=== PATIENT | female | born 1980 | race Caucasian/White ===

== ENCOUNTER 2017-08-23 09:53 | Emergency (ER) | payer OTHER, SELFPAY ==
[2017-08-23 09:54] VITALS: BP 130/56; PULSE 107; RESP 17; TEMP 36.3; O2SAT 96; BMI 38.0
--- NOTE | 2017-08-23 10:08 | ED.VISSUMM ---
- ER Visit Summary Date of Service: 08/23/17 Chief Complaint: Abdominal pain, nausea, vomiting, diarrhea History of Present Illness: The patient is a 36 F who states she started feeling ill at work around 2 AM this morning. She went home at 5 with body aches, nausea, vomiting, and diarrhea. She has not noted a fever. Physical Examination: Vital signs are significant only for heart rate 107, otherwise unremarkable. Patient's lying in bed no acute distress. Head neck examination is unremarkable. Heart is mildly tachycardic and regular. Lung sounds are clear. Abdomen is soft with mild lower abdominal tenderness palpation. There is no guarding or rebound. Hypoactive bowel sounds are noted. Test Results: CBC was normal white count with a mild left shift. Chemistry studies are unremarkable. Urinalysis shows 150 ketones. No sign of infection. test is negative. Emergency Department Course and Treatment: Patient was given IV fluids, morphine, and Zofran. She is tolerating ice chips at this time. She was given another dose of Toradol for mild recurrent pain. This time patient be given prescriptions for Zofran and Bentyl at home. She is to return for worsening symptoms or if she spikes a fever. Treatment Plan: [] Disposition: Discharge Impression: Viral gastroenteritis This note was generated with [employer] dictation software. It may contain incorrect words, spelling, and punctuation that were not noted in review of the chart prior to signing ED Disposition - Plan for ED Patient: Chief Complaint: Abd Pain Referrals: Care Physician,No Primary [Primary Care Provider] -
[2017-08-23 10:38] LABS: Absolute Lymphocyte Count 0.29 X10^3/ul (0.83-4.51); Basophil# 0.01 X10^3/uL; Basophil% 0.1 % (0-1); Differential Indicated SCAN CRITERIA MET; Eosinophil# 0.02 X10^3/uL; Eosinophils% 0.2 % (0-5); Hematocrit 37.9 % (37-47); Hemoglobin 13.2 g/dl (12.0-15.0); Lymphocyte # 0.29 X10^3/ul (4.0); Lymphocyte % 2.7 % (19-41); Mean Corp Hgb Conc 34.8 g/gl (32-36); Mean Corpuscular Hgb 31.8 pg (27.0-32.0); Mean Corpuscular Volume 91.3 fL (81-99); Mean Platelet Vol. 9.5 fl (6.2-12.0); Monocyte# 0.23 X10^3/uL; Monocyte% 2.2 % (0-10); Neutrophil # 9.98 X10^3/uL (2.7-7.7); Neutrophil % 94.6 % (47-70); POSITIVE COUNT NO; POSITIVE DIFFERENTIAL YES; POSITIVE MORPHOLOGY NO; Platelet Count 286 K/mm3 (150-450); RBC Distribution Width CV 12.5 % (11.6-14.6); RBC Distribution Width SD 41.6 fl (35.1-43.9); Red Blood Count 4.15 M/mm3 (4.2-5.4); White Blood Count 10.6 K/mm3 (4.4-11.0)
[2017-08-23 10:59] LABS: Anion Gap 10 (5-15); BUN 19 mg/dL (7-18); BUN/Creat Ratio 24.8 RATIO (10-20); Calcium,Total 8.8 mg/dL (8.5-10.1); Chloride 105 mmol/L (98-107); Creatinine, Serum 0.77 mg/dL (0.55-1.02); EST Glomerular Filtration Rate 91 mL/min (>60); Est Glom Filt Rate - Afr Amer 110 mL/min (>60); Estimated Creatinine Clearance 95.46 ml/min; Glucose 122 mg/dL (74-106); Sodium Level 138 mmol/L (136-145)
[2017-08-23 11:02] LABS: Pregnancy, Serum, hCG Quali. NEGATIVE Negative (0-9 Nonpreg)
[2017-08-23] MEDS: 0.9% Normal Saline 1,000 ML 1000 ML IV (11:16)
[2017-08-23] MEDS: Ondansetron 4 MG/2 ML Vial IV (11:17)
[2017-08-23 11:23] LABS: Mucous, Urine 0 SEEN /hpf (<or=2+); White Blood Cells 0 SEEN /hpf (0-5)
[2017-08-23 11:27] LABS: Color, Urine Yellow (Yellow); Glucose, Dipstick Normal (Normal); Leukocyte Esterase-Dipstick 25 /ul (Negative); Nitrite-Dipstick Negative (Negative); Occult Blood-Urine 150 /ul (Negative); Protein-Dipstick Negative (Negative); Specific Gravity, Urine 1.015 (1.002-1.030); Urine Bilirubin Dipstick Negative (Negative); Urine Clarity Clear (Clear); Urine Urobilinogen Normal (Normal)
[2017-08-23 11:29] LABS: Ketone-Dipstick 150 mg/dl (Negative)
[2017-08-23 11:35] LABS: Bacteria RARE /hpf (None Seen); Red Blood Cells-Urine 0-5 SEEN /hpf (0-5); Squamous Epithelial Cells - UA 5-10 SEEN /hpf (5-10)
[2017-08-23 12:01] VITALS: BP 122/64; PULSE 93; RESP 16; O2SAT 99
[2017-08-23] MEDS: Ketorolac 30 MG/ML Syringe IV (12:19)
[2017-08-23] MEDS: 0.9% Normal Saline 1,000 ML 150 ML IV (12:19)
--- NOTE | 2017-08-23 12:40 | ED.DEP ---
ED Disposition - Plan for ED Patient: Disposition: Home or Assisted Living Chief Complaint: Abd Pain Instructions: ED Gastroenteritis Viral Prescriptions: Ondansetron [Zofran Odt] 4 mg PO Q8H PRN PRN #10 tablet PRN Reason: Nausea Dicyclomine HCl [Bentyl] 20 mg PO TIDAC #20 capsule Referrals: Rosalina Billingsley MD [COURTESY STAFF PHYSICIAN] - As Needed
== END 2017-08-23 13:19 | disposition home or self-care (01) ==
PROVIDERS: Emergency Provider Emergency Medicine
DX: A08.4 Viral intestinal infection, unspecified (principal); K21.9 Gastro-esophageal reflux disease without esophagitis
CPT/HCPCS: 80048; 81001; 84703; 85025; 96361; 96374; 96375; 99283; J7030; J2405

== ENCOUNTER → 2018-10-24 13:13 | Outpatient (CLI) | payer OTHER, SELFPAY ==
[2018-10-23 13:33] VITALS: BMI 38.0
--- NOTE | 2018-10-24 13:15 | RAD_ITS ---
STUDY: X-RAY - LUMBAR SPINE REASON FOR EXAM: Female, 37 years old. Back pain TECHNIQUE: 3 view(s) of the lumbar spine were obtained. COMPARISON: None FINDINGS: There is no evidence of fracture or dislocation in the lumbar spine. The vertebral body heights are well-maintained. There are moderate degenerative changes at L5/S1 with disc space narrowing. RAD/Lumbar Spine 2 or 3 Views IMPRESSION: No fracture or dislocation in the lumbar spine. Moderate degenerative changes at L5/S1. Electronically Signed: Aston Wills, at 16:46 EDT Tel , Service support ,
== END ==
PROVIDERS: Family Provider Family Medicine; PCP Family Medicine; Referring Provider Family Medicine; Visit Provider Family Medicine
DX: R20.0 Anesthesia of skin (principal)
CPT/HCPCS: 72100

== ENCOUNTER → 2018-11-05 13:06 | Outpatient (CLI) | payer OTHER, SELFPAY ==
[2018-10-23 13:33] VITALS: BMI 38.0
--- NOTE | 2018-11-05 13:07 | US_ITS ---
STUDY: ULTRASOUND OF THE FEMALE PELVIS - COMPLETE REASON FOR EXAM: Female, 37 years old. Pain in the pelvis. TECHNIQUE: Transabdominal and transvaginal. (Transvaginal imaging, if present, was performed for enhanced visualization of uterus and endometrium, and posterior adnexal structures). COMPARISON: None. FINDINGS: Uterus retroverted 7.8 x 5.8 x 5.2 cm, fibroid measuring 21 mm, otherwise normal myometrial echotexture. Endometrium 11 mm, normal echotexture. Minimal left adnexal free fluid. No cul-de-sac or adnexal free fluid. Normal cervix. Right ovary 32 x 20 x 18 mm, normal echotexture and vascularity, 15 mm complex cyst likely representing a hemorrhagic cyst. No right adnexal mass or suspicious cyst. Left ovary 47 x 32 x 26 mm, normal echotexture and vascularity 30 x 27 x 19 mm simple cyst, thin-walled, centrally anechoic. Adjacent fluid suggesting cyst rupture. US/Pelvic (Non ) IMPRESSION: 1. 15 mm complex cystlike focus within the right ovary, probably a hemorrhagic cyst. 2. Simple cyst of the left ovary measuring 30 mm with fluid in the adjacent left adnexa suggesting cyst rupture. 3. 21 mm left left posterior uterine body fibroid. Electronically Signed: Gregg Kay MD at 15:42 EDT Tel , Service support ,
--- NOTE | 2018-11-05 13:28 | US_ITS ---
STUDY: ULTRASOUND OF THE FEMALE PELVIS - COMPLETE REASON FOR EXAM: Female, 37 years old. Pain in the pelvis. TECHNIQUE: Transabdominal and transvaginal. (Transvaginal imaging, if present, was performed for enhanced visualization of uterus and endometrium, and posterior adnexal structures). COMPARISON: None. FINDINGS: Uterus retroverted 7.8 x 5.8 x 5.2 cm, fibroid measuring 21 mm, otherwise normal myometrial echotexture. Endometrium 11 mm, normal echotexture. Minimal left adnexal free fluid. No cul-de-sac or adnexal free fluid. Normal cervix. Right ovary 32 x 20 x 18 mm, normal echotexture and vascularity, 15 mm complex cyst likely representing a hemorrhagic cyst. No right adnexal mass or suspicious cyst. Left ovary 47 x 32 x 26 mm, normal echotexture and vascularity 30 x 27 x 19 mm simple cyst, thin-walled, centrally anechoic. Adjacent fluid suggesting cyst rupture. US/Transvaginal Non- IMPRESSION: 1. 15 mm complex cystlike focus within the right ovary, probably a hemorrhagic cyst. 2. Simple cyst of the left ovary measuring 30 mm with fluid in the adjacent left adnexa suggesting cyst rupture. 3. 21 mm left left posterior uterine body fibroid. Electronically Signed: Gregg Kay MD at 15:42 EDT Tel , Service support ,
== END ==
LOC: OPUS 13:07
PROVIDERS: Family Provider Family Medicine; PCP Family Medicine; Referring Provider Family Medicine; Visit Provider Family Medicine
DX: R10.2 Pelvic and perineal pain (principal)
CPT/HCPCS: 76830; 76856; 93976

== ENCOUNTER → 2019-08-28 | Outpatient (CLI) | payer OTHER, SELFPAY ==
[2019-08-28 13:06] VITALS: BMI 38.0
[2019-09-02 13:44] LABS: HPV APTIMA, High Risk Negative (Negative)
== END | disposition home or self-care (01) ==
LOC: LABSPEC 17:15
PROVIDERS: PCP Family Medicine; Referring Provider Nurse Practitioner Women's Health; Visit Provider Nurse Practitioner Women's Health
DX: Z12.4 Encounter for screening for malignant neoplasm of cervix (principal)
CPT/HCPCS: 87624; 88175; G0145

== ENCOUNTER → 2020-10-14 14:56 | Outpatient (CLI) | payer OTHER, SELFPAY ==
[2020-10-13 15:58] VITALS: BMI 32.3
[2020-10-14 16:46] LABS: Absolute Lymphocyte Count 2.24 X10^3/uL (0.83-4.51); Absolute Neutrophil Count 4.1 X10^3/uL (2.0-7.7); Basophil# 0.03 X10^3/uL; Basophil% 0.4 % (0-1); Eosinophil# 0.03 X10^3/uL; Eosinophils% 0.4 % (0-5); Hematocrit 34.7 % (37-47); Hemoglobin 11.5 g/dL (12.0-15.0); Lymphocyte # 2.24 X10^3/ul (0.83-4.51); Lymphocyte % 33.1 % (19-41); Mean Corp Hgb Conc 33.1 g/dL (32-36); Mean Corpuscular Volume 96.7 fL (81-99); Mean Platelet Vol. 10.1 fl (6.2-12.0); Monocyte# 0.36 X10^3/uL; Monocyte% 5.3 % (0-10); NRBC Flagged by Analyzer 0 % (0-5); Neutrophil % 60.7 % (47-70); Platelet Count 329 K/mm3 (150-450); RBC Distribution Width SD 42.2 fl (35.1-43.9); Red Blood Count 3.59 M/mm3 (4.2-5.4); White Blood Count 6.8 K/mm3 (4.4-11.0)
[2020-10-14 17:00] LABS: Vitamin D,25 Hydroxy 35.7 ng/mL
== END ==
PROVIDERS: PCP Family Medicine; Referring Provider Family Medicine; Visit Provider Family Medicine
DX: R79.89 Other specified abnormal findings of blood chemistry (principal); R53.83 Other fatigue
CPT/HCPCS: 36415; 82306; 85025

== ENCOUNTER 2021-09-13 15:17 | Outpatient (CLI) | payer BC, SELFPAY ==
--- NOTE | 2021-09-13 15:21 | US_ITS ---
STUDY: SUPERFICIAL ULTRASOUND OF THE LEFT MID BACK OF 1540 HOURS ON 09/13/2021 REASON FOR EXAM: 40-year-old female with a suspected lipoma on the back. TECHNIQUE: A superficial ultrasound was performed with real-time and static arango-scale imaging. COMPARISON: None. FINDINGS: There is a 3.8 cm x 2.2 cm x 0.8 cm slightly hyperechoic lesion just below the skin of the left mid back. Past history of characterization compatible with subcutaneous fat. It most likely represents a lipoma. There is no ultrasound evidence of valvular cystic or solid mass lesions in the mid left back region. US/Other Unlisted US Procedure IMPRESSION: 1. Probable 3.8 cm x 2.2 cm x 0.8 cm lipoma in the left mid back region. 2. No demonstration of other cystic or solid mass lesions in the left mid back region. Electronically Signed: Maury Armstrong MD at 18:28 EDT ,
== END 2021-09-13 23:59 | disposition home or self-care (01) ==
LOC: US 15:20
PROVIDERS: PCP Family Medicine; Referring Provider Family Medicine; Visit Provider Family Medicine
DX: D17.1 Benign lipomatous neoplasm of skin and subcutaneous tissue of trunk (principal)
CPT/HCPCS: 76999

== ENCOUNTER 2021-11-05 17:14 | Emergency (ER) | payer BC, SELFPAY ==
[2021-11-05 17:15] VITALS: BP 137/72; PULSE 76; RESP 16; TEMP 37.1; O2SAT 99; BMI 35.5
--- NOTE | 2021-11-05 19:35 | EDS_ITS ---
HPI History of Present Illness Chief Complaint: GI Bleed Informant: patient Onset/Context/Timing Onset: Weeks Context: Gradual Onset Timing: Waxes and wanes Current Severity: Moderate Maximum Severity: Moderate Narrative Narrative: Patient present secondary to GI bleed. She has had bright red blood in the stool intermittently for the last month. She is also occasionally noted dark black stools. She states her abdomen feels crampy and bloated. Today she went to the bathroom and just passed straight red blood with no stool. She called her PCPs office to make an appointment she was told to come to the emergency room. Denies prior work-up for symptoms. She has never had a colonoscopy. She does report a history of colon cancer in the family but denies history of ulcerative colitis, IBS, Crohn's disease. [facility] Medical History (Updated 11/05/21 @ 21:[address] Jana Garrison MD) Frequent headaches GERD (gastroesophageal reflux disease) Seasonal allergies Vitamin deficiency Home Medications ibuprofen 200 mg capsule 200 mg PO Q6H PRN 08/28/19 [History Last Taken Unknown] iron 18 mg tablet 18 mg PO DAILY 02/09/21 [History Last Taken Unknown] multivitamin 1 tab PO DAILY 02/09/21 [History Last Taken Unknown] norgestimate 0.25 mg-ethinyl estradiol 35 mcg tablet 1 tab PO DAILY #84 tab 02/09/21 [Rx Last Taken Unknown] Allergy/AdvReac Type Severity Reaction Status Date / Time No Known Allergies Allergy Verified 11/05/21 17:15 Family History Father Alcoholism Anxiety Depression Hypertension Brother Alcoholism Depression Mother Asthma Anxiety Depression Cancer lung Grandfather Diabetes Alcoholism Cancer kidney Hypertension Grandmother Cancer Aunt Thyroid disorder Cancer Grandfather Colon cancer Surgical History History of neck surgery Social History Smoking Status: Former smoker alcohol intake: current alcohol intake frequency: holidays/special occasions only details: social substance use type: does not use caffeine: Yes what type of physical activity do you participate in: none and walking seatbelt use: always do you feel safe at home: Yes additional social history: Steven Nieto Patient works at [employer] ROS ED Constitutional Constitutional ED: Denies chills or fever(s) Eyes Eyes: Denies change in vision ENT ENT ED: Denies sore throat Cardiovascular Cardiovascular: Denies chest pain Respiratory/Chest Respiratory/Chest: Denies cough or dyspnea Gastrointestinal Gastrointestinal: Reports abdominal pain and melena; Denies diarrhea, nausea or vomiting Genitourinary Genitourinary ED: Denies dysuria Musculoskeletal Musculoskeletal: Denies back pain Integumentary Denies rash Neurologic Neurologic: Denies headache(s) or weakness Allergic/Immunologic Allergic/Immunologic ED: Denies urticaria EXAM Physical Exam Const Vital Signs: 11/05/21 17:15 Temperature 98.8 F Temperature Source Temporal Pulse Rate 76 Respiratory Rate 16 Blood Pressure 137/72 H Blood Pressure Mean 93 Pulse Ox 99 Oxygen Delivery Method Room Air Positive well nourished and well developed General Appearance ED: well developed HEENT Reports moist mucous membranes Eyes PERRL and EOMs intact bilaterally Neck supple Chest Wall inspection of chest normal and palpation of chest normal Resp normal respiratory effort and clear to auscultation bilaterally Cardio regular rate and regular rhythm GI normal to inspection, nondistended, normoactive bowel sounds and non-tender Palpation: soft Back/Spine no CVA tenderness Extremity normal to inspection Neuro oriented x3 Sensorium / Orientation: alert Psych mental status grossly normal Skin no rashes or lesions noted MDM MDM MDM Narrative Medical decision making narrative: Lab work obtained. Lab Data Attestation: I reviewed the patient's lab results. Labs: Laboratory Results - last 24 hr 11/05/21 11/05/21 11/05/21 19:46 19:46 19:46 WBC 6.1 RBC 3.64 L Hgb 11.7 L Hct 34.7 L MCV 95.3 MCH 32.1 H MCHC 33.7 RDW Std Deviation 41.7 RDW Coeff of [place] 11.9 Plt Count 304 MPV 9.3 Immature Gran % (Auto) 0.200 Neut % (Auto) 60.6 Lymph % (Auto) 31.8 [place] % (Auto) 6.4 Eos % (Auto) 0.7 Baso % (Auto) 0.3 Absolute Neuts (auto) 3.7 Absolute Lymphs (auto) 1.94 Nucleated RBC % 0 PT 13.7 INR 1.1 APTT 27.1 Sodium 140 Potassium 3.7 Chloride 106 Carbon Dioxide 28.0 Anion Gap 6 BUN 12 Creatinine 0.73 Estim Creat Clear Calc 96.86 Est GFR (MDRD) Af Amer 114 Est GFR (MDRD) Non-Af 94 BUN/Creatinine Ratio 16.4 Glucose 99 Calcium 9.0 Serum , Qual 11/05/21 19:46 WBC RBC Hgb Hct MCV MCH MCHC RDW Std Deviation RDW Coeff of [place] Plt Count MPV Immature Gran % (Auto) Neut % (Auto) Lymph % (Auto) [place] % (Auto) Eos % (Auto) Baso % (Auto) Absolute Neuts (auto) Absolute Lymphs (auto) Nucleated RBC % PT INR APTT Sodium Potassium Chloride Carbon Dioxide Anion Gap BUN Creatinine Estim Creat Clear Calc Est GFR (MDRD) Af Amer Est GFR (MDRD) Non-Af BUN/Creatinine Ratio Glucose Calcium Serum , Qual NEGATIVE Treatment and Re-Evaluation Narrative: Hemoglobin stable 11.7 from 1 year ago. Coags unremarkable. Chemistry studies normal. On repeat evaluation patient stable. Rectal examination performed. There is a small hemorrhoid that is noninflamed with no blood. Patient is had intermittent bleeding for a month with stable vital signs and labs. I do feel she can follow-up as an outpatient. She will be referred to Dr. Alvarez. I did advise her that if there is a delay in getting into see him she should follow-up with her primary care physician for referral to surgery to see if she can be scoped that way. She voices understanding and agreement. Return instructions provided. Discharge Plan Triage Chief Complaint: GI Bleed ED Provider: Jana Garrison Dx/Rx/DC Orders Clinical Impression: GI bleed Instructions: ED Lower GI Bleeding (Stable) Prescriptions: No Action ibuprofen 200 mg capsule 200 mg PO Q6H PRNRF: 0 multivitamin Tablet 1 tab PO DAILY RF: 0 iron 18 mg tablet 18 mg PO DAILY RF: 0 norgestimate-ethinyl estradiol [[place]] 0.25-35 mg-mcg tablet 1 tab PO DAILY Qty: 84 RF: 4 Primary Care Provider: Ben Loza Referrals: Ben Loza DO [Primary Care Provider] - Rao Alvarez DO [STAFF PHYSICIAN] - As soon as possible Disposition Disposition: Home, Self Care
[2021-11-05] MEDS: 0.9% Normal Saline 1,000 ML 150 ML IV (19:45)
[2021-11-05 19:57] LABS: Absolute Lymphocyte Count 1.94 X10^3/uL (0.83-4.51); Absolute Neutrophil Count 3.7 X10^3/uL (2.0-7.7); Basophil# 0.02 X10^3/uL; Basophil% 0.3 % (0-1); Eosinophil# 0.04 X10^3/uL; Eosinophils% 0.7 % (0-5); Hematocrit 34.7 % (37-47); Hemoglobin 11.7 g/dL (12.0-15.0); Lymphocyte # 1.94 X10^3/ul (0.83-4.51); Lymphocyte % 31.8 % (19-41); Mean Corp Hgb Conc 33.7 g/dL (32-36); Mean Corpuscular Hgb 32.1 pg (27.0-32.0); Mean Corpuscular Volume 95.3 fL (81-99); Mean Platelet Vol. 9.3 fl (6.2-12.0); Monocyte# 0.39 X10^3/uL; Monocyte% 6.4 % (0-10); NRBC Flagged by Analyzer 0 % (0-5); Neutrophil # 3.71 X10^3/uL (2.7-7.7); Neutrophil % 60.6 % (47-70); Platelet Count 304 K/mm3 (150-450); RBC Distribution Width CV 11.9 % (11.6-14.6); RBC Distribution Width SD 41.7 fl (35.1-43.9); Red Blood Count 3.64 M/mm3 (4.2-5.4); White Blood Count 6.1 K/mm3 (4.4-11.0)
[2021-11-05 20:11] LABS: Internal QC Validated? YES +Cl - CLEAR BKGD; Pregnancy, Serum, hCG Quali. NEGATIVE Negative
[2021-11-05 20:12] LABS: Anion Gap 6 (5-15); BUN 12 mg/dL (7-18); BUN/Creat Ratio 16.4 RATIO (10-20); Chloride 106 mmol/L (98-107); Creatinine, Serum 0.73 mg/dL (0.55-1.02); EST Glomerular Filtration Rate 94 mL/min (>60); Est Glom Filt Rate - Afr Amer 114 mL/min (>60); Estimated Creatinine Clearance 96.86 ml/min; Glucose 99 mg/dL (74-106); Potassium 3.7 mmol/L (3.5-5.1); Sodium Level 140 mmol/L (136-145)
[2021-11-05 20:43] LABS: International Normalized Ratio 1.1; Prothrombin Time (Protime)PT. 13.7 SECONDS (11.7-14.9)
[2021-11-05 20:44] LABS: Partial Thromboplast Time 27.1 Seconds (24.1-36.2)
== END 2021-11-05 21:44 | disposition home or self-care (01) ==
PROVIDERS: Emergency Provider Emergency Medicine; PCP Family Medicine; Visit Provider Emergency Medicine
DX: K92.2 Gastrointestinal hemorrhage, unspecified (principal); Z80.0 Family history of malignant neoplasm of digestive organs; Z87.891 Personal history of nicotine dependence
CPT/HCPCS: 80048; 84703; 85025; 85610; 85730; 96360; 96361; 99283; J7030; A4216

== ENCOUNTER → 2021-12-21 | Outpatient (CLI) | payer BC, SELFPAY ==
[2021-12-21 15:47] LABS: Absolute Lymphocyte Count 1.56 X10^3/uL (0.83-4.51); Basophil# 0.02 X10^3/uL; Basophil% 0.3 % (0-1); Eosinophil# 0.04 X10^3/uL; Eosinophils% 0.5 % (0-5); Hemoglobin 12.3 g/dL (12.0-15.0); Lymphocyte # 1.56 X10^3/ul (0.83-4.51); Lymphocyte % 19.6 % (19-41); Mean Corp Hgb Conc 34.2 g/dL (32-36); Mean Corpuscular Hgb 32.2 pg (27.0-32.0); Mean Corpuscular Volume 94.2 fL (81-99); Mean Platelet Vol. 9.5 fl (6.2-12.0); Monocyte# 0.31 X10^3/uL; Monocyte% 3.9 % (0-10); NRBC Flagged by Analyzer 0 % (0-5); Neutrophil # 5.98 X10^3/uL (2.7-7.7); Neutrophil % 75.3 % (47-70); Platelet Count 338 K/mm3 (150-450); RBC Distribution Width CV 12.2 % (11.6-14.6); RBC Distribution Width SD 42.4 fl (35.1-43.9); Red Blood Count 3.82 M/mm3 (4.2-5.4); White Blood Count 7.9 K/mm3 (4.4-11.0)
[2021-12-21 15:59] LABS: Erythrocyte Sedimentation Rate 4 mm/hr (0-30)
[2021-12-21 16:16] LABS: ALB/GLOB Ratio 1.1 RATIO (0.9-2.4); AST(SGOT) 18 U/L (15-37); Alanine Aminotransfer ALT/SGPT 21 U/L (13-56); Albumin, Serum 3.9 g/dL (3.2-5.0); Alkaline Phosphatase 40 U/L (45-117); Anion Gap 7 (5-15); BUN 15 mg/dL (7-18); BUN/Creat Ratio 20.5 RATIO (10-20); CRP < 2.90 mg/L (0.0-3.0); Calcium,Total 9.1 mg/dL (8.5-10.1); Chloride 104 mmol/L (98-107); Creatinine, Serum 0.73 mg/dL (0.55-1.02); EST Glomerular Filtration Rate 94 mL/min (>60); Est Glom Filt Rate - Afr Amer 113 mL/min (>60); Ferritin 59 ng/mL (8-252); Globulin 3.5 g/dL (2.2-4.2); Glucose 84 mg/dL (74-106); Iron 119 ug/dL (50-170); Iron Binding Capacity,Total 435 ug/dL (250-450); Potassium 3.5 mmol/L (3.5-5.1); Protein, Total 7.4 g/dL (6.4-8.2); Sodium Level 138 mmol/L (136-145)
[2021-12-23 14:09] LABS: Anti-Centromere B Ab <0.2 AI (0.0-0.9); Anti-Chromatin <0.2 AI (0.0-0.9); Anti-Jo <0.2 AI (0.0-0.9); Anti-Scleroderma-70 AB <0.2 AI (0.0-0.9); RNP Ab <0.2 AI (0.0-0.9); SJOGREN'S Anti-SS-A test < 0.2 AI (0.0-0.9); SJOGREN'S Anti-SS-B test < 0.2 AI (0.0-0.9); Smith Ab <0.2 AI (0.0-0.9)
[2021-12-23 16:00] LABS: Anti-dsDNA Ab <1 IU/mL (0-9)
[2021-12-23 18:08] LABS: Endomysial Antibody IgA Negative (Negative)
[2021-12-24 10:03] LABS: Immunoglobulin A 167 mg/dL (87-352); t-Transglutaminase IgA <2 U/mL (0-3)
== END | disposition home or self-care (01) ==
LOC: LAB 14:07
PROVIDERS: PCP Family Medicine; Referring Provider Nurse Practitioner Adult Health; Visit Provider Nurse Practitioner Adult Health
DX: K92.1 Melena (principal); K21.9 Gastro-esophageal reflux disease without esophagitis; R10.9 Unspecified abdominal pain
CPT/HCPCS: 36415; 80053; 82728; 82784; 83516; 83540; 83550; 85025; 85652; 86140; 86225; 86235; 86255

== ENCOUNTER → 2021-12-22 | Outpatient (CLI) | payer BC, SELFPAY ==
[2021-12-29 09:34] LABS: Calprotectin, Stool 61 ug/g (0-120)
== END | disposition home or self-care (01) ==
LOC: LABSPEC 16:14
PROVIDERS: PCP Family Medicine; Visit Provider Nurse Practitioner Adult Health
DX: K58.9 Irritable bowel syndrome, unspecified (principal); K92.1 Melena; K21.9 Gastro-esophageal reflux disease without esophagitis; R10.9 Unspecified abdominal pain
CPT/HCPCS: 83630; 83993

== ENCOUNTER → 2022-01-12 | Outpatient (CLI) | payer OTHER, SELFPAY ==
--- NOTE | 2022-01-12 15:58 | CT_ITS ---
EXAM: CT ABDOMEN AND PELVIS WITH INTRAVENOUS CONTRAST CLINICAL INDICATION: blood in stool, abd pain, RLQ tender on exam -- oral and iv. BLOATING AND CRAMPING X 2 MONTHS TECHNIQUE: Helically acquired images were obtained of the abdomen and pelvis with intravenous contrast. DLP: 1119.30 mGy-cm and CTDI: 15.[address] exam was performed using one or more of the following dose reduction techniques: automated exposure control, adjustment of the mA and/or kV according to patient size, and/or use of iterative reconstruction technique. This report was created using NaviExpert report SCHEDit technology. CONTRAST: Oral and amp; IV Readi-CAT and amp; 100mL Isovue-300 COMPARISON: None. FINDINGS: LOWER THORAX: Unremarkable. Lung bases are clear. No cardiomegaly. No significant pericardial effusion. ABDOMEN: LIVER: Small incidental simple cyst within the central liver. GALLBLADDER AND BILE DUCTS: Unremarkable. No calcified gallstones. No gallbladder distention or wall edema. No intra- or extrahepatic biliary ductal dilation. PANCREAS: Unremarkable. No focal cystic or solid mass. SPLEEN: Unremarkable. Normal size without focal cystic or solid mass. ADRENALS: Unremarkable. No nodules. KIDNEYS AND URETERS: Unremarkable. Normal renal size and position. No hydronephrosis. STOMACH AND BOWEL: The stomach is decompressed. No periduodenal inflammatory changes or distended small bowel loops. Oral contrast passes through the small bowel into the colon, without evidence for small bowel obstruction. No small bowel mural thickening is seen. The cecum, ascending colon and transverse colon containing oral contrast, gas and a moderate amount of stool. Multiple diverticula project from the descending and sigmoid colon, without evidence for acute diverticulitis. No findings of small bowel obstruction or colitis. PELVIS: APPENDIX: Normal appendix. No findings of acute appendicitis. BLADDER: Unremarkable. REPRODUCTIVE: Normal size uterus which tilts to the left. No adnexal mass. ABDOMEN and PELVIS: INTRAPERITONEAL SPACE: Unremarkable. No ascites or other fluid collection. No free air. BONES/JOINTS: Severe degenerative disc space narrowing at L5/S1 with endplate sclerosis, marginal osteophytes and vacuum disc phenomenon. Narrowing of the inferior neural foramina at this level by posterolateral osteophytes. No suspicious lytic or blastic abnormality. SOFT TISSUES: Unremarkable. No discrete abdominal or pelvic wall hernia. VASCULATURE: Unremarkable. Abdominal aorta is non-dilated. LYMPH NODES: Unremarkable. No enlarged lymph nodes. CT/Abdomen/Pelvis WITH Contrast IMPRESSION: Normal appendix. No findings of inflammatory bowel disease. Colonic diverticulosis without evidence for acute diverticulitis. No acute intra-abdominal abnormality. Electronically Signed: Rayray Spaulding MD at 6:39 EDT ,
== END | disposition home or self-care (01) ==
LOC: CT 15:48
PROVIDERS: PCP Family Medicine; Visit Provider Nurse Practitioner Adult Health
DX: R10.813 Right lower quadrant abdominal tenderness (principal); K92.1 Melena
CPT/HCPCS: 74177; Q9967

== ENCOUNTER 2022-03-02 07:50 | Day surgery (SDC) | payer OTHER, SELFPAY ==
--- NOTE | 2022-03-02 | GASB_PTH ---
PATIENT: MONA UPTON LOC: EN U#:[id number] AGE/SX: 41/F ROOM: RE03/02/[address]: Dr. Rao Alvarez DO : 1980 BED: DIS: 03/02/2022 SPEC #: [id number] RECD: 03/02/22 12:49 STATUS: SHERRELL REMagdy #: [id number] DARRELL: 03/02/22 00:[address]: Rao Alvarez DEPT: SURGICAL PATHOLOGY RECD BY: Jai Awad ENTERED: 03/02/22 12:50 SP TYPE: Gastric Bx OTHR DR: Dr. Ben Loza, DO Tissues: A - Duodenum, NOS B - Gastric mucous membrane C - Esophageal mucous membrane D - Rectum, NOS Procedures: Special Stain Group II Surgery Specimen Level IV Alcian Blue/PAS (control) HEADER OPERATION: Colonoscopy, EGD ([facility]) with biopsies PRE-OP DIAGNOSIS: Hematochezia, GERD, abdominal pain, IBS TISSUE SUBMITTED: A ? Duodenum biopsy, B ? Gastric body biopsy, C ? Distal esophagus biopsy, D ? Biopsy of mass in rectum MICROSCOPIC DIAGNOSIS A. 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 B. Gastric body, biopsy: Minimal gastritis. See microscopic description and comment. C. Distal esophagus, biopsy: Fragments of gastric mucosa with chronic inflammation. Intestinal metaplasia (goblet cell metaplasia) not identified. See comment. D. Rectal mass, biopsy: Well-differentiated invasive adenocarcinoma. See comment. SJ:sherice 03/03/2022 COMMENT B. The results of immunohistochemistry for Helicobacter pylori will be reported separately ([id number]). C. Alcian blue/PAS stain with matched control is used in the evaluation of the specimen. D. Immunohistochemistry ([id number]) for microsatellite instability (mismatch repair of protein) will be performed and the results will be reported separately. Case has been reviewed in consultation with Dr. Vasquez who concurs with the above diagnosis. IDC:AM MICROSCOPIC DESCRIPTION Slides are reviewed. B. The specimen shows fragments of gastric mucosa with chronic inflammatory cell infiltrates in the lamina propria consisting of lymphocytes and plasma cells, consistent with minimal chronic gastritis. GROSS DESCRIPTION A - Received in fixative is one container labeled with the patient's name and designated duodenum biopsy. The specimen consists of one irregular fragment of light avalos soft tissue that measures 0.4 x 0.4 x 0.1 cm. The specimen is totally submitted in one cassette. B - Received in fixative is one container labeled with the patient's name and designated gastric body biopsy. The specimen consists of one irregular fragment of light avalos soft tissue that measures 0.8 x 0.3 x 0.1 cm. The specimen is totally submitted in one cassette. C - Received in fixative is one container labeled with the patient's name and designated distal esophagus biopsy. The specimen consists of two irregular fragments of light avalos soft tissue that in aggregate measure 0.8 x 0.3 x 0.1 cm. The specimen is totally submitted in one cassette. D - Received in fixative is one container labeled with the patient's name and designated biopsy of mass in rectum. The specimen consists of multiple irregular fragments of light avalos soft tissue that in aggregate measure 1.5 x 0.8 x 0.1 cm. The specimen is totally submitted in one cassette. / SJ:rg 03/02/2022 TC:0 [facility]: [id number] x4, [id number]
[2022-03-02 08:14] VITALS: BP 123/75; PULSE 85; RESP 14; TEMP 36; O2SAT 99; BMI 33.4
--- NOTE | 2022-03-02 08:15 | PCM.HP.BLA ---
History and Physical Date of Admission: 03/02/22 MONA UPTON, is a 41 F who presents to the office today for f/u ED visit for blood in stool She has been taking and iron supplement daily for about a year.? She has not been taking Pepto-Bismol.? Starting in early September 2021 she has had intermittent bright red blood per rectum with bowel movements as well as periodic black stools.? On one occasion she passed red blood per rectum without having a bowel movement.? She called her primary care office and was directed to go to the emergency room.? Therefore she went to the ED on 11/05/2021.? Hemoglobin was 11.7.? Rectal exam was performed, there was a small hemorrhoid with no blood.? She also passed some bright red blood per rectum without having a bowel movement. She stopped ibuprofen then.? She was seen in primary care on 11/12/2021; she was started on dicyclomine 20 mg twice daily for abdominal discomfort, as well as pantoprazole 40 mg daily for GERD.? She was given low FODMAP diet information and has found that helpful. She reports a lifelong history of GI issues, since her parents had the same issues she just thought this was normal.? She has always had heartburn.? Previously she always had burning in her esophagus, however lately she experienced more of a burning in her stomach.? Now that she is taking pantoprazole she is no longer waking up at night with reflux.? Also she no longer has the burning in her stomach.? She previously took [id number] famotidine as needed with partial relief of symptoms.? The dicyclomine is very helpful for bloating and cramping abdominal pain.? She reports the bloating and cramping has also been a lifelong issue. ? Some nausea, not often, no pattern. No vomiting. No difficulty swallowing. Briefly lost appetite for a week, thinks that may have been when she started pantoprazole and dicyclomine, that resolved spontaneously. No weight change.? Her normal bowel pattern was to alternate between diarrhea and constipation, now improved, having BM which is normal every day once a day, but may have some urgency. No hx EGD or colonoscopy. FH colon cancer maternal grandfather, maternal uncle. Mother had RA, colon polyps, from lung cancer. Father has RA. She was taking ibuprofen for aching in her legs, neck and back, as well as headaches. Comorbidities include headaches, seasonal allergies, vitamin D deficiency, PMS, dysmenorrhea, depression ROS Const Constitutional: Positive for fatigue and headache(s) ENT ENT: Positive for headache(s); No difficulty swallowing Gastro GI: Positive for abdominal pain, bloating, heartburn, excessive flatus and nausea/dyspepsia; No belching, change in bowel habits, change in stool character, coffee ground emesis, constipation, cramping, diarrhea, difficulty swallowing, feeling full early, incontinent of stools, Vomiting blood/hematemesis, Blood in stool, loose stools, Black,tarry stools, pain with swallowing, vomiting or other Musc Musculoskeletal: Positive for muscle cramps, muscle weakness, stiffness and leg pain at night; No joint pain Skin Skin: No yellowing of the eye or itchy eyes Neuro Neurology: Positive for headache(s) Psych Psychiatric: No anxiety and No depression Endo Endocrine: Positive for fatigue Aller/Imm Allergy/Immunologic: No itchy eyes Jean Claude/Lymp Hematologic/Lymphatic: No easy bleeding or easy bruising Exam Const General: cooperative, comfortable, well developed and well groomed Nutritional Appearance: obese Eyes General: appearance normal, both eyes and all related structures Resp Effort & Inspection: normal respiratory effort GI Inspection: normal to inspection Palpation: soft, no hepatosplenomegaly, no masses and tender in the RLQ and periumbilically Skin General: no jaundice Neuro Speech: speech normal Gait: normal gait Quality Reporting Tobacco Screening ([facility] 138) Smoking Status: Former smoker Assessment and Plan Assessment and Plan (1) Hematochezia: ?Status:?Acute ?Plan: 41-year-old female with hematochezia and melena, anemia, GERD, possible IBS with alternating diarrhea and constipation.? Differential diagnosis includes esophagitis, gastritis, peptic ulcer disease, IBD.? Biochemical work-up will be initiated today to include evaluation for IBD, autoimmune, celiac, iron studies.? Stool tests for inflammation.? Insurance changing end of this week so patient requests we hold off on ordering CT until later.? CT recommended considering GI bleed, abdominal pain, abdominal tenderness on exam.? She will be scheduled for EGD and colonoscopy; need to evaluate for Jessica's considering long history of heartburn; need to evaluate lower GI tract considering melena and hematochezia.? Follow-up appointments will be scheduled. (2) GERD (gastroesophageal reflux disease): ?Status:?Acute ?Plan: Continue pantoprazole (3) Abdominal pain: ?Status:?Acute ?Plan: As above (4) IBS (irritable bowel syndrome): ?Status:?Acute ?Plan: Continue dicyclomine I have re-examined the patient. There are no clinical changes since date of exam.
[2022-03-02] MEDS: Lactated Ringers 1,000 ML 15 ML IV (08:18)
[2022-03-02 08:44] LABS: Internal QC Validated? YES +Cl - CLEAR BKGD; Pregnancy, Serum, hCG Quali. NEGATIVE Negative
--- NOTE | 2022-03-02 09:00 | IMM_PTH ---
PATIENT: MONA UPTON LOC: EN U#:[id number] AGE/SX: 41/F ROOM: RE03/02/[address]: Dr. Rao Alvarez DO : 1980 BED: DIS: 03/02/2022 SPEC #: [id number] RECD: 03/02/22 13:26 STATUS: SHERRELL REQ #: [id number] DARRELL: 03/02/22 09:[address]: Rao Alvarez DEPT: IMMUNOHISTOCHEMISTRY RECD BY: Ysabel Abel ENTERED: 03/02/22 13:26 SP TYPE: IMMUNO OTHR DR: Dr. Ben Loza, DO Tissues: B - Stomach, NOS D - Rectum, NOS Procedures: H Pylori (initial) MSH2 (add) MLH-1 (add) MSH6 (add) Anti-PMS2 (add) STEELE-2 (add) KI-67 (add) P53 (add) HER-2-JERONIMO (initial) PHYSICIAN & INSTITUTION [address] [address] SPECIMEN INFORMATION: Tissue Source: B ? Gastric body, D ? Rectum mass biopsy Clinical Info: Hematochezia, GERD, abdominal pain, IBS Specimen Number: [id number] B & D CPT code: 27118 x2, 36817 x7 METHODOLOGY: Deparaffinized sections of prefer/formalin-fixed tissue or PAP/DQ stained slides are incubated with monoclonal/polyclonal antibodies/oligonucleotide probes. Localization is made via biotin free immunoperoxidase method. Appropriate controls are performed and reacted as expected. Results on target cell population are indicated in the following table: RESULTS: ANTIBODY / CLONE RESULT Block B H Pylori (polyclonal) negative Block D Her-2neu (CB11) negative (0) STEELE-2 (SP21) positive MLH-1 (M1) positive MSH2 (25D12) positive MSH6 (44) positive PMS2 (YTH4126) positive Ki-67 (30-9) positive, high P53 (DO-7) positive These tests were developed and their performance characteristics determined by [facility]. They may not have been cleared or approved by the U.S. Food and Drug Administration. The FDA has determined that such clearance or approval is not necessary. The above immunohistochemical/dualISH markers are ordered and reviewed by the Pathologist. INTERPRETATION: B. Gastric body, biopsy: Negative for Helicobacter pylori organisms. D. Rectum mass, biopsy Invasive adenocarcinoma. Result of Microsatellite Instability Study: Negative (no loss of mismatch protein; no microsatellite instability detected). SJ:sherice 03/04/2022
[2022-03-02] MEDS: 0.9% Normal Saline (Pres. free 10 ML Vial (09:46)
[2022-03-02] MEDS: Epinephrine (1 mg/ml) 1 MG/ML VIAL (09:46)
[2022-03-02 09:55] VITALS: BP 123/75; BP 92/67; PULSE 87; RESP 18; TEMP 36.3; O2SAT 100
--- NOTE | 2022-03-02 09:56 | OP.EGD_ITS ---
Patient Name: Li Singh Procedure Date: 03/02/2022 8:58 AM Date of : 1980 Age: 41 Procedure: Upper GI endoscopy Indications: Hematochezia Providers: Rao Alvarez DO Medicines: Monitored Anesthesia Care Patient Profile: This is a 41 year old female. Refer to note in patient chart for documentation of history and physical. Patient has symptoms of chronic abdominal cramping and acute right upper quadrant abdominal pain. Complications: No immediate complications. Procedure: Pre-Anesthesia Assessment: - Prior to the procedure, a History and Physical was performed, and patient medications and allergies were reviewed. The risks and benefits of the procedure and the sedation options and risks were discussed with the patient. All questions were answered and informed consent was obtained. Patient identification and proposed procedure were verified by the physician in the pre-procedure area. Mental Status Examination: alert and oriented. Airway Examination: normal oropharyngeal airway and neck mobility. Respiratory Examination: clear to auscultation. CV Examination: normal. Prophylactic Antibiotics: The patient does not require prophylactic antibiotics. Prior Anticoagulants: The patient has taken no previous anticoagulant or antiplatelet agents. After reviewing the risks and benefits, the patient was deemed in satisfactory condition to undergo the procedure. The anesthesia plan was to use monitored anesthesia care (MAC). Immediately prior to administration of medications, the patient was re-assessed for adequacy to receive sedatives. The heart rate, respiratory rate, oxygen saturations, blood pressure, adequacy of pulmonary ventilation, and response to care were monitored throughout the procedure. The physical status of the patient was re-assessed after the procedure. After obtaining informed consent, the endoscope was passed under direct vision. Throughout the procedure, the patient's blood pressure, pulse, and oxygen saturations were monitored continuously. The pediatric colonoscope was introduced through the mouth, and advanced to the second part of duodenum. The upper GI endoscopy was accomplished without difficulty. The patient tolerated the procedure well. Scope In: 9:12:01 AM Scope Out: 9:15:49 AM Total Procedure Duration Time 0 hours 3 minutes 48 seconds Findings: The Z-line was irregular and was found 40 cm from the incisors. Biopsies were taken with a cold forceps for histology. Verification of patient identification for the specimen was done. Estimated blood loss was minimal. A medium-sized hiatal hernia was present. Patchy mildly erythematous mucosa without bleeding was found in the gastric body. Biopsies were taken with a cold forceps for histology. Verification of patient identification for the specimen was done. Estimated blood loss was minimal. The second portion of the duodenum was normal. Biopsies were taken with a cold forceps for histology. Verification of patient identification for the specimen was done. Estimated blood loss was minimal. Impression: - Z-line irregular, 40 cm from the incisors. Biopsied. - Medium-sized hiatal hernia. - Erythematous mucosa in the gastric body. Biopsied. - Normal second portion of the duodenum. Biopsied. Recommendation: - Discharge patient to home. - Resume previous diet. - Continue present medications. - Await pathology results. Procedure Code(s): --- Professional --- 26331, Esophagogastroduodenoscopy, flexible, transoral; with biopsy, single or multiple CPT copyright 2017 [employer]. All rights reserved. The codes documented in this report are preliminary and upon rug measurer review may be revised to meet current compliance requirements. Rao Alvarez DO 03/02/2022 9:55:47 AM This report has been signed electronically. Number of Addenda: 0 Note Initiated On: 03/02/2022 8:58 AM
--- NOTE | 2022-03-02 09:56 | OP.CCLET_ITS ---
03/02/2022 Ben Loza Re : Upper GI endoscopy procedure for Li Singh Dear Dr. Loza This procedure was performed on Wednesday, March 02, 2022. My impressions and recommendations are as follows: Impressions : - Z-line irregular, 40 cm from the incisors. Biopsied. - Medium-sized hiatal hernia. - Erythematous mucosa in the gastric body. Biopsied. - Normal second portion of the duodenum. Biopsied. Recommendations : - Discharge patient to home. - Resume previous diet. - Continue present medications. - Await pathology results. My findings are described in the full procedure note, which is enclosed. If I can be of further assistance, please feel free to contact me at . Sincerely, Rao Friend, 03/02/2022 9:55:47 AM This report has been signed electronically.
[2022-03-02 10:00] VITALS: BP 123/75; BP 98/57; PULSE 85; RESP 18; O2SAT 100
--- NOTE | 2022-03-02 10:03 | OP.COLON_ITS ---
Patient Name: Li Singh Procedure Date: 03/02/2022 9:16 AM Date of : 1980 Age: 41 Procedure: Colonoscopy Indications: Hematochezia Providers: Rao Alvarez DO Medicines: Monitored Anesthesia Care Patient Profile: This is a 41 year old female. Refer to note in patient chart for documentation of history and physical. Patient has symptoms of chronic abdominal cramping and acute right upper quadrant abdominal pain. Last Colonoscopy: none. The patient's first colonoscopy is today. Complications: No immediate complications. Procedure: Pre-Anesthesia Assessment: - Prior to the procedure, a History and Physical was performed, and patient medications and allergies were reviewed. The risks and benefits of the procedure and the sedation options and risks were discussed with the patient. All questions were answered and informed consent was obtained. Patient identification and proposed procedure were verified by the physician in the pre-procedure area. Mental Status Examination: alert and oriented. Airway Examination: normal oropharyngeal airway and neck mobility. Respiratory Examination: clear to auscultation. CV Examination: normal. Prophylactic Antibiotics: The patient does not require prophylactic antibiotics. Prior Anticoagulants: The patient has taken no previous anticoagulant or antiplatelet agents. After reviewing the risks and benefits, the patient was deemed in satisfactory condition to undergo the procedure. The anesthesia plan was to use monitored anesthesia care (MAC). Immediately prior to administration of medications, the patient was re-assessed for adequacy to receive sedatives. The heart rate, respiratory rate, oxygen saturations, blood pressure, adequacy of pulmonary ventilation, and response to care were monitored throughout the procedure. The physical status of the patient was re-assessed after the procedure. After I obtained informed consent, the scope was passed under direct vision. Throughout the procedure, the patient's blood pressure, pulse, and oxygen saturations were monitored continuously. The Colonoscope was introduced through the anus and advanced to the terminal ileum. The colonoscopy was performed without difficulty. The patient tolerated the procedure well. The quality of the bowel preparation was good. Scope In: 9:17:37 AM Scope Withdrawal Time 0 hours 25 minutes 15 seconds Scope Out: 9:49:02 AM Total Procedure Duration Time 0 hours 31 minutes 25 seconds Findings: The perianal and digital rectal examinations were normal. An ulcerated non-obstructing large mass was found in the rectum. The mass was non-circumferential. The mass measured three cm in length. In addition, its diameter measured five mm. Oozing was present. This was biopsied with a cold forceps for histology. Verification of patient identification for the specimen was done. Estimated blood loss was minimal. Area was successfully injected with 5 mL of a 1:10,000 solution of epinephrine for hemostasis. Coagulation for hemostasis using heater probe was successful. Estimated blood loss was minimal. Multiple small and large-mouthed diverticula were found in the sigmoid colon, descending colon and splenic flexure. Impression: - Rule out malignancy, tumor in the rectum. Biopsied. Injected. Treated with a heater probe. - Diverticulosis in the sigmoid colon, in the descending colon and at the splenic flexure. Recommendation: - Discharge patient to home. - Await pathology results. - Repeat colonoscopy for surveillance based on pathology results. - Refer to an oncologist in 1 day. - Continue present medications. Procedure Code(s): --- Professional --- 28940, Colonoscopy, flexible; with control of bleeding, any method CPT copyright 2017 [employer]. All rights reserved. The codes documented in this report are preliminary and upon mail sorting supervisor review may be revised to meet current compliance requirements. Rao Alvarez DO 03/02/2022 10:02:42 AM This report has been signed electronically. Number of Addenda: 0 Note Initiated On: 03/02/2022 9:16 AM
--- NOTE | 2022-03-02 10:04 | OP.CCLET_ITS ---
03/02/2022 Ben Loza Re : Colonoscopy procedure for Li Singh Dear Dr. Loza This procedure was performed on Wednesday, March 02, 2022. My impressions and recommendations are as follows: Impressions : - Rule out malignancy, tumor in the rectum. Biopsied. Injected. Treated with a heater probe. - Diverticulosis in the sigmoid colon, in the descending colon and at the splenic flexure. Recommendations : - Discharge patient to home. - Await pathology results. - Repeat colonoscopy for surveillance based on pathology results. - Refer to an oncologist in 1 day. - Continue present medications. My findings are described in the full procedure note, which is enclosed. If I can be of further assistance, please feel free to contact me at . Sincerely, Rao Friend, 03/02/2022 10:02:42 AM This report has been signed electronically.
[2022-03-02 10:05] VITALS: BP 123/75; BP 98/52; PULSE 74; RESP 18; O2SAT 100
[2022-03-02 10:10] VITALS: BP 123/75; BP 90/71; PULSE 82; RESP 18; TEMP 36.4; O2SAT 100
[2022-03-02 10:30] VITALS: BP 123/75
== END 2022-03-02 11:04 | disposition home or self-care (01) ==
LOC: EN 07:59 → AC 07:59
PROVIDERS: Anesthesiology; PCP Family Medicine; Referring Provider Family Medicine; Visit Provider Internal Medicine Gastroenterology
PROC: 0DJD8ZZ Inspection of Lower Intestinal Tract, Via Natural or Artificial Opening Endoscopic (ICD-10-PCS; CPT 45378; principal; 2022-03-02 08:55)
DX: K92.1 Melena (principal); Z87.891 Personal history of nicotine dependence; K57.30 Diverticulosis of large intestine without perforation or abscess without bleeding; D64.9 Anemia, unspecified; K44.9 Diaphragmatic hernia without obstruction or gangrene; K58.9 Irritable bowel syndrome, unspecified; K21.9 Gastro-esophageal reflux disease without esophagitis
CPT/HCPCS: 45382; 43239; 84703; 88305; 88313; 88341; 88342; J7120; J2405; J3490

== ENCOUNTER → 2022-03-16 | Outpatient (CLI) | payer OTHER, SELFPAY | END | disposition home or self-care (01) | LOC: LABSPEC 15:49 | PROVIDERS: PCP Family Medicine; Referring Provider Family Medicine; Visit Provider Family Medicine | DX: L08.9 Local infection of the skin and subcutaneous tissue, unspecified (principal) | CPT/HCPCS: 87070; 87077; 87186; 87205 ==

== ENCOUNTER 2022-03-17 16:54 | Outpatient (CLI) | payer OTHER, SELFPAY ==
--- NOTE | 2022-03-17 16:54 | MRI_ITS ---
STUDY: MR PELVIS WITH T WITHOUT CONTRAST REASON FOR EXAM: Female, 41 years old. STAGING RECTAL CA TECHNIQUE: Standardized fat and water weighted pulse sequences were obtained in all 3 orthogonal planes, pre-and post contrast administration. IV 19CC Dotarem was administered for the contrast portion of the examination. COMPARISON: January 20, 2022 CT. FINDINGS: Asymmetric irregular solid-appearing predominantly semicircular rectal wall thickening, sparing the right 9:00 position inferiorly with possible circumferential component at the superior margin, greatest in thickness at the left 3:00 position, compatible with carcinoma. The masslike wall thickening begins at the anorectal angle and extends 5.5 cm cephalad, approximately to the level of the posterior vaginal fornix, likely just above the peritoneal reflection. Anal evaluation is limited by confluence of soft tissues without definitive involvement of internal sphincter, intersphincteric space, or external sphincter. Muscularis propria appears intact along the length of the rectal mass without evidence of extension into the mesorectal fat. No evidence of extramural vascular invasion. Scattered distal colonic diverticulosis without evidence of diverticulitis in the study field of view. Unremarkable bladder. Lobulated fibroid uterus with hypoenhancing posterior fundal exophytic 1.5 cm subserosal fibroid and mildly enhancing anterior body 2.3 cm fibroid. Ovaries are symmetric and normal in size with small follicles up to 6 mm on the left. No significant pelvic free fluid. Oval 9 x 13 mm and 6 x 7 mm oval circumscribed right obturator lymph nodes are noted. The larger lymph node is slightly heterogeneous with indistinct margins on axial imaging. The smaller lymph node is circumscribed and homogeneous. No acute osseous finding. MRI/Pelvis W/WO Contrast IMPRESSION: Findings concerning for low rectal carcinoma in the appropriate setting as described above with intact muscularis propria compatible with T1 or T2 lesion. No visualized anal sphincter involvement. Right obturator lymph nodes 9 and 6 mm in short axis as described above, with 9 mm lymph node being suspicious by size criteria. Sigmoid diverticulosis without evidence of diverticulitis. Fibroid uterus. Unremarkable symmetric ovaries with small follicles. Electronically Signed: Butch Joaquin MD at 5:06 EDT ,
== END 2022-03-17 23:59 | disposition home or self-care (01) ==
PROVIDERS: PCP Family Medicine; Visit Provider Internal Medicine Medical Oncology
DX: C20 Malignant neoplasm of rectum (principal)
CPT/HCPCS: 72197; A9575

== ENCOUNTER → 2022-03-21 | Outpatient (CLI) | payer OTHER, SELFPAY ==
--- NOTE | 2022-03-21 16:48 | CT_ITS ---
EXAM: CT CHEST AND ABDOMEN WITH INTRAVENOUS CONTRAST CLINICAL INDICATION: STAGING RECTAL CANCER TECHNIQUE: Helically acquired images were obtained of the chest and abdomen with intravenous contrast. This CT exam was performed using one or more of the following dose reduction techniques: automated exposure control, adjustment of the mA and/or kV according to patient size, and/or use of iterative reconstruction technique. This report was created using clickTRUE report generation technology. CONTRAST: 100 cc of Isovue-370 IV. Oral contrast. RADIATION DOSE: CTDIvol = 17.17 mGy, DLP = 1077.97 mGy-cm. COMPARISON: None. FINDINGS: CHEST: LUNGS AND PLEURAL SPACES: Unremarkable. No mass. No consolidation or edema. No pleural effusion or thickening. No pneumothorax. HEART: Unremarkable. Heart size is normal. No pericardial effusion. No significant coronary artery calcifications. MEDIASTINUM: Unremarkable. No mediastinal or hilar adenopathy. Esophagus is unremarkable. No hiatal hernia. THYROID: Unremarkable. No thyroid lesions. ABDOMEN: LIVER: Small cyst measuring 1 cm left lobe of the liver. GALLBLADDER AND BILE DUCTS: Unremarkable. No calcified gallstones. No gallbladder distention or wall edema. No intra- or extrahepatic biliary ductal dilation. PANCREAS: Unremarkable. No focal cystic or solid mass. SPLEEN: Small splenule anterior to the spleen. ADRENALS: Unremarkable. No nodules. KIDNEYS AND URETERS: Unremarkable. Normal renal size and position. No hydronephrosis. STOMACH AND BOWEL: Unremarkable. No stomach or bowel distention. No focal inflammatory change. INTRAPERITONEAL SPACE: Unremarkable. No ascites or other fluid collection. No free air. CHEST and ABDOMEN: BONES/JOINTS: Unremarkable. No suspicious lytic or blastic abnormality. SOFT TISSUES: Unremarkable. No discrete abdominal wall hernia. VASCULATURE: Unremarkable. Aorta is non-dilated. No aortic dissection. No obvious central pulmonary embolism although this study was not performed with the pulmonary embolism protocol. LYMPH NODES: Unremarkable. No enlarged lymph nodes. CT/CT Chest AND Abd W/ Contrast IMPRESSION: No signs of metastatic disease. Electronically Signed: Akbar Grover MD at 7:02 EDT ,
== END | disposition home or self-care (01) ==
LOC: CT 16:45
PROVIDERS: PCP Family Medicine; Referring Provider Internal Medicine Medical Oncology; Visit Provider Internal Medicine Medical Oncology
DX: C20 Malignant neoplasm of rectum (principal)
CPT/HCPCS: 71260; 74160; Q9967

== ENCOUNTER → 2022-03-24 | Outpatient (CLI) | payer OTHER, SELFPAY ==
[2022-03-24 13:58] LABS: NATERA MAILED SPECIMEN
== END | disposition home or self-care (01) ==
LOC: LAB 12:54
PROVIDERS: PCP Family Medicine; Visit Provider Internal Medicine Medical Oncology
DX: Z14.8 Genetic carrier of other disease (principal); Z80.1 Family history of malignant neoplasm of trachea, bronchus and lung
CPT/HCPCS: 36415

== ENCOUNTER → 2022-06-21 | Outpatient (CLI) | payer OTHER, SELFPAY | END | disposition home or self-care (01) | LOC: LABSPEC 16:24 | PROVIDERS: PCP Family Medicine; Visit Provider Nurse Practitioner Women's Health | DX: N89.8 Other specified noninflammatory disorders of vagina (principal) | CPT/HCPCS: 87070; 87205 ==

== ENCOUNTER 2022-06-30 16:55 | Outpatient (RCR) | payer OTHER, SELFPAY ==
--- NOTE | 2022-06-30 18:45 | HP.PTEVAL ---
Patient's Visit Information MONA UPTON is a 41 year old F referred to Physical Therapy by LARISSA Shi with a diagnosis of CERVICALAGIA ,MUSCLE CRAMPS. Date of Evaluation: 06/30/22 Physical Therapist: Molina Phan, PT, Cert MDT, [facility] - Visit Plan Frequency: 2x /Week Duration: 4 Weeks Plan: NO MODALITIES ACTIVE CANCER ON CHEMO. PT INTERVETIONS FOCUS ON MANUAL THERAPY (STM) ,FLEXABLITY AND POSTURAL EX'S - Subjective This 41 y/o female presents to physical therapy with cervicalgia and muscle cramps. Patient has recently diagnosed with rectal CA sine FEB ,initially did radiation then started chemo IV and chemo pills at [facility]. Plans to have surgery when chemo is finished. Patient has had cervical pain and CANCHOLA many years but since being on chemo treatments symptoms with CANCHOLA worsening. Patient develops CANCHOLA occiput region and temporal. Cervical pain cervical and UT which changes location. Aggravating chemo ,stress ,decrease activity . Alleviating factors rest. Denies dizziness ,IV treatments nausea . Denies tinnitus. Denies paresthesia/tingling. Difficulty falling asleep. . Patient condition affects QOL and ADLS's. VOCATION: [employer] unable to work. SOCIAL: single. - Pain Bilateral Neck Pain Intensity (Out of 10): 4 Pain Intensity Range: 10 - Objective POSTURE: mild forward posture. NUERO: denies paresthesia/tingling ,reflexes C5-6-7 2/3. PALPATION : tender UT/levator/OA. CERVICAL ROM: flexion WFL ,extension min loss ,lateral flexion min loss,rotation min loss. BUE AROM: WFL. MMT: grossly 4/5. UPPER CERVICAL SPINE: upper cervical spine mod tight - Special Tests C/S Radiculapathy - Left Upper limb tension test: Negative C/S Radiculapathy - Right Upper limb tension test: Negative C/S Radiculapathy - Left Spurlings: Negative C/S Radiculapathy - Right Spurlings: Negative C/S Radiculapathy - Left Cervical distraction: Negative C/S Radiculapathy - Right Cervical distraction: Negative C/S Radiculapathy - Left Relief test: Negative Sharp Rcik: Negative Vertebral Artery Test: Negative Alar Ligament Test: Negative - Balance/Special Test Scores Oswestry Neck Score: 18 - Goals Goal 1:: Patient to be I with HEP Goal Time Frame: 4-6 Weeks Goal 2:: Patient to demonstrate 50% improvement with increase function and less CANCHOLA/cervical pain. Goal Time Frame: 4-6 Weeks Goal 3:: Patient improve cervical ROM for function of recovery to improve function Goal Time Frame: 4-6 Weeks Goal 4:: Patient to improve neck oswetry score by 5 points to improve QOL and function Goal Time Frame: 4-6 Weeks - Rehabilitation Potential Physical Therapy Diagnosis: This patient has cervical pain and CANCHOLA also has current has rectal cancer which patient on chemo therapy which is a contributing factors thus benefit from skilled PT Rehabilitation Potential: Good - Anticipated Interventions Patient/Client Instruction: Educate patient on: Condition, Plan of Care For the Purpose of:: To decrease pain, To increase ROM, To improve muscle performance and motor function, To improve ability to perform ADL's, To increase tolerance to activity/condition/position, To improve performance and independence with ADL's, To improve ability of physical actions for home/community/work/leisure, To improve health of tissue, To decrease soft tissue restriction, To increase flexibility/ROM Therapeutic Exercise to Include: Strength training, Postural training, Flexibilty training, Active ROM For the Purpose of:: To decrease pain, To increase ROM, To improve nutrient delivery to tissue, To increase oxygenation perfusion, To improve health of tissue, To decrease soft tissue restriction, To increase flexibility/ROM, To improve ability to perform tasks related to life management, Other Other: DECREASE CANCHOLA Thank you for the opportunity to evaluate your patient. For Medicare and Medicare HMO plans, please review the plan of care and approve it. It will need to be FAXED BACK to us at [phone] for Medicare purposes. For Medicare only, by signing this I certify the plan of care. Please let me know if there are questions or concerns regarding this plan of care. Physician Signature: Date:
--- NOTE | 2022-11-03 10:49 | HP.PT.NRP ---
MONA UPTON was seen in my office for initial evaluation on 06/30/22. The following Plan of Care was established for this patient: Initial Frequency: 2x /Week Initial Duration: 4 Weeks Patient/Client Instruction: Educate patient on: Condition, Plan of Care For the Purpose of:: To decrease pain, To increase ROM, To improve muscle performance and motor function, To improve ability to perform ADL's, To increase tolerance to activity/condition/position, To improve performance and independence with ADL's, To improve ability of physical actions for home/community/work/leisure, To improve health of tissue, To decrease soft tissue restriction, To increase flexibility/ROM Therapeutic Exercise to Include: Strength training, Postural training, Flexibilty training, Active ROM For the Purpose of:: To decrease pain, To increase ROM, To improve nutrient delivery to tissue, To increase oxygenation perfusion, To improve health of tissue, To decrease soft tissue restriction, To increase flexibility/ROM, To improve ability to perform tasks related to life management, Other Other: DECREASE CANCHOLA This patient was last seen in our office . Pertinent comments regarding their Physical therapy will appear below: Patient seen for PT evaluation only thus d/c At this point I will be discontinuing this patient from physical therapy. I would be happy to see this patient again in the future if found appropriate by the physician. Thank you! Molina Phan, PT, Cert MDT, OCS Balance/Gait/Functional tests - Balance/Special Test Scores Oswestry Neck Score: 18
== END 2022-06-30 19:00 | disposition home or self-care (01) ==
LOC: PT 16:55
PROVIDERS: PCP Family Medicine; Referring Provider Nurse Practitioner Family; Visit Provider Nurse Practitioner Family
DX: R25.2 Cramp and spasm (principal); M54.2 Cervicalgia
CPT/HCPCS: 97140; 97162

== ENCOUNTER → 2022-06-30 | Outpatient (CLI) | payer OTHER, SELFPAY ==
--- NOTE | 2022-06-30 12:26 | BI_ITS ---
MAMMOGRAPHY - BILATERAL SCREENING REASON FOR EXAM: Female, 41 years old. Routine annual screening examination. PERTINENT HISTORY: Non-contributory. TECHNIQUE: Digital bilateral breast josiah (3D mammographic acquisition) in the CC and MLO projections. 2-D mediolateral oblique (MLO) and craniocaudad (CC) views of both breasts were obtained. CAD: Full Field Digital Mammography with Computer Added Detection was performed. COMPARISON: None. Baseline examination. FINDINGS: Breast Composition: The breasts are heterogeneously dense, which may obscure small masses. There are no dominant masses or suspicious calcifications. No other significant abnormalities are identified. BI/SCRN MAMM (CAD)W/JOSIAH BILAT IMPRESSION: Negative screening mammogram. Yearly followup mammogram recommended. (A) ASSESSMENT CATEGORY: BIRADS Category 1: Negative. A letter regarding these results will be sent to the patient by the facility within 30 days. Approximately 10% of breast cancers are not detected by mammography. A normal mammogram should not delay biopsy of a clinically suspicious abnormality. [id number] Electronically Signed: Malcolm Sargent MD at 13:39 EST ,
== END | disposition home or self-care (01) ==
LOC: OPBI 12:24
PROVIDERS: PCP Family Medicine; Visit Provider Nurse Practitioner Women's Health
DX: Z12.31 Encounter for screening mammogram for malignant neoplasm of breast (principal)
CPT/HCPCS: 77063; 77067

== ENCOUNTER → 2022-10-26 | Outpatient (CLI) | payer OTHER, SELFPAY ==
--- NOTE | 2022-10-26 11:19 | WOUNDNOTE ---
stoma photo: right lower abdomen
--- NOTE | 2022-10-26 11:20 | WOUNDNOTE ---
Pt was referred to this nurse for ostomy evaluation by stoma nurses at [facility] and Luz Cosme NP. Pt had a low anterior resection with a diverting loop ileostomy on 10/07/22 at [facility]. Surgery performed by Faisal Cooper, colorectal surgeon. the stomal marlin was removed last week at the ostomy clinic at [facility]. patient has been having issues with leakage. states she has needed to change the bag nearly every day since being home. sometimes multiple times a day. patient is currently using a deep convex Jamel appliance #[id number]. states she had been using a belt, but it kept rolling up. removed the appliance. the stool was starting to leak out the medial and lateral sides of the appliance. patient states that this is typically where the leaks occur. stoma measures approx 1 and sits just at skin level. stoma is slightly retracted when sitting up. stoma is in a skin fold as well. there is an area of red, denuded skin to the peristomal area that measures approx 3cm x 8cm. would agree with a deep convex appliance since stoma is just at skin level. cleansed skin with warm water. gently pat dry. applied stoma powder followed by skin prep. did two layers of this as a crusting method to assist in protecting the skin. placed a small wedge of a barrier ring in the medial and lateral edges of the stoma along the skin crease. placed the deep convex Jamel appliance. had patient place hand over appliance to assist in sealing the barrier. plan to monitor skin. will have [place] samples sent to patient as well. could possibly try a 1 piece flat appliance. patient may need the flexibility of a flat appliance to seal closer to the skin and stoma. patient tolerated well. all questions answered. patient aware to call if more assistance is needed. pt states her is off on Mondays so may try to schedule next visit on a Monday so he can be present. pt very appreciative of care. denies further needs at this time.
== END | disposition home or self-care (01) ==
LOC: ET 10:29
PROVIDERS: PCP Family Medicine; Referring Provider Nurse Practitioner Family; Visit Provider Nurse Practitioner Family
DX: Z71.89 Other specified counseling (principal)
CPT/HCPCS: 99211; G0463

== ENCOUNTER → 2022-12-30 | Outpatient (CLI) | payer OTHER, SELFPAY ==
--- NOTE | 2022-12-30 10:00 | RAD_ITS ---
STUDY: BARIUM ENEMA. REASON FOR EXAM: Female, 42 years old. Malignant neoplasm of rectum FLUOROSCOPY TIME (if supplied): ( 35 seconds ) minutes/seconds. 30.64 mGy. 8 images were obtained. TECHNIQUE: A scout sniper image was obtained. The gas pattern is unremarkable. Following this, contrast was inserted through the rectum. The entire colon was opacified. COMPARISON: None. FINDINGS: Scattered sigmoid diverticula. No evidence of antegrade or retrograde obstruction to the flow of contrast. The terminal ileum is unremarkable. RAD/Barium Enema No Air Cont IMPRESSION: Scattered sigmoid diverticula. Electronically Signed: Malcolm Sargent MD at 12:21 EDT ,
== END | disposition home or self-care (01) ==
PROVIDERS: PCP Family Medicine
DX: C20 Malignant neoplasm of rectum (principal)
CPT/HCPCS: 74270

== ENCOUNTER → 2023-04-11 | Outpatient (CLI) | payer OTHER, SELFPAY ==
--- NOTE | 2023-04-11 12:54 | CT_ITS ---
STUDY: CT ABDOMEN AND PELVIS WITH CONTRAST REASON FOR EXAM: Female, 42 years old. Known rectal carcinoma RADIATION DOSAGE (If Supplied By Facility): CTDIvol = ( 15.06 ) mGy, DLP = ( 887.22 ) mGycm TECHNIQUE: Transaxial images were obtained from the dome of the diaphragm to the symphysis pubis with oral contrast. Oral and amp; IV Readi-CAT and amp; 100mL Isovue-370 was administered. Sagittal and coronal images were reconstructed. Individualized dose optimization techniques were used for this CT. COMPARISON: 01/12/2022 FINDINGS: The visualized lung bases are unremarkable. The visualized portions of the heart are within normal limits. There is unremarkable aside from a 2 cm cyst in the right hepatic lobe. Normal gallbladder and extrahepatic biliary system. Normal spleen. There is a 1 cm accessory spleen. Normal pancreas. Normal bilateral adrenal glands. Normal right kidney. Normal left kidney. Normal visualized stomach. Normal small intestine. Normal colon. There is non-visualization of the appendix. Normal abdominal aorta. Normal inferior vena cava. Normal retroperitoneum. Normal urinary bladder. Normal-appearing uterus. No suspicious cystic mass There is induration of the perirectal and lower pelvic fat with associated fluid. This was not seen on a previous CT. I am unsure if this is acute and possibly related to recurrence or may be post therapeutic, specifically if the patient has been treated with radiation. No suspicious pelvic or inguinal lymph nodes are noted. Normal abdominal wall. No suspicious lytic or blastic bony lesion. Degenerative changes noted at L5/S1. CT/Abdomen/Pelvis WITH Contrast IMPRESSION: There is free fluid in the dependent pelvis along with induration of the lower pelvic fat and perirectal fat. I''m unsure if this represents an acute inflammatory process, or local recurrence or this is related to therapy, specifically due to radiation. Please correlate with clinical findings. There is no suspicious enhancing lesion or adenopathy. No suspicious solid organ abnormality, simple hepatic cyst, no specific follow-up needed. No free intraperitoneal fluid, air, or suspicious adenopathy Degenerative bony changes at L5/S1 without suspicious erosive or sclerotic lesion Electronically Signed: Easton Lan MD at 17:18 EDT ,
== END | disposition home or self-care (01) ==
LOC: CT 12:53
PROVIDERS: PCP Family Medicine; Referring Provider Internal Medicine Medical Oncology; Visit Provider Internal Medicine Medical Oncology
DX: C20 Malignant neoplasm of rectum (principal)
CPT/HCPCS: 74177; Q9967; A4216

== ENCOUNTER 2023-05-23 13:07 | Day surgery (SDC) | payer OTHER, SELFPAY ==
--- NOTE | 2023-05-23 | COLBX_PTH ---
PATIENT: MONA UPTON LOC: EN U#:[id number] AGE/SX: 42/F ROOM: RE05/23/[address]: Dr. Rao Alvarez DO : 1980 BED: DIS: 05/23/2023 SPEC #: [id number] RECD: 05/23/23 16:24 STATUS: SHERRELL SULLIVAN #: [id number] DARRELL: 05/23/23 00:[address]: Rao Alvarez DEPT: SURGICAL PATHOLOGY RECD BY: Alphonse Mahan ENTERED: 05/24/23 07:40 SP TYPE: COLON BX TRINH DR: Dr. Ben Loza DO Tissues: A - Ileum, NOS B - Anus, NOS Procedures: Surgery Specimen Level IV HEADER OPERATION: Colonoscopy with biopsies PRE-OP DIAGNOSIS: Rectal adenocarcinoma, anemia, positive occult blood stool test TISSUE SUBMITTED: A - Terminal ileum biopsy, B - Anal biopsy MICROSCOPIC DIAGNOSIS A. Terminal ileum, biopsy: No pathologic change. B. Anus, biopsy: Focal hyperplastic change. AM:sherice 05/25/2023 MICROSCOPIC DESCRIPTION Slides are reviewed. GROSS DESCRIPTION A - Received in fixative is one container labeled with the patient's name and designated terminal ileum. The specimen consists of two irregular fragments of light avalos soft tissue that in aggregate measure 0.6 x 0.5 x 0.1 cm. The specimen is totally submitted in one cassette. B - Received in fixative is one container labeled with the patient's name and designated anal biopsy. The specimen consists of two irregular fragments of light avalos soft tissue that in aggregate measure 0.6 x 0.3 x 0.1 cm. The specimen is totally submitted in one cassette. / AM:sherice 05/24/2023 TC:5 [facility]: [id number] x2
[2023-05-23] MEDS: Lactated Ringers 1,000 ML 15 ML IV (13:36)
[2023-05-23 13:38] VITALS: BP 120/70; PULSE 84; RESP 18; TEMP 36.7; O2SAT 100
[2023-05-23 13:38] LABS: Internal QC Validated? YES +Cl - CLEAR BKGD; Pregnancy, Urine Negative Negative; Record Kit Lot#,Urine Preg 667200
--- NOTE | 2023-05-23 14:18 | PCM.HP.BLA ---
History and Physical Date of Admission: 05/23/23 42 y.o.woman presented with rectal bleed, had Colonoscopy on 03/02/2022, found to have a Rectal mass 8cm from anal verge. Biopsy showed well differentiated adenocarcinoma. She was referred for further management. CEA was 1 on 03/10/2022. CT c/a on 03/21/2022 showed no evidence of metastatic disease. MRI pelvis on 03/17/2022 showed T1-2 low lying rectal lesion, N1. She was seen by Surgery at [facility] and Radiation Oncology. Total Rylan-adjuvant chemotherapy and Radiation therapy was suggested. Completed Xeloda with Radiation on 04/11/2022- 05/18/2022. Began XELOX on 06/14/22. Cycle 2 due to be given on 07/05/2022 held d/t grade 2 neutropenia, administered on 07/12/22. Completed cycle 4 on 08/30/22. Had Laparoscopic LAR with Loop Ileostomy on 10/07/2022 at [facility]. Pathology ypT0 N0. She is on observation. CT a/p on 04/11/2023 reviewed, with surgical changes in pelvis, no enhancing lesion. She had stool for occult blood done. Comes for follow up, feels well. PFSH Medical History Anemia Asthma Back pain Cancer Diarrhea due to drug Encounter for education Encounter for ostomy care education Former smoker Frequent headaches Gastric reflux GERD (gastroesophageal reflux disease) Headache Hemorrhoid History of edema History of GI bleed History of pain when walking Hypokalemia Ingrown right big toenail Low back pain Muscle cramping Ostomy nurse consultation Paronychia of great toe, right Ringworm RUQ pain Seasonal allergies Severe headache Staph infection Syncope Vitamin deficiency Wears contact lenses Wears glasses Surgical History History of neck surgery Family History Father Alcoholism Anxiety Depression HypertensionBrother Alcoholism DepressionMother Asthma Anxiety Depression Cancer lungGrandfather Diabetes Alcoholism Cancer kidney HypertensionGrandmother CancerAunt Thyroid disorder Cancer ovarian Grandfather Colon cancer Social History Smoking Status: Former smoker alcohol intake: current alcohol intake frequency: holidays/special occasions only details: social substance use type: does not use caffeine: Yes what type of physical activity do you participate in: none and walking seatbelt use: always do you feel safe at home: Yes additional social history: Steven Nieto Patient works at [employer] Intake Vital Signs 04/18/2314:35 05/02/2313:24 Height 5 ft 6 in 5 ft 6 in Weight: 86.636 kg BMI 30.8 BP 108/67 Blood Pressure Location Lt brachial Position Sitting Respiration 18 Pulse 68 Pulse Source Monitor Temp 98.6 F Temperature Source Temporal Artery Pulse Oximetry (%) 99 Oxygen Delivery Method room air Intake Is patient in pain?: No Allergies No Known Allergies Allergy (Verified 05/02/23 13:26) Medications acetaminophen 325 mg tablet (Tylenol) 325 mg PO ONCE PRN 06/16/22 [History Confirmed 05/02/23] ibuprofen 200 mg tablet 200 mg PO Q6H PRN 11/09/22 [History Confirmed 05/02/23] docusate sodium 100 mg capsule (Stool Softener) 100 mg PO BID PRN 03/07/23 [History Confirmed 05/02/23] loperamide 2 mg capsule (Imodium A-D) 2 mg PO Q6H PRN 04/18/23 [History Confirmed 05/02/23] Microbiology 04/19/23 05:30 Stool Stool Occult Blood (JULIETA) - Final Occult Blood Positive Laboratory Tests 08/02/22 08/23/22 03/07/23 08:05 08:05 14:00 WBC 2.4 L 2.2 L 3.5 L Hgb 11.4 L 11.4 L 10.9 L Hct 32.3 L 31.8 L 32.6 L Plt Count 217 202 216 Absolute Neuts (auto) 1.5 L 1.2 L 1.9 L Sodium 141 Potassium 3.7 Chloride 108 H Carbon Dioxide 25.0 BUN 16 Creatinine 0.73 Glucose 109 H Calcium 9.3 Phosphorus 4.1 Magnesium 1.9 Total Bilirubin 0.60 AST 40 H ALT 55 Alkaline Phosphatase 49 Total Protein 6.5 Albumin 3.6 Globulin 2.9 05/02/23 12:51 WBC 4.9 Hgb 11.4 L Hct 34.6 L Plt Count 274 Absolute Neuts (auto) Sodium Potassium Chloride Carbon Dioxide BUN Creatinine Glucose Calcium Phosphorus Magnesium Total Bilirubin AST ALT Alkaline Phosphatase Total Protein Albumin Globulin Exam Physical Exam Const alert, oriented x3 and no apparent distress Coding Level of Care Code Off vis,est,level 4 Exam Problem Focused Diagnoses Rectal adenocarcinoma C20 Anemia, unspecified type D64.9 Anemia type: unspecified type Positive occult stool blood test R19.5 Assessment and Plan Assessment and Plan (1) Rectal adenocarcinoma: Status: Chronic Comment: Rectal cancer, T1/2 with obturator node nodes enlarged-locally advanced. CEA 1 on 03/10/2022. Clinically stage IIIA(cT2 cN1 M0) CT c/a on 03/21/2022 show no evidence of metastatic disease. Started neoadjuvant Radiation and Xeloda on 04/11/2022. Finished Radiation and Xeloda on 05/18/2022. Began XELOX on 06/14/22. Cycle 4 delayed by one week d/t neutropenia, given on 08/30/22. Had Laparoscopic LAR with diverting Ileostomy on 10/07/2022. Pathology ypT0 N0. On observation. CT a/p on 04/11/2023 reviewed, with inflammatory changes in pelvis, no enhancing lesion. Discussed observation again. Has blood in the stool. Plan: To continue observation Obtain CT a/p and CEA in 6 months. F/u with GI for Colonoscopy. (2) Anemia: Status: Acute Qualifiers: Anemia type: unspecified type Qualified Code(s): D64.9 - Anemia, unspecified Comment: Stool for occult was positive on 03/08/2023. Hgb is trending upwards. Plan: To continue Oral Iron pills. (3) Positive occult stool blood test: Status: Acute Plan: To proceed with GI follow up for colonoscopy. I have examined the patient and the H&P has been reviewed. There are no clinical changes since date of exam.
[2023-05-23 14:45] VITALS: BP 120/70; BP 94/56; PULSE 66; RESP 16; TEMP 36.3; O2SAT 99
--- NOTE | 2023-05-23 14:48 | OP.COLON_ITS ---
Patient Name: Li Singh Procedure Date: 05/23/2023 2:09 PM Date of : 1980 Age: 42 Procedure: Colonoscopy Indications: Follow-up of rectal cancer Providers: Rao Alvarez DO Medicines: Monitored Anesthesia Care Patient Profile: This is a 42 year old female. Refer to note in patient chart for documentation of history and physical. Last Colonoscopy: within the past 3 years. Complications: No immediate complications. Procedure: Pre-Anesthesia Assessment: - Prior to the procedure, a History and Physical was performed, and patient medications and allergies were reviewed. The patient is competent. The risks and benefits of the procedure and the sedation options and risks were discussed with the patient. All questions were answered and informed consent was obtained. Patient identification and proposed procedure were verified by the physician in the pre-procedure area. Mental Status Examination: alert and oriented. Airway Examination: normal oropharyngeal airway and neck mobility. Respiratory Examination: clear to auscultation. CV Examination: normal. Prophylactic Antibiotics: The patient does not require prophylactic antibiotics. Prior Anticoagulants: The patient has taken no anticoagulant or antiplatelet agents. ASA Grade Assessment: II - A patient with mild systemic disease. After reviewing the risks and benefits, the patient was deemed in satisfactory condition to undergo the procedure. The anesthesia plan was to use monitored anesthesia care (MAC). Immediately prior to administration of medications, the patient was re-assessed for adequacy to receive sedatives. The heart rate, respiratory rate, oxygen saturations, blood pressure, adequacy of pulmonary ventilation, and response to care were monitored throughout the procedure. The physical status of the patient was re-assessed after the procedure. After I obtained informed consent, the scope was passed under direct vision. Throughout the procedure, the patient's blood pressure, pulse, and oxygen saturations were monitored continuously. The Colonoscope was introduced through the anus and advanced to the cecum, identified by appendiceal orifice and ileocecal valve. The colonoscopy was performed without difficulty. The patient tolerated the procedure well. The quality of the bowel preparation was good. The terminal ileum, ileocecal valve, appendiceal orifice, and rectum were photographed. Scope In: 2:23:32 PM Scope Withdrawal Time 0 hours 10 minutes 52 seconds Scope Out: 2:36:27 PM Total Procedure Duration Time 0 hours 12 minutes 55 seconds Findings: The perianal and digital rectal examinations were normal. There was evidence of a prior surgical anastomosis at the anus and in the rectum. This was patent and was characterized by congestion, edema, erosion and erythema. Biopsies were taken with a cold forceps for histology. Verification of patient identification for the specimen was done. Estimated blood loss was minimal. Coagulation for tissue destruction using argon plasma at 0.3 liters/minute and 20 obando was successful. Estimated blood loss was minimal. The exam was otherwise without abnormality on direct and retroflexion views. Localized mild inflammation was found in the terminal ileum. Biopsies were taken with a cold forceps for histology. Verification of patient identification for the specimen was done. Estimated blood loss was minimal. Impression: - Patent surgical anastomosis, characterized by congestion, edema, erosion and erythema. Biopsied. Treated with argon plasma coagulation (APC). - The examination was otherwise normal on direct and retroflexion views. - Mild inflammation was found in the ileum secondary to ileitis. Biopsied. Recommendation: - Discharge patient to home. - Resume previous diet. - Continue present medications. - Await pathology results. - Repeat colonoscopy in 1 year for surveillance. Procedure Code(s): --- Professional --- 19368, Colonoscopy, flexible; with ablation of tumor(s), polyp(s), or other lesion(s) (includes pre- and post-dilation and guide wire passage, when performed) 51643, 59, Colonoscopy, flexible; with biopsy, single or multiple CPT copyright 2021 [employer]. All rights reserved. The codes documented in this report are preliminary and upon linotype machinist review may be revised to meet current compliance requirements. Rao Alvarez DO 05/23/2023 2:48:27 PM This report has been signed electronically. Number of Addenda: 0 Note Initiated On: 05/23/2023 2:09 PM
--- NOTE | 2023-05-23 14:49 | OP.CCLET_ITS ---
05/23/2023 Ben Loza Re : Colonoscopy procedure for Li Singh Dear Dr. Loza This procedure was performed on Tuesday, May 23, 2023. My impressions and recommendations are as follows: Impressions : - Patent surgical anastomosis, characterized by congestion, edema, erosion and erythema. Biopsied. Treated with argon plasma coagulation (APC). - The examination was otherwise normal on direct and retroflexion views. - Mild inflammation was found in the ileum secondary to ileitis. Biopsied. Recommendations : - Discharge patient to home. - Resume previous diet. - Continue present medications. - Await pathology results. - Repeat colonoscopy in 1 year for surveillance. My findings are described in the full procedure note, which is enclosed. If I can be of further assistance, please feel free to contact me at . Sincerely, Rao Alvarez, 05/23/2023 2:48:27 PM This report has been signed electronically.
[2023-05-23 14:50] VITALS: BP 120/70; BP 96/57; PULSE 66; RESP 16; O2SAT 99
[2023-05-23 14:55] VITALS: BP 120/70; BP 97/54; PULSE 63; RESP 16; O2SAT 99
[2023-05-23 15:00] VITALS: BP 120/70; BP 96/59; PULSE 85; RESP 16; TEMP 36.3; O2SAT 100
[2023-05-23 15:15] VITALS: BP 120/70
== END 2023-05-23 15:21 | disposition home or self-care (01) ==
LOC: EN 13:08 → AC 13:09
PROVIDERS: Anesthesiology; PCP Family Medicine; Referring Provider Family Medicine; Visit Provider Internal Medicine Gastroenterology
PROC: 0DJD8ZZ Inspection of Lower Intestinal Tract, Via Natural or Artificial Opening Endoscopic (ICD-10-PCS; CPT 45378; principal; 2023-05-23 14:10)
DX: C20 Malignant neoplasm of rectum (principal); Z87.891 Personal history of nicotine dependence; Z80.0 Family history of malignant neoplasm of digestive organs; D64.9 Anemia, unspecified; R19.5 Other fecal abnormalities
CPT/HCPCS: 45380; 45388; 81025; 88305; J7120; J2405

== ENCOUNTER 2023-07-10 08:01 | Emergency (ER) | payer OTHER, SELFPAY ==
[2023-07-10 08:02] VITALS: BP 136/89; PULSE 116; RESP 20; TEMP 37.7; O2SAT 99; BMI 30.4
--- NOTE | 2023-07-10 08:29 | EX.ED.DYSGE1 ---
HPI History of Present Illness Chief Complaint: General Illness Detail of Chief Complaint: Not feeling well Informant: patient Narrative Narrative: Patient presents to the emergency department complaint not feeling well. She started with cold symptoms 4 days ago. She and her both tested positive for COVID-19 3 days ago. Patient continues to complain of bodyaches and generalized weakness as well as a sore throat. Cough mostly nonproductive. She denies any significant shortness of breath. Patient with history of rectal cancer currently in remission. [facility] Medical History Anemia Asthma Back pain Cancer Diarrhea due to drug Encounter for education Encounter for ostomy care education Former smoker Frequent headaches Gastric reflux GERD (gastroesophageal reflux disease) Headache Hemorrhoid History of edema History of GI bleed History of pain when walking History of rectal cancer History of steroid therapy Hypokalemia Ingrown right big toenail Low back pain Muscle cramping Ostomy nurse consultation Paronychia of great toe, right Ringworm RUQ pain Seasonal allergies Severe headache Staph infection Syncope Vitamin deficiency Wears contact lenses Wears glasses Home Medications acetaminophen 325 mg tablet (Tylenol) 325 mg PO ONCE PRN pain 06/16/22 [History Last Taken Unknown] ibuprofen 200 mg tablet 200 mg PO Q6H PRN pain 11/09/22 [History Last Taken Unknown] docusate sodium 100 mg capsule (Stool Softener) 100 mg PO BID PRN STOOL SOFTENER 03/07/23 [History Last Taken Unknown] loperamide 2 mg capsule (Imodium A-D) 2 mg PO Q6H PRN loose stool 04/18/23 [History Last Taken Unknown] cholecalciferol (vitamin D3) 25 mcg (1,000 unit) capsule (Vitamin D3) 25 mcg PO DAILY 05/16/23 [History Last Taken Unknown] ferrous sulfate 325 mg (65 mg iron) tablet,delayed release 325 mg PO DAILY 05/16/23 [History Last Taken 05/10/23] naproxen 500 mg tablet 500 mg PO BID #14 tabs 07/10/23 [Rx Last Taken Unknown] nirmatrelvir 300 mg (150 mg x2)-ritonavir 100 mg tablet,dose pack (Paxlovid) See Rx Instructions PO .COMPLEX #30 tabs 07/10/23 [Rx Last Taken Unknown] ondansetron 4 mg disintegrating tablet 4 mg PO Q8H PRN PRN Nausea #10 tabs 07/10/23 [Rx Last Taken Unknown] Allergy/AdvReac Type Severity Reaction Status Date / Time No Known Allergies Allergy Verified 06/16/23 13:01 Family History Father Alcoholism Anxiety Depression Hypertension Brother Alcoholism Depression Mother Asthma Anxiety Depression Cancer lung Grandfather Diabetes Alcoholism Cancer kidney Hypertension Grandmother Cancer Aunt Thyroid disorder Cancer ovarian Grandfather Colon cancer Surgical History History of esophagogastroduodenoscopy (EGD) History of ileostomy History of neck surgery History of reversal of ileostomy Hx of surgical procedure Social History Smoking Status: Former smoker alcohol intake: current alcohol intake frequency: holidays/special occasions only details: social substance use type: does not use caffeine: Yes what type of physical activity do you participate in: none and walking seatbelt use: always do you feel safe at home: Yes additional social history: Steven Nieto Patient works at [employer] ROS ED Review of Systems ROS Unobtainable: other Constitutional Constitutional ED: Reports chills, fever(s), lethargy and subjective; Denies sweats or weight loss Eyes Eyes: Denies blurry vision, change in vision or diplopia ENT ENT ED: Denies rhinorrhea or sore throat Cardiovascular Cardiovascular: Denies chest pain, orthopnea or racing heartbeat Respiratory/Chest Respiratory/Chest: Reports cough; Denies dyspnea, dyspnea on exertion, orthopnea or sputum Gastrointestinal Gastrointestinal: Denies abdominal pain, diarrhea, nausea or vomiting Genitourinary Genitourinary ED: Denies dysuria, hematuria or urinary frequency Musculoskeletal Musculoskeletal: Denies arthralgias, back pain, myalgias or neck pain Integumentary Denies abscess, Abrasions or rash Neurologic Neurologic: Denies headache(s) or weakness Psychiatric Psychiatric: Denies anxiety, depression or suicidal thoughts Endocrine Endocrinology: Denies polydipsia, polyphagia or polyuria Hematologic/Lymphatic Hematologic/Lymphatic: Denies easy bleeding, easy bruising or lymphadenopathy Allergic/Immunologic Allergic/Immunologic ED: Denies mouth swelling, tongue swelling or urticaria EXAM Physical Exam Const Vital Signs: 07/10/23 08:02 07/10/23 08:38 Temperature 99.8 F H Temperature Source Temporal Pulse Rate 116 H Respiratory Rate 20 H Respiratory Effort Normal Non-Labored Respiratory Pattern Normal Blood Pressure 136/89 H Blood Pressure Mean 104 Pulse Ox 99 Oxygen Delivery Method Room Air Positive well nourished and well developed General Appearance ED: well developed and NAD HEENT Reports TM's clear and moist mucous membranes normocephalic and atraumatic; Negative for trauma or tenderness Tympanic Membrane ED: Yes TM's clear Eyes PERRL and EOMs intact bilaterally General Eye ED: Negative for pale conjunctiva or scleral icterus Neck no lymphadenopathy, supple and no JVD General: Negative for tenderness Chest Wall inspection of chest normal and palpation of chest normal Chest: Negative for tenderness Resp normal respiratory effort and clear to auscultation bilaterally Effort and Inspection: Negative for respiratory distress or pain with movement Auscultation: Negative for rhonchi, wheezes or diminished lung sounds Cardio regular rate, regular rhythm, S1 normal heart sound, S2 normal heart sound and no murmurs Rate: tachycardic Peripheral Pulses: pulses 2+ throughout GI normal to inspection, nondistended, normoactive bowel sounds, soft to palpation, non-tender, non-distended and no masses Back/Spine no CVA tenderness and no thoracic nor lumbar tenderness Extremity normal to inspection General Extremety ED: Negative for edema General Extremity: Negative for edema Neuro oriented x3, CN's II-XII intact bilaterally, no sensory deficits noted and gait normal Sensorium / Orientation: awake, alert, oriented to person, oriented to place and oriented to time Motor Exam: strength 5/5 throughout and strength abnormal Psych mental status grossly normal Skin no rashes or lesions noted and no wounds MDM MDM MDM Narrative Medical decision making narrative: Patient presents with URI symptoms and tested positive for COVID-19. Clinically she looks well. She has a mild tachycardia with low-grade temperature. Oxygen levels normal. No respiratory difficulty. She will be treated with Toradol. We had discussion about oral treatment with Paxlovid and she is within the 5-day window for starting therapy. She would like to go forward with the Paxlovid. Patient advised to push fluids. I will write her prescription for Zofran as well as naproxen and Paxlovid. She is advised to follow-up with her primary care physician within next 5 to 7 days. She is to return if increasing shortness of breath or condition should worsen anyway. Discharge Plan Triage Chief Complaint: General Illness ED Provider: Sultana Singh Dx/Rx/DC Orders Clinical Impression: COVID-19 Instructions: Caring for Someone Who Has COVID-19 Prescriptions: New ondansetron [ondansetron] 4 mg tablet,disintegrating 4 mg PO Q8H PRN PRN (Reason: Nausea) Qty: 10 0RF naproxen 500 mg tablet 500 mg PO BID Qty: 14 0RF Paxlovid 300 mg (150 mg x 2)-100 mg tablets,dose pack See Rx Instructions .ROUTE .COMPLEX Qty: 30 0RF Rx Instructions: take TWO 150 mg tablets of nirmatrelvir with ONE 100 mg tablet of ritonavir twice daily for 5 days No Action acetaminophen [Tylenol] 325 mg tablet 325 mg PO ONCE PRN (Reason: pain) ibuprofen 200 mg Tablet 200 mg PO Q6H PRN (Reason: pain) docusate sodium [Stool Softener] 100 mg capsule 100 mg PO BID PRN (Reason: STOOL SOFTENER) loperamide [Imodium A-D] 2 mg capsule 2 mg PO Q6H PRN (Reason: loose stool) ferrous sulfate 325 mg (65 mg iron) tablet,delayed release (DR/EC) 325 mg PO DAILY cholecalciferol (vitamin D3) [Vitamin D3] 25 mcg (1,000 unit) capsule 25 mcg PO DAILY Primary Care Provider: Ben Loza Referrals: Ben Loza, [Primary Care Provider] - 5-7 Days Disposition Disposition: Home, Self Care Discharge Date/Time: 07/10/23 09:04
[2023-07-10] MEDS: Ketorolac 60 MG/2 ML Vial IM (08:44)
--- OUTSIDE RECORDS SUMMARY | 2023-07-10 08:56 | XMS RPT_ITS | CCD ---
Author Name Unknown Address [address] [place] [address] Organization [facility] Care Team Providers Care Auger Machine Offbearer Name Role Phone LAKIA LIRA) Unavailable Unav ailable LAKIA LIRA) Unavailable Unav ailable LAKIA LIRA) Unavailable Unav ailable [facility] BAKARI/Markus TAY Unavailable Jana Figueredo RN Unavailable Unavailable Brown DO, Boone Primary Care Provider Paolo VILLEGAS/Markus TAY Unavailable [phone] Jana Figueredo RN Unavailable Unavailable Brown DO, Boone Primary Care Provider Debra CONCRETE WORKER-ROAD ROLLER ENGINEER, Luz R Unavailable Eric DO, Bryan A Unavailable [phone] Jeannine Dominguez RN Unavailable Unavailable Jennifer BAKARIBS, Fabby G Unavailable [phone] [facility] BAKARI/Markus TAY Unavailable Jana Figueredo RN Unavailable Unavailable Brown DO, Boone R Primary Care Provider [facility] CONCRETE WORKER-ROAD ROLLER ENGINEER, Luz R Unavailable Eric DO, Bryan A Unavailable [phone] Jennifer ZAZUETA, Fabby G Unavailable Zoila Pastrana RN Unavailable Unavailable BROWN, BOONE R Primary Care Unavailable JENNIFER, FABBY G Attending Unavailable BROWN, BOONE R Referring Unavailable BROWN, BOONE R Referring Unavailable JENNIFER, FABBY G Attending Unavailable BROWN, BOONE R Primary Care Unavailable JENNIFER, FABBY G Attending Unavailable BROWN, BOONE R Primary Care Unavailable BROWN, BOONE R Referring Unavailable BROWN, BOONE R Primary Care Unavailable MELANIE BURNETT Referring Unavailable CONSULT, ANESTHESIA PAIN MED Consulting Yocasta vailable JENNIFER, FABBY G Attending Unavailable JENNIFER, FABBY G Referring Unavailable JENNIFER, FABBY G Admitting Unavailable BROWN, BOONE R Primary Care Unavailable BROWN, BOONE R Primary Care Unavailable JENNIFER, FABBY G Attending Unavailable CONSULT, ANESTHESIA PAIN MED Consulting Yocasta vailable JENNIFER, FABBY G Referring Unavailable JENNIFER, FABBY G Admitting Unavailable BROWN, BOONE R Primary Care Unavailable JENNIFER, FABBY G Attending Unavailable BROWN, BOONE R Referring Unavailable JENNIFER, FABBY G Attending Unavailable BROWN, BOONE R Primary Care Unavailable JENNIFER, FABBY G Referring Unavailable Medications Current Medications Medication Drug Class(es) Dates Sig (Normalized) Sig (Original) acetaminophen 325 mg / oxyCODONE hydrochloride 5 mg oral tablet (2 sources) Opioid Agonist Start: 02-05-2023 End: 02-10-2023 take 1 tablet by mouth every six hours as needed oxyCODONE-acetami nophen 5-325 MG per tablet Indications: Rectal cancer Take 1 tablet by mouth every 6 hours as needed for up to 5 days. 20 tablet 0 02/05/2023 Active docusate sodium 100 mg oral capsule (2 sources) Start: 02-05-2023 End: 03-07-2023 take 1 capsule by mouth twice daily Docusate 100 MG capsule Take 1 capsule by mouth 2 times daily. 60 capsule 0 02/05/2023 03/07/2023 Active ferrous fumarate 18 mg oral tablet (3 sources) take 1 tablet by mouth once daily Ferrous Fumarate (Iron) 18 MG Tab CR Take 1 tablet by mouth daily. 0 Active Completed/Discontinued Medications Medication Drug Class(es) Dates Sig (Normalized) Sig (Original) acetaminophen 325 mg oral tablet (6 sources) Start: 02-03-2023 End: 02-05-2023 take 1 tablet by mouth every eight hours 975 mg, Oral, EVERY 8 HOURS NON-STANDARD, First dose on Mon02/03/23 at 1730, Until Discontinued Maximum dose of acetaminophen is 4000 mg from all sources in 24 hours. Post-op/Post-Proc Problems Active Problems Problem Classification Problem Date Documented Da te Episodic/Chronic Abdominal pain (1 source) Left flank pain; Translations: [Unspecified abdominal pain] Episodic Cancer of rectum and anus (10 sources) Adenocarcinoma of rectum; Translations: [Malignant neoplasm of rectum] Onset: 08-16-2022 Chronic Malaise and fatigue (1 source) Other fatigue; Translations: [Other fatigue] Onset: 01-31-2018 Episodic Other gastrointestinal disorders (3 sources) Ileostomy present; Translations: [Encounter for attention to ileostomy] Onset: 02-03-2023 02-03-2023 Chronic Other nutritional; endocrine; and metabolic disorders (5 sources) Obese class I; Translations: [Obesity, unspecified] Onset: 04-01-2022 04-01-2022 Chronic Unclassified (1 source) Other specified abnormal findings of blood chemistry; Translations: [Other specified abnormal findings of blood chemistry] Onset: 02-06-2018 Episodic Past or Other Problems Problem Classification Problem Date Documented Da te Episodic/Chronic Administrative/social admission (3 sources) Patient encounter status; Translations: [Other specified counseling] Onset: 11-01-2022 Episodic Mood disorders (5 sources) Mood disorders Onset: 03-30-2022 Resolved: 11-22-2022 03-30-2022 Residual codes; unclassified (2 sources) Other specified health status; Translations: [Other specified health status] Onset: 09-23-2022 Episodic Results Test Name Value Interpretation Reference Range Facil ity Vital Signs Date Time Vital Sign Value Performing Clinician Coreen dia 03-07-2023 08:18-0400 Body height 167.6 cm Fabby ZAZUETA Work Phone: [facility] 03-07-2023 08:18-0400 Body mass index (BMI) [Ratio] 30.67 kg/m2 Fabby ZAZUETA Work Phone: [facility] 03-07-2023 08:18-0400 Body temperature 97.59 [degF] Fabby ZAZUETA Work Phone: [facility] 03-07-2023 08:18-0400 Body weight 86.18 kg Fabby ZAZUETA Work Phone: [facility] 03-07-2023 08:18-0400 Diastolic blood pressure 55 mm[Hg] Fabby Jennifer MBBS Work Phone: [facility] 03-07-2023 08:18-0400 Heart rate 66 /min Fabby Jennifer MBBS Work Phone: [facility] 03-07-2023 08:18-0400 Respiratory rate 18 /min Fabby Jennifer MBBS Work Phone: [facility] 03-07-2023 08:18-0400 SaO2% (BldA) [Mass fraction] 100 % Fabby Jennifer MBBS Work Phone: [facility] 03-07-2023 08:18-0400 Systolic blood pressure 115 mm[Hg] Fabby Jennifer MBBS Work Phone: 0(137)523-150628 [place] [address] 02-05-2023 11:54-0400 Body temperature 98.1 [degF] Fabby Jennifer MBBS Work Phone: 9(235)026-798928 [place] [address] 02-05-2023 11:54-0400 Diastolic blood pressure 54 mm[Hg] Fabby Jennifer MBBS Work Phone: 6(260)957-540828 [place] [address] 02-05-2023 11:54-0400 Heart rate 68 /min Fabby Jennifer MBBS Work Phone: 0(793)968-048128 [place] [address] 02-05-2023 11:54-0400 Respiratory rate 14 /min Fabby Jennifer MBBS Work Phone: 9(477)274-140028 [place] [address] 02-05-2023 11:54-0400 SaO2% (BldA) [Mass fraction] 98 % Fabby Jennifer MBBS Work Phone: 7(557)528-289628 [place] [address] 02-05-2023 11:54-0400 Systolic blood pressure 108 mm[Hg] Fabby Jennifer MBBS Work Phone: 3(609)809-103128 [place] [address] 02-03-2023 17:24-0400 Body height 167.6 cm Fabby Jennifer MBBS Work Phone: 4(129)729-242241 [place] [address] 02-03-2023 17:24-0400 Body mass index (BMI) [Ratio] 31.15 kg/m2 Fabby Jennifer MBBS Work Phone: 9(764)825-838528 [place] [address] 02-03-2023 17:24-0400 Body weight 87.54 kg Fabby Jennifer MBBS Work Phone: 6(064)365-325928 [place] [address] 10-18-2022 12:05-0400 Body mass index (BMI) [Ratio] 35.15 kg/m2 Fabby Jennifer MBBS Work Phone: 1(216)197-034328 [place] [address] 10-18-2022 12:05-0400 Body temperature 97.2 [degF] Fabby Jennifer MBBS Work Phone: 1(735)201-932428 [place] [address] 10-18-2022 12:05-0400 Body weight 98.75 kg Fabby Jennifer MBBS Work Phone: 1(196)331-499028 [place] [address] 10-18-2022 12:05-0400 Diastolic blood pressure 58 mm[Hg] Fabby Jennifer MBBS Work Phone: 2(008)717-462428 [place] [address] 10-18-2022 12:05-0400 Heart rate 73 /min Fabby Jennifer MBBS Work Phone: 2(575)260-689028 [place] [address] 10-18-2022 12:05-0400 Respiratory rate 18 /min Fabby Jennifer MBBS Work Phone: 1(354)141-129028 [place] [address] 10-18-2022 12:05-0400 SaO2% (BldA) [Mass fraction] 99 % Fabby Jennifer MBBS Work Phone: 7(282)572-214728 [place] [address] 10-18-2022 12:05-0400 Systolic blood pressure 121 mm[Hg] Fabby Jennifer MBBS Work Phone: 1(224)693-802728 [place] [address] 03-30-2022 10:07-0400 Body height 170 cm Fabby Jennifer MBBS Work Phone: [facility] 03-30-2022 10:07-0400 Body mass index (BMI) [Ratio] 33.37 kg/m2 Fabby Jennifer MBBS Work Phone: [facility] 03-30-2022 10:07-0400 Body temperature 97.5 [degF] Fabby Jennifer MBBS Work Phone: [facility] 03-30-2022 10:07-0400 Body weight 96.44 kg Fabby Jennifer MBBS Work Phone: [facility] 03-30-2022 10:07-0400 Diastolic blood pressure 58 mm[Hg] Fabby Jennifer MBBS Work Phone: [facility] 03-30-2022 10:07-0400 Heart rate 83 /min Fabby Jennifer MBBS Work Phone: [facility] 03-30-2022 10:07-0400 Respiratory rate 18 /min Fabby Jennifer MBBS Work Phone: [facility] 03-30-2022 10:07-0400 SaO2% (BldA) [Mass fraction] 96 % Fabby Jennifer MBBS Work Phone: [facility] 03-30-2022 10:07-0400 Systolic blood pressure 111 mm[Hg] Fabby Jennifer MBBS Work Phone: [facility] Encounters Encounter Date Encounter Type Care Provider Facility Start: 03-07-2023 ambulatory BOONE LOZA [facility] y:[facility] Start: 03-07-2023 End: 03-07-2023 Postop follow up visit related to original px Afbby G Jennifer MBBS Work Phone: Division of Colon & Rectal Surgery Procedures Date Procedure Procedure Detail Performing Clinician Start: 02-05-2023 Assay of magnesium Martita Moss MD Work Phone: Start: 02-04-2023 Assay of magnesium Martita Moss MD Work Phone: Start: 02-03-2023 CONTINUOUS CARDIAC MONITORING STRIP Other Other Start: 02-03-2023 End: 02-03-2023 Antibody screen Fabby ZAZUETA Work Phone: Plan of Treatment Date Care Activity Detail Author Start: 03-07-2023 End: 03-07-2023 Patient encounter procedure 03/07/2023 8:15 AM EDT Office Visit Division of Colon & Rectal Surgery [address] [phone] Fabby Cooper MBBS [address] [phone] Division of Colon & Rectal Surgery Start: 02-24-2023 Influenza vaccination INFLUENZA VACC INE (#1) [facility] Start: 11-22-2022 End: 11-22-2022 Patient encounter procedure 11/22/2022 Office Visit Colon & Rectal Surgery Fabby Cooper MBBS [address] [phone] Division of Colon & Rectal Surgery Start: 02-24-2022 Influenza vaccination INFLUENZA VACC INE (#1) [facility] Start: 2021 Fasting lipid profile LIPID SCREENIN G [facility] Start: 2021 Lipid panel LIPID SCREENING [facility] Start: 2021 Screening for malign ant neoplasm of breast MAMMOGRAM SCREENING DISCUSSION [facility] Start: 2021 Screening mammography MAMMOGRA M SCREENING DISCUSSION [facility] Start: 03-21-2021 COVID-19 VACCINE (3 - Booster for Pfizer series) COVID-19 VACCINE (3 - Booster for Pfizer series) [facility] Start: 2002 Screening for malign ant neoplasm of cervix CERVICAL CANCER SCREENING DISCUSSION [facility] Start: 2000 Third diphtheria, te tanus and acellular pertussis (DTaP) vaccination TDAP (ADULT) [facility] Start: 11-17-1999 Tetanus vaccination TETANUS [facility] Start: 1996 HIV screening HIV SCREENING DISCUSSION [facility] Start: 1981 Hepatitis C antibody , confirmatory test HEPATITIS C VIRUS SCREENING [facility] Start: 1981 Hepatitis C screening HEPATITI S C VIRUS SCREENING [facility] Start: 1981 Tetanus vaccination TETANUS [facility] SURG PATH REQUEST [facility] Immunizations Immunization Date Immunization Notes Care Provider Fa cility 06-03-2022 influenza virus vaccine, unspecified formulation Fabby ZAZUETA Work Phone: [facility] Payers Date Payer Category Payer Private Health Insurance [facility] [id number] 2021-Present [address] [address] [place] [address] [id number] 2021 Unknown [id number] 1980 Unknown [id number] 1980 Unknown [id number] 1980 Unknown [id number] 1981 Unknown [id number] 1981 Unknown [id number] 1981 Unknown [id number] 1980 Unknown [id number] 1980 Unknown [id number] Social History Date Type Detail Facility Start: 03-30-2022 End: 08-16-2022 Tobacco smoking status NHIS Ex-smoker [facility] History of tobacco use Cigarette Smoker [facility] Start: 03-30-2022 End: 08-16-2022 Tobacco use and exposure Former smokeless tobacco user [facility] Start: 03-30-2022 End: 03-07-2023 Alcohol intake Current drinker of alcohol (finding) [facility] Start: 03-30-2022 History SDOH Alcohol Comment Only occasionally [facility] Start: 03-30-2022 End: 08-16-2022 Tobacco Comment I quit about 15 years ago [facility] Start: 1980 Sex Assigned At Not on file O [facility] History of tobacco use Current smoker [facility] Start: 09-28-2022 End: 02-03-2023 Exposure to SARS-CoV-2 (event) Not sure [facility] Start: 11-22-2022 End: 03-07-2023 History of Social function [facility] Start: 11-22-2022 End: 03-07-2023 Tobacco use panel [facility] Adolescent depressio n screening assessment 0 [facility] Goals Date Patient Goal Desired Activity /State Clinical Notes 03-30-2022 to 03-07-2023 MARBIN Dominique - 03/07/2023 8:15 AM Rakesh Yu MD - 03/07/2023 8:15 AM EDTPlan of Care - Perry Castaneda RN - 02/05/2023 4:11 PM EDTPlan of Francisca - Perry Castaneda RN - 02/05/2023 4:11 PM EDT Note Date & Type Note Facility 03-07-2023 History of Presen t illness Narrative Attending Attestation: Patient was seen independently. I agree with resident's note, exam and plan. Patient returns after stoma reversal. Doing well. Stoma site has almost healed. She reports some improvement in her bowel symptoms but continues to experience clustering, irregularity and occasional incontinence. We discussed low anterior resection syndrome and dietary modifications that may result in symptomatic improvement. She will report her progress via mychart and will return to see me on as needed basis. Colorectal Surgery Clinic Note Chief Complaint Patient presents with Post Op Visit HPI: Mona Singh was seen on 03/07/2023 in the Colorectal Surgery clinic for follow-up. Patient underwent laparoscopic ultra low anterior resection and loop ileostomy (10/07/2022) for low rectal cancer and subsequently underwent ileostomy reversal (02/03/2023). Patient reports she continues to have very unpredictable bowel movements, reporting days without bowel movements as well as days with incontinence. She reports this is worse at night. Otherwise, reports prior ileostomy site is healing well and she no longer is having to pack it. Denies any pain or purulent drainage. BP 115/55 Pulse 66 Temp 97.6 F (36.4 C) Resp 18 Ht 1.676 m (5' 6 ) Wt 86.2 kg (190 lb) SpO2 100% BMI 30.67 kg/m Smoking Status Former Body mass index is 30.67 kg/m . Physical Exam: Gen: Alert, well appearing, and in no distress Abdomen: soft, non-tender, non-distended, prior ileostomy site shallow and healing well with firm granulation tissue, no surrounding erythema or purulent drainage Assessment: 42 y.o. female with low rectal cancer s/p laparoscopic ultra low anterior resection and loop ileostomy (10/07/2022) followed by loop ileostomy reversal (02/03/2023). She is healing as expected and doing well. Plan: Discussed strategies to assist with bowel movements including not eating at least 3 hours prior to going to bed at night. Patient will require colonoscopy in 1 year. She has follow up with med onc today. Harriett Yu MD documented in this encounter [facility] 02-05-2023 Plan of care note Problem: Patient Care Overview Goal: Plan of Care Review Outcome: Completed Goal: Individualization & Mutuality Outcome: Completed Goal: Discharge Needs Assessment Outcome: Completed Goal: Interdisciplinary Rounds/Family Conf [facility] Miscellaneous Notes Problem: Patient Care Overview Goal: Plan of Care Review Outcome: Completed Goal: Individualization & Mutuality Outcome: Completed Goal: Discharge Needs Assessment Outcome: Completed Goal: Interdisciplinary Rounds/Family Conf Outcome: Completed Pt is being discharged at this time. Pt is AO x 4. Before discharge significant other performed dressing change and all questions were answered. Supplies were sent home with patient. PIV was removed per protocol and clean dry dressing applied. All personal belongings were gathered and taken upon discharge. Pt placed in wheelchair and taken down to outpt pharmacy to sampler pickup Rx. Then pt taken to main entrance of hospital. End of care. 7:54 PM, pt bladder scanned= 202ml, bladder scan-202ml. pt encouraged to drink and will attempt to void at 2200. Text page sent to dr. Ybarra to notify Preoperative diagnosis: Stoma status Postoperative diagnosis: Stoma Status Procedure: Ileostomy reversal Surgeon: Dr. Fabby Cooper Anesthesia: Gen. Via endotracheal tube Complications: None Specimen: Ileostomy EBL: Minimal Drain: None Indications for procedure: Mona Singh presented with request of loop ileostomy closure. After review of his studies, decision was made to proceed with the stoma closure. Risks, benefits and potential complications were discussed with patient at length. Details of procedure: The patient came in via ambulatory surgery, was seen by anesthesiology in the preoperative assessment area then taken to the operating room and placed supine on the operating table. The patient's identity was confirmed, sequential compression devices were placed and IV antibiotics were administered. Gen. Anesthesia was administered via endotracheal tube without difficulty. A purse string suture was tied around stoma minimize contamination of operative field. The operative site was prepped and draped in the usual sterile manner. We started by placing a circumstomal incision at mucocutaneous junction. Dissection was carried down to the fascia and then into the peritoneal cavity until the loop ileostomy was completely free circumferentially. We then proceeded resecting the ileostomy margin with HEMA stapler, intervening mesentery was tied and divided and ileostomy margin was passed off the field. The two ends of bowel were then aligned and a side to side anastomosis was created using HEMA. The resultant enterotomy was closed with a transverse firing of stapler and mesenteric defect was closed using running 2-0 Silk sutures. The bowel was returned to peritoneal cavity. The stoma site fascial defect was closed using #1 Maxon inturrupted sutures. Skin was left open and packed with sterile gauze. The patient tolerated the procedure well, there were no immediate postoperative or post anesthesia complications. Patient was taken from the operating room to recovery room in stable condition. All instrument and sponge counts were correct and I was scrubbed and present throughout the entire case. 1256: Patient arrives in [facility] PACU from OR via gurney with side rails up x2 with HOB >30 degrees, accompanied by ACRNA: Trell Thao APRN-NICOLÁS Sleeve Setter Lockstitch: ISMAEL Uriostegui. Patient placed on monitors, VSS. Report received from anesthesia. Patient assessed, see assessment. 1257: MD Moss stated no labs or imaging. Patient needs to void in 6 - 8 hrs. Patient will be a clear liquid diet. 1359: Called MD English regarding patient HR of 45. Patient asymptomatic with a bp of 114/57. MD English okay with HR in the 40s as long as patient remains asymptomatic. 1450: Updated family waiting room. 1502: Tried to call MD English... went to voicemail. 1503: Paged MD English for sign out. 1518: FYI MD Adan pt. HR in 40s when sleeping. Asymptomatic. 1540: Called to give my number to the nurse receiving my patient. Will call back when ready for report. 1546: Updated family waiting room. 1555: Handoff to ASHANTI Young. 1642: Received report from ASHANTI Young. 1648: Report given to ASHANTI Love. 1651: Patient discharged from [facility] PACU per protocol. Patient transported via gurney with side rails up x2 with HOB>30 degrees to room 1212 by ASHANTI Briggs, Oji, MANAGER HEALTH. Family called to patient's bedside. Mona Coburn Vijayaioana ([id number]) PRE OPERATIVE DIAGNOSIS Rectal adenocarcinoma [C20] POST OPERATIVE DIAGNOSIS Post-Op Diagnosis Codes: * Rectal adenocarcinoma [C20] PROCEDURE PERFORMED Procedure(s) (LRB): LOOP ILEOSTOMY CLOSURE (N/A) PRIMARY CLOSURE Yes INTRAOPERATIVE FINDINGS encounter dense adhesions to the mature loop of small bowel. two intentional enterotomies were made to release the small bowel and a subsequent side to side small bowel anastomosis was made. SURGEON Surgeon(s) and Role: * MARBIN Dominique - Primary ANESTHESIOLOGIST Anesthesiologist: Jade English MD; Kristi Cardona MD FIELD SCOUT: Trell Thao APRN-FIELD SCOUT Sleeve Setter Lockstitch: ISMAEL Uriostegui Head Golf Professional Assisting: Alexa Omalley MD SURGICAL STAFF Psychiatric Mental Health Nurse: Sonia Quintana RN Relief Psychiatric Mental Health Nurse: Rody Goodman RN Relief Scrub: Jimena Adler Resident Assisting: Martita Moss MD Truer Pinion And Wheel: Dick Hess COMPLICATIONS None ESTIMATED BLOOD LOSS Minimal SPECIMENS see below ID Type Source Tests Collected by Time Destination 1 : Ileostomy Permanent SURG PATH SURG PATH REQUEST MARBIN Dominique 02/03/2023 [id number] Martita Moss MD February 03, 2023 12:59 PM Pt has history of chemotherapy (last tx ~August 2022) and radiation (last tx April 2022). Pt denies hx of seizure or stroke activity. Pt has ileostomy. documented in this encounter [facility] 02-05-2023 Nurse Note Pt is being discharged at this time. Pt is AO x 4. Before discharge significant other performed dressing change and all questions were answered. Supplies were sent home with patient. PIV was removed per protocol and clean dry dressing applied. All personal belongings were gathered and taken upon discharge. Pt placed in wheelchair and taken down to outpt pharmacy to sampler pickup Rx. Then pt taken to main entrance of hospital. End of care. [facility] 02-05-2023 Hospital course Narrative Discharge Summary Name: Mona Singh Age: 42 y.o. Birthday: 1980 Admit Date: 02/03/2023 7:33 AM Discharge Date: 02/05/23 Admission Information Admitting Physician: MARBIN Dominique Discharge Information Discharge Physician: Sada Problem List Active Hospital Problems Diagnosis Attention to ileostomy Resolved Hospital Problems No resolved problems to display. Brief Summary of Hospital Course for Discharge Summary: 42F, prior hx of ultra low LAR with diverting loop ileostomy who presented for elective ileostomy takedown. She was admitted post procedure, pain was controlled on PO Rx. She had return of bowel function, flatus and BM, was trailed on clears and then solid food. She tolerated this without issues. She was feeling well, ambulating, and ready for DC 02/05/23. She elected to care for her old ostomy site, with packing changes with family assistance, vs home health. Brief Summary of Procedures and Imaging for Discharge Summary: NA Summary of last selected lab results and date obtained: Lab Results Component Value Date WBC 3.63 (L) 02/05/2023 HGB 9.2 (L) 02/05/2023 HCT 27.3 (L) 02/05/2023 PLATELET 201 02/05/2023 MCV 93.5 02/05/2023 Lab Results Component Value Date SODIUM 143 02/05/2023 POTASSIUM 3.9 02/05/2023 CHLORIDE 110 (H) 02/05/2023 CO2 26 02/05/2023 BUN 7 02/05/2023 CREATSERUM 0.62 02/05/2023 GLUCOSE 84 02/05/2023 No results found for: ALT , TRANSFERASEA , AST , GGT , GAMMAGT , ALKPHOS , BILITOTAL , BILIDIRECT Brief Summary of Labs for Discharge Summary: Discharge Orders Lifting restrictions Diet - Regular Call MD for: temperature > 100.4 Call MD for: persistent nausea or vomiting Call MD for: severe uncontrolled pain Call MD for: redness, tenderness or signs of infection (pain, swelling, redness, odor or green/yellow discharge around incision site) Dressing / Wound Care (specify) Current Outpatient Meds: Medication List for when you go home CONTINUE taking these medications Acetaminophen 325 MG tablet Take 2 tablets by mouth every 6 hours as needed for Moderate Pain. Commonly known as: TYLENOL Ibuprofen 200 MG TABS Take 2-3 tablets every 6 hours as needed for pain Commonly known as: MOTRIN Medication Instructions: Pain Medication A prescription for pain medicine may be sent home with you. Do not drive while taking prescription pain medicine. Eat when taking pain medicines to avoid nausea. When your pain decreases switch to over the counter acetaminophen, like Tylenol. Follow the dose as label directs. Follow-up: MARBIN Dominique [address] [facility] [address] [facility] [id number] Follow up in 2 week(s) Upcoming Appointments (up to five)-Some appointments for Medical Center outpatient clinics or diagnostic testing locations are not displayed below Provider Department Dept Phone 03/07/2023 8:15 AM Fabby Cooper Division of Colon & Rectal Surgery Arrive at: Arrive to [facility] Registration [phone] documented in this encounter [facility] 02-04-2023 History of Presen t illness Narrative Summary: [facility] Transfer Note Discharge Planning for Home Health Options for discharge have been discussed with patient and family. Patient and family agree the post hospital care needs will best met at home with home care services. Background Information/ Hospital Overview: Patient is a 42 year old female with past medical history significant for rectal adenocarcinoma. Patient is now s/p loop ileostomy closure on 02/03/23. Services needed: Correction Correction Needs Will need old stoma site packed BID. Line / tube / drain type and care needed None. Wound Care BID wet to dry packing to old stoma site with saline soaked kerlix. Cover with abdominal pad and tape dressing to secure. Oxygen requirements / airway On room air. Lab work: type and frequency None. Specialty Medications: (chemotherapy / IV antibiotics / Hydration) None. Additional information regarding needed services: None. Teachable Caregiver / Family Support: Spouse is a teachable caregiver and will be willing to work with [facility] to obtain education if there are complex teaching services needed for the patient. Physician following for home care orders / phone: Dr. Cooper / phone: [phone] Outpatient PCRM / phone: Jeannine Manuel RN / phone: [phone] Sonia RÍOS, RN, PCRM Phone #: [phone] COLORECTAL SURGERY PROGRESS NOTE 02/04/2023 1 Day Post-Op from loop ileostomy closure ASSESSMENT / PLAN: Ms. Singh is a 42 y.o. female, hx of ultra low LAR and DLI, now s/p closure of her ileostomy. BID packing changes to ileostomy site, work on for packing. Advance diet as able pending bowel function INTERVAL EVENTS: No overnight events, no nausea, no emesis, no flatus or BM yet, tolerating CLD EXAM: No acute events RRR No IWB Soft, NT, ND, old stoma site c/d/i, no cellulitis, beefy tissue at base Temp: [97.5 F (36.4 C)-98.5 F (36.9 C)] 98.5 F (36.9 C) Pulse (Heart Rate): [44-80] 70 Resp Rate: [11-32] 14 BP: (94-135)/(52-72) 101/54 O2 Sat (%): [94 %-100 %] 99 % Weight: [87.5 kg (193 lb)] 87.5 kg (193 lb) I/O last 3 completed shifts: In: 4206.3 [P.O.:510; I.V.:3546.3; IV Piggyback:150] Out: 1000 [Urine:1000] Recent Labs 02/04/23 0320 WBC 5.32 HGB 8.8* HCT 26.5* PLATELET 201 CREATSERUM 0.52 POTASSIUM 3.9 Patient seen and examined at bedside. No acute events overnight. Pain well-controlled with current regimen. Patient denies headache, SOB, nausea, emesis, pruritus, and paresthesias. Vitals: 02/03/23 1724 02/03/23 1948 02/03/23 2304 02/04/23 0300 BP: 110/56 104/58 100/59 98/52 Pulse: 59 52 58 60 Resp: 14 12 Temp: 98.5 degrees F (36.9 degrees C) 97.9 degrees F (36.6 degrees C) 97.5 degrees F (36.4 degrees C) 97.6 degrees F (36.4 degrees C) TempSrc: Oral Oral Oral Oral SpO2: 100% 99% 97% 97% Weight: 87.5 kg (193 lb) Height: 1.676 m (5' 6 ) Physical Examination: GEN: Reclining in bed, NAD HEENT: NC/AT CHEST: Equal chest rise bilaterally, no labored breathing HEART: RRR ABDOMEN: Soft, nondistended SKIN: Intact, no rashes NEURO: Alert and oriented, no gross focal deficit Assessment and Plan: 42 y.o. female s/p Procedure(s) (LRB): LOOP ILEOSTOMY CLOSURE (N/A) on 02/03/23 with arleen-op ITM. Patient doing well with minimal adverse effects. APS will sign off at this time. Please call [phone] or page [phone] with any questions or concerns. Alexa Omalley MD Anesthesia PGY1 [facility] 8095 Surgery Post-Op Check Note Mona Singh is a 42 y.o. yr old female, who is now POD#0 s/p Procedure(s) (LRB): LOOP ILEOSTOMY CLOSURE (N/A). There were no complications to the procedure, and the patient tolerated it well. Arrived to the floor in stable condition. Subjective: Patient resting comfortably in bed. Patient alert, oriented and participatory in clinical exam. Nausea is currently controlled with prn medications. Pain is controlled on current regimen with no complaints. Patient is breathing comfortably and denied any SOB or chest pain. Has been unable to void post-op. No questions or concerns at this time. Objective: BP 104/58 (BP Location: Right arm, BP Position: Lying) Pulse 52 Temp 97.9 F (36.6 C) (Oral) Resp 18 Ht 1.676 m (5' 6 ) Wt 87.5 kg (193 lb) SpO2 99% BMI 31.15 kg/m Smoking Status Former Exam: GEN: NAD, laying comfortably in bed CV: RRR, HDS Pulm: No respiratory distress Abd: Soft, appropriately tender, mildly-distended. Laparoscopic incisions clean,dry, and intact Ext: No LE swelling/edema, distal pulses 2+ Neuro: No focal deficits Assessment: 42 y.o. yr old female now POD 0 s/p Procedure(s) (LRB): LOOP ILEOSTOMY CLOSURE (N/A). Currently stable on the floor. Plan: - DIET CLEAR LIQUID - Pain control: multimodal - Wilkerson: Removed. Bladder scan now, if less than 300ml recheck in 2 hours if unable to void. If greater than 300ml, will straight cath. - Patient advised to call with any concerns - Will continue to monitor Eloy Ybarra MD General Surgery PCRM attempted to meet with patient for initial assessment, however patient is not available at this time due to being in surgery. PCRM will continue to attempt as able. Chart reviewed. Pt presenting for ostomy reversal. Anticipate wet to dry wound packing at old ostomy site. AVS started and follow up scheduled. PCRM will continue to follow with multidisciplinary team for ongoing assessment of needs and discharge planning. KANE Mckee [phone] documented in this encounter [facility] 02-03-2023 Nurse Note 7:54 PM, pt bladder scanned= 202ml, bladder scan-202ml. pt encouraged to drink and will attempt to void at 2200. Text page sent to dr. Ybarra to notify [facility] 02-03-2023 Surgery Postoperative evaluation and management note Preoperative diagnosis: Stoma status Postoperative diagnosis: Stoma Status Procedure: Ileostomy reversal Surgeon: Dr. Fabby Cooper Anesthesia: Gen. Via endotracheal tube Complications: None Specimen: Ileostomy EBL: Minimal Drain: None Indications for procedure: Mona Singh presented with request of loop ileostomy closure. After review of his studies, decision was made to proceed with the stoma closure. Risks, benefits and potential complications were discussed with patient at length. Details of procedure: The patient came in via ambulatory surgery, was seen by anesthesiology in the preoperative assessment area then taken to the operating room and placed supine on the operating table. The patient's identity was confirmed, sequential compression devices were placed and IV antibiotics were administered. Gen. Anesthesia was administered via endotracheal tube without difficulty. A purse string suture was tied around stoma minimize contamination of operative field. The operative site was prepped and draped in the usual sterile manner. We started by placing a circumstomal incision at mucocutaneous junction. Dissection was carried down to the fascia and then into the peritoneal cavity until the loop ileostomy was completely free circumferentially. We then proceeded resecting the ileostomy margin with HEMA stapler, intervening mesentery was tied and divided and ileostomy margin was passed off the field. The two ends of bowel were then aligned and a side to side anastomosis was created using HEMA. The resultant enterotomy was closed with a transverse firing of stapler and mesenteric defect was closed using running 2-0 Silk sutures. The bowel was returned to peritoneal cavity. The stoma site fascial defect was closed using #1 Maxon inturrupted sutures. Skin was left open and packed with sterile gauze. The patient tolerated the procedure well, there were no immediate postoperative or post anesthesia complications. Patient was taken from the operating room to recovery room in stable condition. All instrument and sponge counts were correct and I was scrubbed and present throughout the entire case. [facility] 02-03-2023 Nurse Note 1555: Handoff received from ASHANTI Briggs. 1603: Attempted to call report to 12 Giovani RN, RN unavailable at this time. 1636: Attempted to call report to 12 Giovani RN, RN not answering phone at this time. 1641: Handoff given to ASHANTI Briggs. documented in this encounter [facility] 02-03-2023 Nurse Surgical operation note 1555: Handoff received from ASHANTI Briggs. 1603: Attempted to call report to 12 Giovani RN, RN unavailable at this time. 1636: Attempted to call report to 12 Giovani RN, RN not answering phone at this time. 1641: Handoff given to ASHANTI Briggs. [facility] 02-03-2023 Nurse Note 1256: Patient arrives in [facility] PACU from OR via gurney with side rails up x2 with HOB >30 degrees, accompanied by ACRNA: Trell Thao APRN-NICOLÁS Sleeve Setter Lockstitch: ISMAEL Uriostegui. Patient placed on monitors, VSS. Report received from anesthesia. Patient assessed, see assessment. 1257: MD Moss stated no labs or imaging. Patient needs to void in 6 - 8 hrs. Patient will be a clear liquid diet. 1359: Called MD English regarding patient HR of 45. Patient asymptomatic with a bp of 114/57. MD English okay with HR in the 40s as long as patient remains asymptomatic. 1450: Updated family waiting room. 1502: Tried to call MD English... went to voicemail. 1503: Paged MD English for sign out. 1518: GUIDO Arellano pt. HR in 40s when sleeping. Asymptomatic. 1540: Called to give my number to the nurse receiving my patient. Will call back when ready for report. 1546: Updated family waiting room. 1555: Handoff to ASHANTI Young. 1642: Received report from ASHANTI Young. 1648: Report given to ASHANTI Love. 1651: [facility]. Patient transported via gurney with side rails up x2 with HOB>30 degrees to room 1212 by ASHANTI Briggs, [place], MANAGER HEALTH. Family called to patient's bedside. [facility] 02-03-2023 Hospital Discharg e instructions Ruby Wolff RN - 02/03/2023 1:24 PM EDT COLORECTAL ADDITIONAL CONTACTS For Concerns During Weekend or Evening Hours: -If you have questions or concerns call and ask the self propelled hot mix roller operator to page the surgical garment assembly supervisor race relations adviser. Reminder: UIBLUEPRINThart messaging goes unmonitored during evenings and weekends. Any concerns or questions during this time, please call using instructions above. Clinic Office Main Number: [phone] Banking Supervisor: Ruby Wolff ([facility]) SW: Megan Coronel ([facility]) ENTEROSTOMAL THERAPY RN + OSTOMY Clinic+ Ruby Wolff RN - 02/03/2023 1:23 PM EDT Pain Medication A prescription for pain medicine may be sent home with you. Do not drive while taking prescription pain medicine. Eat when taking pain medicines to avoid nausea. When your pain decreases switch to over the counter acetaminophen, like Tylenol. Follow the dose as label directs. Ruby Wolff RN - 02/03/2023 1:23 PM EDT Activity No Driving for two weeks. No Driving while on pain medications. No lifting over 10 pounds for 6 weeks. No pushing, pulling or straining of abdominal muscles for 6 weeks. Activity as tolerated. Walking is encouraged however no strenuous exercise. You may shower. Do not take a tub bath, go swimming, or use a hot tub until instructed to do so. Ruby Wolff RN - 02/03/2023 1:24 PM EDT Regular Diet to help you maintain your health and control your weight. Choose healthy fats and oils such as canola or olive oils, and good sources of fiber and carbohydrates. Choose lean meats or vegetables proteins. Avoid adding salt to your foods. Increase daily intake of fruits and vegetables. You may find it easier to eat smaller meals throughout the day. Advance your diet as tolerated. Ruby Wolff RN - 02/03/2023 1:24 PM EDT For Concerns During Weekend or Evening Hours: -If you have questions or concerns call and ask the self propelled hot mix roller operator to have the general surgery chief resident paged. Reminder: [email or web address] messaging goes unmonitored during evenings and weekends. Any concerns or questions during this time, please call using instructions above. Clinic Office Main Number: [phone] NOTIFY PHYSICIAN: SYMPTOMS WOUND INFECTION - Increase in pain in or around wound - Change in the amount of drainage - Change in the color of drainage - Change in the odor of drainage - Warmth in the tissues around the wound - Red streaks on the skin near the wound - Fever (temperature greater than 101 degrees F) - Incision separates or opens up UNRELIEVED PAIN + - Increased or unrelieved pain NAUSEA/VOMITING + - Nausea and vomiting that continues for more than 24 hours - Not able to keep medicine down - Not able to keep fluids down SYMPTOMS OF DVT + DVT = Deep Vein Thrombus, or Blood Clot -Any Tender, Swollen, or Reddened Areas from Your Groin to Your Heels -Numbness or Tingling In Groin or Calf -The Skin on Your Leg Looks Pale or Blue or It Feels Cold To Touch -Numbness or Tingling In Groin or Calf -Any Shortness of Breath -Chest Pain -Fever or Chills SYMPTOMS OF GI BLEED + Call your doctor or nurse if you have signs of slow blood loss such as: -Black tarry bowel movements -Cold hands and feet -Weakness -Dizzyness Call 911 if you suddenly have signs of blood loss such as: -Vomiting blood -Fast heart rate -Feeling faint or blacking out -Passing bright red blood from your rectum Ruby Wolff RN - 02/03/2023 1:24 PM EDT Old Ostomy Site: Pack with Normal Saline (Wet to dry)- twice per day Your wound has packing with normal saline and a gauze or pad covering over the packing. Change the entire dressing twice each day. Change the gauze or pad cover dressing anytime it is wet, soiled or loose. Remove your old dressing and the packing and shower, gently cleaning the wound. Pat the wound dry with a clean towel. Replace the wound dressing as instructed. Pack the wound space loosely with kerlix fluffs that are moistened with normal saline. Cover with dry sterile dressing secured with tape. The following attachments cannot be sent through Care Everywhere.Pain and Pain Control ([facility]) (Swiss)documented in this encounter [facility] 02-03-2023 Surgery Postoperative evaluation and management note Mona Singh ([id number]) PRE OPERATIVE DIAGNOSIS Rectal adenocarcinoma [C20] POST OPERATIVE DIAGNOSIS Post-Op Diagnosis Codes: * Rectal adenocarcinoma [C20] PROCEDURE PERFORMED Procedure(s) (LRB): LOOP ILEOSTOMY CLOSURE (N/A) PRIMARY CLOSURE Yes INTRAOPERATIVE FINDINGS encounter dense adhesions to the mature loop of small bowel. two intentional enterotomies were made to release the small bowel and a subsequent side to side small bowel anastomosis was made. SURGEON Surgeon(s) and Role: * MARBIN Dominique - Primary ANESTHESIOLOGIST Anesthesiologist: Jade English MD; Kristi Cardona MD FIELD SCOUT: Trell Thao APRN-FIELD SCOUT Sleeve Setter Lockstitch: ISMAEL Uriostegui Head Golf Professional Assisting: Alexa Omalley MD SURGICAL STAFF Psychiatric Mental Health Nurse: Sonia Quintana RN Relief Psychiatric Mental Health Nurse: Rody Goodman RN Relief Scrub: Jimena Adler Resident Assisting: Martita Moss MD Truer Pinion And Wheel: Dick Hess COMPLICATIONS None ESTIMATED BLOOD LOSS Minimal SPECIMENS see below ID Type Source Tests Collected by Time Destination 1 : Ileostomy Permanent SURG PATH SURG PATH REQUEST MARBIN Dominique 02/03/2023 [id number] Martita Moss MD February 03, 2023 12:59 PM [facility] 02-03-2023 History and physical note Mona Singh presents today for scheduled stoma reversal. Patient denies any new GI issues in the interim. Patient has a past medical history of Rectal adenocarcinoma. Patient has a past surgical history that includes neck surgery and colectomy partial laparoscopic left (N/A, 10/07/2022). Patient has a current medication list which includes the following prescription(s): acetaminophen and ibuprofen, and the following Facility-Administered Medications: ceftriaxone, lidocaine 1% (pf), metronidazole, nalbuphine, naloxone, scopolamine AND VERIFY LINKED PATCH PLACEMENT, sodium chloride 0.9%. Patient has No Known Allergies. Patient reports that she has quit smoking. Her smoking use included cigarettes. She has quit using smokeless tobacco. She reports current alcohol use. She reports that she does not use drugs. Five point review of systems is otherwise negative. On exam, the patient appears comfortable without distress. BP 101/57 (BP Location: Right arm, BP Position: Lying) Pulse 63 Temp 97.8 F (36.6 C) (Oral) Resp 16 Ht 1.676 m (5' 6 ) Wt 87.5 kg (193 lb) SpO2 98% BMI 31.15 kg/m Smoking Status Former His lungs are clear. His heart sounds are normal. His abdominal exam is within normal range. I had a long conversation with the patient and treatment options were discussed at length. Will proceed with surgery as planned. [facility] Work Phone: 02-03-2023 History and physical note Mona Singh presents today for scheduled stoma reversal. Patient denies any new GI issues in the interim. Patient has a past medical history of Rectal adenocarcinoma. Patient has a past surgical history that includes neck surgery and colectomy partial laparoscopic left (N/A, 10/07/2022). Patient has a current medication list which includes the following prescription(s): acetaminophen and ibuprofen, and the following Facility-Administered Medications: ceftriaxone, lidocaine 1% (pf), metronidazole, nalbuphine, naloxone, scopolamine AND VERIFY LINKED PATCH PLACEMENT, sodium chloride 0.9%. Patient has No Known Allergies. Patient reports that she has quit smoking. Her smoking use included cigarettes. She has quit using smokeless tobacco. She reports current alcohol use. She reports that she does not use drugs. Five point review of systems is otherwise negative. On exam, the patient appears comfortable without distress. BP 101/57 (BP Location: Right arm, BP Position: Lying) Pulse 63 Temp 97.8 F (36.6 C) (Oral) Resp 16 Ht 1.676 m (5' 6 ) Wt 87.5 kg (193 lb) SpO2 98% BMI 31.15 kg/m Smoking Status Former His lungs are clear. His heart sounds are normal. His abdominal exam is within normal range. I had a long conversation with the patient and treatment options were discussed at length. Will proceed with surgery as planned. documented in this encounter [facility] 02-03-2023 Nurse Note Pt has history of chemotherapy (last tx ~August 2022) and radiation (last tx April 2022). Pt denies hx of seizure or stroke activity. [facility] History of Presen t illness Narrative Images from the original note were not included. WOC/ET Nursing Consult Note: Patient seen for leaking ileostomy. Wonder if convatec esteem [id number] will work? Needs v3 convexity so will order sample of another as well. documented in this encounter [facility] 10-18-2022 History of Presen t illness Narrative Images from the original note were not included. WOC/ET Nursing Consult Note: Patient seen for marlin removal. Deisy marlin removed with ease. Stoma retracted, multiple leaks at home. Placed deep convex alyssia [id number] with belt 4237 on. Peristomal skin dusted with stoma powder x2, cavilon barrier x 2 in crusting technique prior to application of pouch. Colorectal Surgery Post-Op Visit 10/18/2022 Post op visit Subjective: Complaining of left flank pain that started a couple days ago. Unable to recreate pain with movement. No fevers. Urinating well. Randell dysuria. Ostomy output ~ 500 ml. Stoma marlin removed Surgery/Date: 10/07/2022 Laparoscopic Ultra Low Anterior Resection with Hand Sewn Coloanal Anastomosis and Loop Ileostomy Pathology: Pathologic Diagnosis A. Rectum, laparoscopic partial colectomy: Benign colon with focal reactive changes No carcinoma identified Ten benign lymph nodes, 0/10 Diverticular disease B. Additional mesentery, excision: 5 benign lymph nodes, 0/5 BP 121/58 Pulse 73 Temp 97.2 F (36.2 C) (Oral) Resp 18 Wt 98.7 kg (217 lb 11.2 oz) SpO2 99% BMI 35.15 kg/m Smoking Status Former Body mass index is 35.15 kg/m . Physical Exam: Gen: Alert, well appearing, and in no distress Abdomen: soft, non-tender, non-distended, excoriation around stoma Assessment: 41 y.o. female with rectal cancer s/p chemoradiation now s/p LAR with DLI. Doing overwell but started with left flank pain Plan: UA to rule out UTI- updated- urine was negative. Continue to hydrate. Unsure of cause of flank pain Return to clinic in 6 weeks to discuss ostomy reversal KIP Tinajero I saw and evaluated the patient with HAT COPYIST. I personally reviewed the chart / imaging studies and provided a substantive portion of the care for this patient. I personally performed all aspects of the medical decision making for this encounter. I have reviewed and verified this documentation and it accurately reflects our care and have added a separate note to reflect my clinical impression. Patient returns for a follow up visit after proctectomy with ileocolonic anastomosis. In the interim, she reports left flank pain radiating to left leg and some rectal pressure. On exam, she appears comfortabel without distress. BP 121/58 Pulse 73 Temp 97.2 F (36.2 C) (Oral) Resp 18 Wt 98.7 kg (217 lb 11.2 oz) SpO2 99% BMI 35.15 kg/m Smoking Status Former Her abdominal exam is normal and her stoma is functional. I reassured the patient that rectal pain is expected after the surgery and should resolve with time. I am not certain as to the etiology of her flank / leg pain and will send a UA to rule out UTI. Patient will return to see me in 6 weeks and will report progress via [place]. documented in this encounter [facility] 03-30-2022 History and physical note HISTORY AND PHYSICAL EXAM Patient: Mona Singh Date: 03/30/2022 Attending Physician: MARBIN Dominique Chief Complaint: Chief Complaint Patient presents with New Patient Malignant neoplasm of rectum Clinical Care Team: Referring Provider: Markus Boone MB/MAGGI Primary Care Provider: Boone Loza History of Present Illness: Ms. Singh is a 41 y.o. female who presents for surgical evaluation of newly diagnosed low rectal well differentiated adenocarcinoma. MRI completed, cT2N1. She has met with radiation oncology locally and has appointment with Dr Jacques Boone (Oncology) in the next week. Colonoscopy was completed due to alternating diarrhea and constipation with rectal bleeding. Denies weight loss, rectal pain, although does endorse some rectal pressure at times. She recently was seen in [place] for genetic testing. Presents today with her . Previous tests: Complete colonoscopy:yes Serum CEA level: no CT Abdomen/Pelvis: yes CT Chest: yes Histology of biopsy: well-differentiated History of IBD:no Diagnosis made by:colonoscopy Indication(s) for study was (were): BRBPR Location of tumor was found to be: rectum Biopsy confirmed adenocarcinoma:yes The patient has the following complaints: Bleeding: yes Change in bowel habits: yes Weight loss: no Abdominal pain: no Rectal pain: no Abdominal surgeries: Family history: maternal grandfather maternal uncle No past medical history on file. Past Surgical History: Procedure Laterality Date NECK SURGERY cyst removed-benign No Known Allergies Current Outpatient Medications Medication Sig Dispense Refill Ferrous Fumarate (Iron) 18 MG Tab CR Fluticasone Propionate (FLONASE ALLERGY RELIEF NA) Multiple Vitamins-Minerals (WOMENS MULTIVITAMIN + COLLAGEN PO) terbinafine 250 MG tablet No current facility-administered medications for this visit. Social History Socioeconomic History Marital status: Spouse name: Not on file Number of children: Not on file Years of education: Not on file Highest education level: Not on file Occupational History Not on file Tobacco Use Smoking status: Former Smoker Types: Cigarettes Smokeless tobacco: Former User Tobacco comment: I quit about 15 years ago Vaping Use Vaping Use: Former Substance and Sexual Activity Alcohol use: Yes Comment: Only occasionally Drug use: Never Sexual activity: Yes Partners: Male control/protection: Male Sterilization Other Topics Concern Occupational Exposure No Hobby Hazards No Social History Narrative Not on file Social Determinants of Health Financial Resource Strain: Not on file Food Insecurity: Not on file Transportation Needs: Not on file Physical Activity: Not on file Stress: Not on file Social Connections: Not on file Intimate Partner Violence: Not on file Housing Stability: Not on file Family History Problem Relation Age of Onset Lung Cancer Mother Colorectal Cancer Maternal Grandfather Ovarian Cancer Maternal Grandmother Diabetes Paternal Grandfather Lung Cancer Paternal Grandmother Colorectal Cancer Maternal Uncle Ovarian Cancer Paternal Aunt Review of Systems: Constitutional: Negative for fever, significant change in weight, or fatigue. HENT: Negative for congestion or sore throat Cardiovascular: Negative for chest pain, palpitations and leg swelling. Respiratory: Negative for cough or shortness of breath Gastrointestinal: Negative for nausea, vomiting, diarrhea, constipation or abdominal pain Genitourinary: Negative for urinary frequency, urgency, hematuria, or dysuria. Musculoskeletal: Negative for myalgias, joint pain Neurological: Negative for dizziness, tingling, focal weakness and headaches. Psychiatric: Negative for depression and memory loss. Physical Exam: Vitals: BP 111/58 Pulse 83 Temp 97.5 F (36.4 C) (Infrared) Resp 18 Ht 1.7 m (5' 6.93 ) Wt 96.4 kg (212 lb 9.6 oz) SpO2 96% BMI 33.37 kg/m Smoking Status Former Smoker Body mass index is 33.37 kg/m . General: Alert, well appearing, and in no distress and oriented to person, place, and time Cardiac: Normal rate, regular rhythm Lungs: Equal chest rise, no audible wheezing, normal effort, on room air Extremities: Pulses normal, no edema Skin : No rash, warm and dry Neurologic: No focal deficits, alert & oriented X 3 Psychiatric: Thought and mood appropriate Abdomen: Soft, non-tender without organomegaly Anus: normal Digital: palpable mass anterior 5 cm from anal verge Data Review: Procedures: Pathology: 03/02/2022 Assessment/Plan Ms. Singh is a 41 y.o. female with newly diagnosed low rectal adenocarcinoma Plan: Continue to follow with Med Onc/Rad Onc Genetics workup pending. Asked to message the office when results are completed Return to clinic for re-evaluation for surgical intervention after JEREMY completed KIP Tinajero [facility] 03-30-2022 History and physical note I saw and evaluated the patient with HAT COPYIST. I personally reviewed the chart / imaging studies and provided a substantive portion of the care for this patient. I personally performed all aspects of the medical decision making for this encounter. I have reviewed and verified this documentation and it accurately reflects our care and have added a separate note to reflect my clinical impression. Mona Singh was referred to our office for evaluation and treatment of recently discovered T2N1 rectal cancer. Patient reports a strong family history of colorectal malignancies and is currently being evaluated by genetics. On exam, she appears coverable without distress. BP 111/58 Pulse 83 Temp 97.5 F (36.4 C) (Infrared) Resp 18 Ht 1.7 m (5' 6.93 ) Wt 96.4 kg (212 lb 9.6 oz) SpO2 96% BMI 33.37 kg/m Smoking Status Former Smoker Her abdominal exam is normal. Digital rectal exam reveals an anteriorly located firm, mobile lesion, about 4 cm from anal verge. We discussed treatment options at length. I would favor short course radiation followed by neoadjuvant chemotherapy and then a minimally invasive ultralow anterior resection. Plan was discussed at length with the patient. [facility] Work Phone: 03-30-2022 History and physical note HISTORY AND PHYSICAL EXAM Patient: Mona Singh Date: 03/30/2022 Attending Physician: MARBIN Dominique Chief Complaint: Chief Complaint Patient presents with New Patient Malignant neoplasm of rectum Clinical Care Team: Referring Provider: Markus Boone MB/MAGGI Primary Care Provider: Boone Loza History of Present Illness: Ms. Singh is a 41 y.o. female who presents for surgical evaluation of newly diagnosed low rectal well differentiated adenocarcinoma. MRI completed, cT2N1. She has met with radiation oncology locally and has appointment with Dr Jacques Boone (Oncology) in the next week. Colonoscopy was completed due to alternating diarrhea and constipation with rectal bleeding. Denies weight loss, rectal pain, although does endorse some rectal pressure at times. She recently was seen in [place] for genetic testing. Presents today with her . Previous tests: Complete colonoscopy:yes Serum CEA level: no CT Abdomen/Pelvis: yes CT Chest: yes Histology of biopsy: well-differentiated History of IBD:no Diagnosis made by:colonoscopy Indication(s) for study was (were): BRBPR Location of tumor was found to be: rectum Biopsy confirmed adenocarcinoma:yes The patient has the following complaints: Bleeding: yes Change in bowel habits: yes Weight loss: no Abdominal pain: no Rectal pain: no Abdominal surgeries: Family history: maternal grandfather maternal uncle No past medical history on file. Past Surgical History: Procedure Laterality Date NECK SURGERY cyst removed-benign No Known Allergies Current Outpatient Medications Medication Sig Dispense Refill Ferrous Fumarate (Iron) 18 MG Tab CR Fluticasone Propionate (FLONASE ALLERGY RELIEF NA) Multiple Vitamins-Minerals (WOMENS MULTIVITAMIN + COLLAGEN PO) terbinafine 250 MG tablet No current facility-administered medications for this visit. Social History Socioeconomic History Marital status: Spouse name: Not on file Number of children: Not on file Years of education: Not on file Highest education level: Not on file Occupational History Not on file Tobacco Use Smoking status: Former Smoker Types: Cigarettes Smokeless tobacco: Former User Tobacco comment: I quit about 15 years ago Vaping Use Vaping Use: Former Substance and Sexual Activity Alcohol use: Yes Comment: Only occasionally Drug use: Never Sexual activity: Yes Partners: Male control/protection: Male Sterilization Other Topics Concern Occupational Exposure No Hobby Hazards No Social History Narrative Not on file Social Determinants of Health Financial Resource Strain: Not on file Food Insecurity: Not on file Transportation Needs: Not on file Physical Activity: Not on file Stress: Not on file Social Connections: Not on file Intimate Partner Violence: Not on file Housing Stability: Not on file Family History Problem Relation Age of Onset Lung Cancer Mother Colorectal Cancer Maternal Grandfather Ovarian Cancer Maternal Grandmother Diabetes Paternal Grandfather Lung Cancer Paternal Grandmother Colorectal Cancer Maternal Uncle Ovarian Cancer Paternal Aunt Review of Systems: Constitutional: Negative for fever, significant change in weight, or fatigue. HENT: Negative for congestion or sore throat Cardiovascular: Negative for chest pain, palpitations and leg swelling. Respiratory: Negative for cough or shortness of breath Gastrointestinal: Negative for nausea, vomiting, diarrhea, constipation or abdominal pain Genitourinary: Negative for urinary frequency, urgency, hematuria, or dysuria. Musculoskeletal: Negative for myalgias, joint pain Neurological: Negative for dizziness, tingling, focal weakness and headaches. Psychiatric: Negative for depression and memory loss. Physical Exam: Vitals: BP 111/58 Pulse 83 Temp 97.5 F (36.4 C) (Infrared) Resp 18 Ht 1.7 m (5' 6.93 ) Wt 96.4 kg (212 lb 9.6 oz) SpO2 96% BMI 33.37 kg/m Smoking Status Former Smoker Body mass index is 33.37 kg/m . General: Alert, well appearing, and in no distress and oriented to person, place, and time Cardiac: Normal rate, regular rhythm Lungs: Equal chest rise, no audible wheezing, normal effort, on room air Extremities: Pulses normal, no edema Skin : No rash, warm and dry Neurologic: No focal deficits, alert & oriented X 3 Psychiatric: Thought and mood appropriate Abdomen: Soft, non-tender without organomegaly Anus: normal Digital: palpable mass anterior 5 cm from anal verge Data Review: Procedures: Pathology: 03/02/2022 Assessment/Plan Ms. Singh is a 41 y.o. female with newly diagnosed low rectal adenocarcinoma Plan: Continue to follow with Med Onc/Rad Onc Genetics workup pending. Asked to message the office when results are completed Return to clinic for re-evaluation for surgical intervention after JEREMY completed KIP Tinajero I saw and evaluated the patient with HAT COPYIST. I personally reviewed the chart / imaging studies and provided a substantive portion of the care for this patient. I personally performed all aspects of the medical decision making for this encounter. I have reviewed and verified this documentation and it accurately reflects our care and have added a separate note to reflect my clinical impression. Mona Singh was referred to our office for evaluation and treatment of recently discovered T2N1 rectal cancer. Patient reports a strong family history of colorectal malignancies and is currently being evaluated by genetics. On exam, she appears coverable without distress. BP 111/58 Pulse 83 Temp 97.5 F (36.4 C) (Infrared) Resp 18 Ht 1.7 m (5' 6.93 ) Wt 96.4 kg (212 lb 9.6 oz) SpO2 96% BMI 33.37 kg/m Smoking Status Former Smoker Her abdominal exam is normal. Digital rectal exam reveals an anteriorly located firm, mobile lesion, about 4 cm from anal verge. We discussed treatment options at length. I would favor short course radiation followed by neoadjuvant chemotherapy and then a minimally invasive ultralow anterior resection. Plan was discussed at length with the patient. documented in this encounter [facility] 03-30-2022 Instructions KIP Tinajero - 03/30/2022 9:30 AM EDT Call to schedule an appointment with Dr. Cooper when you are getting near the end of your treatment documented in this encounter [facility] Diagnosis Left flank pain- Primary Abdominal pain, unspecified site [facility] Diagnosis Ostomy nurse consultation- Primary [facility] Diagnosis Rectal cancer- Primary Malignant neoplasm of rectum Rectal adenocarcinoma Malignant neoplasm of rectum Attention to ileostomy [facility] Diagnosis Rectal adenocarcinoma- Primary Malignant neoplasm of rectum [facility] (Routine) Specialty Diagnoses / Procedures Referred By Nicky dotson Referred To Contact GIOVANI Rodriges [address] [place] [phone] Referral ID Status Reason Start Date Expiration Date Visits Re quested Visits Authorized * (Routine) - New Request Specialty Diagnoses / Procedures Referred By Nicky dotson Referred To Contact Procedures PLATELET MONITORING PER PROTOCOL Fabby Cooper MBBS [address] [phone] Referral ID Status Reason Start Date Expiration Date V isits Requested Visits Authorized [id number] New Request 02/03/2023 02/28/2024 1 1 * (Routine) - New Request Specialty Diagnoses / Procedures Referred By Contac t Referred To Contact Procedures DVT/VTE RISK ASSESSMENT Fabby Cooper MBBS [address] [address] Referral ID Status Reason Start Date Expiration Date V isits Requested Visits Authorized [id number] New Request 02/03/2023 02/28/2024 1 1 [facility] Summary Purpose Family History No Family History Records FoundNo Family History Records Found Advance Directives No Advanced Directives Records FoundLatest Code Status on File Code Status Date Activated Date Inactivated Comments Full Code 10/07/2022 8:21 AM 10/07/2022 7:43 PM Latest Code Status on File Code Status Date Activated Date Inactivated Comments Full Code 02/03/2023 7:53 AM 02/03/2023 5:23 PM Code Status History Code Status Date Activated Date Inactivated Comments Full Code 10/07/2022 8:21 AM 10/07/2022 7:43 PM Latest Code Status on File Code Status Date Activated Date Inactivated Comments Full Code 02/03/2023 7:53 AM 02/03/2023 5:23 PM Code Status History Code Status Date Activated Date Inactivated Comments Full Code 10/07/2022 8:21 AM 10/07/2022 7:43 PM Additional Source Comments INFORMATION SOURCE (unrecogn ized section and content) DATE CREATED AUTHOR AUTHOR'S ORGANIZ ATION 05/28/2023 [facility] Reason for Visit (unrecogniz ed section and content) Specialty Diagnoses / Procedures Referred By Contac t Referred To Contact Colon & Rectal Surgery Diagnoses Malignant neoplasm of rectum Prah, Markus, MB/MAGGI [address] [place] [address] [facility] [address] [place] [address] Referral ID Status Reason Start Date Expiration Date V isits Requested Visits Authorized [id number] Pending Review 03/14/2022 04/08/2023 1 1 Reason Comments Post Op Visit Reason Comments Patient Education leakage Specialty Diagnoses / Procedures Referred By Nicky dotson Referred To Contact Diagnoses Rectal adenocarcinoma Rectal adenocarcinoma [C20] Procedures IA CLOSE ENTEROSTOMY LOOP ILEOSTOMY CLOSURE Fabby Cooper MBBS [address] [place] [address] [facility] [address] [place] [address] Referral ID Status Reason Start Date Expiration Date Visits Re quested Visits Authorized [id number] 1 1 Care Teams (unrecognized sec tion and content) Auger Machine Offbearer Relationship Specialty Start Date End Date Boone Loza DO [address] [place] [phone] PCP - General Family Medicine 03/30/22 Markus Boone MB/MAGGI [address] [place] [address] Oncologist Hematology 03/16/22 Jana Figueredo, RN Registered Nurse 03/16/22 Luz Richardson, CONCRETE WORKER-ROAD ROLLER ENGINEER [address] [facility] [address] [place] [address] Oncologist Certified Nurse Practitioner 08/17/22 Bryan Reyes, DO [address] [facility] [address] [place] [phone] Radiation Oncologist Radiation Oncology 08/17/22 Jeannine Dominguez, windows admin 10/11/22 Fabby Cooper MBBS [address] [place] [address] Colon Rectal Surgeon Colon And Rectal Surgery 10/13/22 Auger Machine Offbearer Relationship Specialty Start Date End Date Boone Loza DO [address] [place] [phone] PCP - General Family Medicine 03/30/22 Markus Boone MB/CHB [address] [place] [address] Oncologist Hematology 03/16/22 Jana Figueredo, RN Registered Nurse 03/16/22 Luz Richardson, CONCRETE WORKER-ROAD ROLLER ENGINEER [address] [place] [address] Oncologist Certified Nurse Practitioner 08/17/22 Bryan Reyes DO [address] [facility] [address] [place] [address] Radiation Oncologist Radiation Oncology 08/17/22 Jeannine Dominguez, windows admin 10/11/22 Fabby Cooper MBBS [address] [facility] [address] [place] [address] Colon Rectal Surgeon Colon And Rectal Surgery 10/13/22 Auger Machine Offbearer Relationship Specialty Start Date End Date Boone Loza DO [address] [place] [phone] PCP - General Family Medicine 03/30/22 Markus Boone MB/CHB [address] [place], [place] [phone] Oncologist Hematology 03/16/22 Jana Figueredo, RN Registered Nurse 03/16/22 Luz Richardson, CONCRETE WORKER-ROAD ROLLER ENGINEER [address] [place], [place] [phone] Oncologist Certified Nurse Practitioner 08/17/22 Bryan Reyes DO [address] [facility] [address] [place] [phone] Radiation Oncologist Radiation Oncology 08/17/22 Fabby Cooper MBBS [address] [place] [address] Colon Rectal Surgeon Colon And Rectal Surgery 10/13/22 Auger Machine Offbearer Relationship Specialty Start Date End Date Boone Loza, DO [address] [place] [phone] PCP - General Family Medicine 03/30/22 Markus Boone MB/MAGGI [address] [place], [place] [address] Oncologist Hematology 03/16/22 Luz Richardson, CONCRETE WORKER-ROAD ROLLER ENGINEER [address] [place], [place] [phone] Oncologist Certified Nurse Practitioner 08/17/22 Bryan Reyes, DO [address] [facility] [address] [place] [address] Radiation Oncologist Radiation Oncology 08/17/22 Fabby Cooper MBBS [address] [facility] [address] [place] [address] Colon Rectal Surgeon Colon And Rectal Surgery 10/13/22 Zoila Pastrana, ASHANTI Registered Nurse 02/06/23 Scheduled Active and Recently Administ ered Medications (unrecognized section and content) Continuous Medication Order 02/03/2023 02/04/2023 02/05/2023 Lactated ringers IV solution (CANCELED) Intravenous, at 100 mL/hr, CONTINUOUS, Starting on Mon02/03/23 at 1330, Until Mon02/05/23 at 0529, Post-op/Post-Proc 1325 ($$New Bag$$ - Provider: Brigitte Desai RN)1739 (Rate/Dose Verify - Provider: Kate Howell RN)2122 (Paused - Provider: Jt Cardona RN)2126 (Restarted - Provider: Jt Cardona RN)2302 (Rate/Dose Verify - Provider: Jt Cardona RN) 0005 (Rate/Dose Verify - Provider: Jt Cardona RN)0039 (Rate/Dose Verify - Provider: Jt Cardona RN)0630 (Rate/Dose Verify - Provider: Jt Cardona RN)0724 (Paused - Provider: Kimmie Andrews RN)0729 (Restarted - Provider: Kimmie Andrews RN)0802 (Rate/Dose Verify - Provider: Kimmie Andrews RN)1000 (Rate/Dose Verify - Provider: Kimmie Andrews RN)1101 (Rate/Dose Verify - Provider: Kimmie Andrews RN)1136 (Rate/Dose Verify - Provider: Kimmie Andrews RN)1201 (Paused - Provider: Kimmie Andrews RN)1213 (Restarted - Provider: Kimmie Andrews RN)1447 (Rate/Dose Verify - Provider: Kimmie Andrews RN)2120 (Rate/Dose Verify - Provider: Yolanda Weeks RN)2200 ($$New Bag$$ - Provider: Yolanda Weeks RN)2225 (Rate/Dose Verify - Provider: Yolanda Weeks RN) 0049 (Rate/Dose Verify - Provider: Yolanda Weeks RN)0111 (Rate/Dose Verify - Provider: Yolanda Weeks RN)0116 (Stopped - Provider: Yolanda Weeks RN)0755 (Stopped - Provider: Perry Castaneda RN) Sodium chloride 0.9% IV solution (CANCELED) Intravenous, at 50 mL/hr, CONTINUOUS, Starting on Mon02/03/23 at 0800, Until Mon02/03/23 at 1712, Pre-op/Pre-Proc 0933 ($$New Bag$$ - Provider: Carlyn Ayers RN) PRN Medication Order 02/03/2023 02/04/2023 02/05/2023 cefTRIAXone (ROCEPHIN) 2 g in dextrose 50mL premix IVPB (COMPLETED) 2 g, Intravenous, Administer over 30 Minutes, ACUTE CARE OCCUPATIONAL THERAPIST TO PROCEDURE, 1 dose, Starting on Mon02/03/23 at 0752, Until Discontinued, Surgical Prophylaxis, Initiate antibiotic administration 30-60 minutes prior to surgical incision and complete administration prior to surgical incision., Pre-op/Pre-Proc 1048 (Given - Provider: BARB Rosales) HYDROmorphone (DILAUDID) injection 0.5 mg (CANCELED) 0.5 mg, Intravenous, EVERY 10 MINUTES NEEDED, 8 doses, Starting on Mon02/03/23 at 1239, Until Mon02/03/23 at 1712, Moderate Pain, Severe Pain, May give a total of 4mg in PACU., Recovery 1313 (Given - Provider: Brigitte Desai RN)1328 (Given - Provider: Brigitte Desai RN)1432 (Given - Provider: Brigitte Desai RN) Melatonin tablet 6 mg 6 mg, Oral, DAILY AT BEDTIME NEEDED, Starting on Mon02/03/23 at 1723, Until 02/05/23 at 1812, Insomnia, Post-op/Post-Proc metroNIDAZOLE (FLAGYL) 500 mg in NaCl premix IVPB (COMPLETED) 500 mg, Intravenous, at 200 mL/hr, Administer over 30 Minutes, ACUTE CARE OCCUPATIONAL THERAPIST TO PROCEDURE, 1 dose, Starting on Mon02/03/23 at 0752, Until Discontinued, Surgical Prophylaxis, Initiate antibiotic administration 30-60 minutes prior to surgical incision and complete administration prior to surgical incision., Pre-op/Pre-Proc 1048 (Given - Provider: BARB Rosales) morphine (PF) 200 mcg in sodium chloride (PF) 0.9 % 1 ml (total volume) intrathecal injection (COMPLETED) 200 mcg, Intrathecal, ACUTE CARE OCCUPATIONAL THERAPIST TO PROCEDURE, 1 dose, Starting on Mon02/03/23 at 0821, Until Discontinued, Other, To be administered in arleen-op setting by anesthesia personnel or in the OR by attending physician for spinal procedures., To be administered in arleen-op setting by anesthesia personnel or by attending physician for spinal procedures. Intra Op/Intra-Proc, sign and hold., Intra-op/Intra-Proc 0857 (Given - Provider: Alexa Omalley MD - Comment: COnfirmed with Brendan/Janis) Ondansetron 4mg/2ml (ZOFRAN) injection 4 mg (COMPLETED) 4 mg, Intravenous, ONCE NEEDED, 1 dose, Starting on 02/03/23 at 1239, Until 02/03/23 at 2359, Nausea / Vomiting, FIRST line antiemetic, Do not administer within 6 hours of intra-operative dose., Recovery 1310 (Given - Provider: Brigitte Desai RN) Ondansetron 4mg/2ml (ZOFRAN) injection 4 mg 4 mg, Intravenous, EVERY 6 HOURS NEEDED, Starting on 02/04/23 at 1308, Until 02/05/23 at 1812, Nausea / Vomiting, 2nd Line Nausea / Vomiting, Post-op/Post-Proc oxyCODONE (ROXICODONE) tablet 5 mg(Linked Group 2) 5 mg, Oral, EVERY 4 HOURS NEEDED, Starting on 02/03/23 at 1723, Until 02/05/23 at 1722, Mild Pain, Moderate Pain, Severe Pain, Use as initial dose. Higher dose may be administered if lower dose was previously documented as ineffective and did not result in adverse effects (RR<10, decrease in level of consciousness)., Post-op/Post-Proc 0052 (Given - Provid er: Yolanda Weeks RN)0845 (Given - Provider: Perry Castnaeda RN)1541 (Given - Provider: Perry Castaneda RN) oxyCODONE HCl (ROXICODONE) tablet 10 mg(Linked Group 2) 10 mg, Oral, EVERY 4 HOURS NEEDED, Starting on 02/03/23 at 1723, Until 02/05/23 at 1722, Mild Pain, Moderate Pain, Severe Pain, Higher dose may be administered if lower dose was previously documented as ineffective and did not result in adverse effects (RR<10, decrease in level of consciousness). Decrease back to lower dose if patient has adverse effects, or no PRN used in previous 12 hours., Post-op/Post-Proc 0052 (See Alternativ e - Provider: Yolanda Weeks RN)0845 (See Alternative - Provider: Perry Castaneda RN)1541 (See Alternative - Provider: Perry Castaneda RN) Phenol (CHLORASEPTIC) 1.4 % oral spray 1 spray 1 spray, Mouth/Throat, NEEDED, Starting on Mon02/03/23 at 1723, Until Mon02/05/23 at 1812, Sore Throat, Patient may self-administer., Post-op/Post-Proc Prochlorperazine (COMPAZINE) injection 10 mg(Linked Group 3) 10 mg, Intravenous, EVERY 6 HOURS NEEDED, Starting on Mon02/03/23 at 1723, Until Mon02/05/23 at 1812, Nausea / Vomiting, moderate nausea and vomiting, 1st line (if NOT tolerating PO), For IV route: dilute dose with 10mL normal saline and give by slow IV push at a rate of 5mg/min. Maximum of 40mg/day., Post-op/Post-Proc Prochlorperazine (COMPAZINE) injection 5 mg (CANCELED) 5 mg, Intravenous, EVERY 1 HOUR NEEDED, 2 doses, Starting on Mon02/03/23 at 1239, Until Mon02/03/23 at 1712, Refractory Nausea Vomiting, SECOND line antiemetic, Do not administer within 6 hours of intra-operative dose. For IV route: dilute dose with 10mL normal saline and give by slow IV push at a rate of 5mg/min. Maximum of 40mg/day., Recovery 1339 (Given - Provider: Brigitte Desai RN) Prochlorperazine (COMPAZINE) tablet 10 mg(Linked Group 3) 10 mg, Oral, EVERY 6 HOURS NEEDED, Starting on Mon02/03/23 at 1723, Until Mon02/05/23 at 1812, Nausea / Vomiting, Refractory Nausea Vomiting, 1st line (if tolerating PO), Post-op/Post-Proc Sodium chloride 0.9 % irrigation (CANCELED) NEEDED, Starting on Mon02/03/23 at 1237, Until Mon02/03/23 at 1255, Intra-op/Intra-Proc 1237 (Given - Provider: MARBIN Dominique) Linked Groups Order Group 1: famotidine (PF) (PEPCID) injection 20 mgJump to med 20 mg, Intravenous, 2 TIMES DAILY, First dose on Mon02/03/23 at 1730, Until Discontinued
Convert to oral dose form when tolerating oral diet. Administer undiluted by slow IV push at a rate not to exceed 10mg/min.
Post-op/Post-Proc Or faMOTIdine (PEPCID) tablet 20 mgJump to med 20 mg, Oral, 2 TIMES DAILY, First dose on Mon02/03/23 at 1730, Until Discontinued, Post-op/Post-Proc Group 2: oxyCODONE (ROXICODONE) tablet 5 mgJump to med 5 mg, Oral, EVERY 4 HOURS NEEDED, Starting on Mon02/03/23 at 1723, Until Mon02/05/23 at 1722, Mild Pain, Moderate Pain, Severe Pain
Use as initial dose. Higher dose may be administered if lower dose was previously documented as ineffective and did not result in adverse effects (RR<10, decrease in level of consciousness).
Post-op/Post-Proc Or oxyCODONE HCl (ROXICODONE) tablet 10 mgJump to med 10 mg, Oral, EVERY 4 HOURS NEEDED, Starting on Mon02/03/23 at 1723, Until Mon02/05/23 at 1722, Mild Pain, Moderate Pain, Severe Pain
Higher dose may be administered if lower dose was previously documented as ineffective and did not result in adverse effects (RR<10, decrease in level of consciousness). Decrease back to lower dose if patient has adverse effects, or no PRN used in previous 12 hours.
Post-op/Post-Proc Group 3: Prochlorperazine (COMPAZINE) injection 10 mgJump to med 10 mg, Intravenous, EVERY 6 HOURS NEEDED, Starting on Mon02/03/23 at 1723, Until Mon02/05/23 at 1812, Nausea / Vomiting, moderate nausea and vomiting, 1st line (if NOT tolerating PO)
For IV route: dilute dose with 10mL normal saline and give by slow IV push at a rate of 5mg/min. Maximum of 40mg/day.
Post-op/Post-Proc Or Prochlorperazine (COMPAZINE) tablet 10 mgJump to med 10 mg, Oral, EVERY 6 HOURS NEEDED, Starting on 02/03/23 at 1723, Until 02/05/23 at 1812, Nausea / Vomiting, Refractory Nausea Vomiting, 1st line (if tolerating PO), Post-op/Post-Proc FOR RECORDS PERTAINING TO PATIENTS WHO ARE OR HAVE BEEN ENROLLED IN A CHEMICAL DEPENDENCY/SUBSTANCEABUSE PROGRAM, SOME INFORMATION MAY BE OMITTED. This clinical summary was aggregated from multiple sources. Caution should be exercised in using it in the provision of clinical care. This summary normalizes information from multiple sources, and as a consequence, information in this document may materially change the coding, format and clinical context of patient data. In addition, data may be omitted in some cases. CLINICAL DECISIONS SHOULD BE BASED ON THE PRIMARY CLINICAL RECORDS. [facility]. provides no warranty or guarantee of the accuracy or completeness of information in this document.
== END 2023-07-10 09:04 | disposition home or self-care (01) ==
PROVIDERS: Emergency Provider Emergency Medicine; PCP Family Medicine; Visit Provider Emergency Medicine
DX: U07.1 COVID-19 (principal); Z87.891 Personal history of nicotine dependence
CPT/HCPCS: 96372; 99282

== ENCOUNTER → 2023-08-28 | Outpatient (CLI) | payer OTHER, SELFPAY ==
--- NOTE | 2023-08-28 12:05 | RAD_ITS ---
INDICATION: SITZ day 3 EXAMINATION/TECHNIQUE: X-RAY - XR Abdomen 1 View COMPARISON: No relevant prior comparison study available FINDINGS: BOWEL GAS PATTERN: Non-obstructive. No bowel or stomach distention. 2 small metallic markers are seen in the right upper quadrant. FREE AIR: Not assessed on a single supine view. ORGANOMEGALY: Not seen. CALCIFICATIONS: Few pelvic calcifications likely due to phleboliths. LOWER CHEST: Not included on this exam. BONES AND SOFT TISSUES: No acute pathology. RAD/Abdomen Single View IMPRESSION: 1. Metallic markers are seen in the right upper quadrant. 2. Nonobstructive gas pattern. Electronically Signed: Carlos Gabriel MD at 11:55 EST ,
--- OUTSIDE RECORDS SUMMARY | 2023-08-28 12:15 | XMS RPT_ITS | CCD ---
Author Name Unknown Address [address] [place] [address] Organization [facility] Care Team Providers Care Byproducts Supervisor Name Role Phone LAKIA LIRA) Unavailable Unav ailable LAKIA LIRA) Unavailable Unav ailable LAKIA LIRA) Unavailable [facility]av ailable [facility]us TAY Unavailable Jana Figueredo RN Unavailable Unavailable Brown DO, Boone Primary Care Provider Paolo VILLEGAS/Markus TAY Unavailable [phone] Jana Figueredo RN Unavailable Unavailable Brown DO, Boone Primary Care Provider Debra URBAN PLANNING TEACHER-DIRECTOR DIGITAL STRATEGY, Luz R Unavailable Eric DO, Bryan A Unavailable Jeannine Dominguez RN Unavailable Unavailable Jennifer VILLEGASBS, Fabby G Unavailable [phone] [facility] BAKARI/Markus TAY Unavailable Jana Figueredo RN Unavailable Unavailable Brown DO, Boone R Primary Care Provider Formerly [facility] URBAN PLANNING TEACHER-DIRECTOR DIGITAL STRATEGY, Luz R Unavailable [phone] Eric DO, Bryan A Unavailable [phone] Jennifer ZAZUETA, Fabby G Unavailable Zoila [...] height 167.6 cm Fabby ZAZUETA Work Phone: [facility] 03-07-2023 08:18-0400 Body mass index (BMI) [Ratio] 30.67 kg/m2 Fabby ZAZUETA Work Phone: [facility] 03-07-2023 08:18-0400 Body temperature 97.59 [degF] Fabby ZAZUETA Work Phone: [facility] 03-07-2023 08:18-0400 Body weight 86.18 kg Fabby ZAZUETA Work Phone: [facility] 03-07-2023 08:18-0400 Diastolic blood pressure 55 mm[Hg] Fabby Jennifer MBBS Work Phone: [facility] 03-07-2023 08:18-0400 Heart rate 66 /min Fabby Jennifer MBBS Work Phone: [facility] 03-07-2023 08:18-0400 Respiratory rate 18 /min Fabby Jennifer MBBS Work Phone: [facility] 03-07-2023 08:18-0400 SaO2% (BldA) [Mass fraction] 100 % Fabby Jennifer MBBS Work Phone: [facility] 03-07-2023 08:18-0400 Systolic blood pressure 115 mm[Hg] Fabby Jennifer MBBS Work Phone: 0(717)595-846210 [place] [address] 02-05-2023 11:54-0400 Body temperature 98.1 [degF] Fabby Jennifer MBBS Work Phone: 2(123)398-332110 [place] [address] 02-05-2023 11:54-0400 Diastolic blood pressure 54 mm[Hg] Fabby Jennifer MBBS Work Phone: 8(873)009-375810 [place] [address] 02-05-2023 11:54-0400 Heart rate 68 /min Fabby Jennifer MBBS Work Phone: 5(272)291-393710 [place] [address] 02-05-2023 11:54-0400 Respiratory rate 14 /min Fabby Jennifer MBBS Work Phone: 3(922)368-441010 [place] [address] 02-05-2023 11:54-0400 SaO2% (BldA) [Mass fraction] 98 % Fabby Jennifer MBBS Work Phone: 3(064)045-682010 [place] [address] 02-05-2023 11:54-0400 Systolic blood pressure 108 mm[Hg] Fabby Jennifer MBBS Work Phone: 1(472)373-138110 [place] [address] 02-03-2023 17:24-0400 Body height 167.6 cm Fabby Jennifer MBBS Work Phone: 5(358)178-112544 [place] [address] 02-03-2023 17:24-0400 Body mass index (BMI) [Ratio] 31.15 kg/m2 Fabby Jennifer MBBS Work Phone: 5(909)102-271710 [place] [address] 02-03-2023 17:24-0400 Body weight 87.54 kg Fabby Jennifer MBBS Work Phone: 4(252)559-586010 [place] [address] 10-18-2022 12:05-0400 Body mass index (BMI) [Ratio] 35.15 kg/m2 Fabby Jennifer MBBS Work Phone: 8(490)667-651610 [place] [address] 10-18-2022 12:05-0400 Body temperature 97.2 [degF] Fabby Jennifer MBBS Work Phone: 7(011)662-540010 [place] [address] 10-18-2022 12:05-0400 Body weight 98.75 kg Fabby Jennifer MBBS Work Phone: 1(645)388-039710 [place] [address] 10-18-2022 12:05-0400 Diastolic blood pressure 58 mm[Hg] Fabby Jennifer MBBS Work Phone: 2(809)473-296110 [place] [address] 10-18-2022 12:05-0400 Heart rate 73 /min Fabby Jennifer MBBS Work Phone: 9(352)205-081110 [place] [address] 10-18-2022 12:05-0400 Respiratory rate 18 /min Fabby Jennifer MBBS Work Phone: 5(302)676-810210 [place] [address] 10-18-2022 12:05-0400 SaO2% (BldA) [Mass fraction] 99 % Fabby Jennifer MBBS Work Phone: 8(961)616-648010 [place] [address] 10-18-2022 12:05-0400 Systolic blood pressure 121 mm[Hg] Fabby Jennifer MBBS Work Phone: 4(015)664-693810 [place] [address] 03-30-2022 10:07-0400 Body height 170 cm Fabby Jennifer MBBS Work Phone: [facility] 03-30-2022 10:07-0400 Body mass index (BMI) [Ratio] 33.37 kg/m2 Fabby Jennifer MBBS Work Phone: [facility] 03-30-2022 10:07-0400 Body temperature 97.5 [degF] Fabby Jennifer MBBS Work Phone: [facility] 03-30-2022 10:07-0400 Body weight 96.44 kg Fabby Jennifer MBBS Work Phone: [facility] 03-30-2022 10:07-0400 Diastolic blood pressure 58 mm[Hg] Fabby Jennifer MBBS Work Phone: [facility] 03-30-2022 10:07-0400 Heart rate 83 /min Fabby Jennifer MBBS Work Phone: [facility] 03-30-2022 10:07-0400 Respiratory rate 18 /min Fabby Jennifer MBBS Work Phone: [facility] 03-30-2022 10:07-0400 SaO2% (BldA) [Mass fraction] 96 % Fabby Jennifer MBBS Work Phone: [facility] 03-30-2022 10:07-0400 Systolic blood pressure 111 mm[Hg] Fabby Jennifer MBBS Work Phone: [facility] Encounters Encounter Date Encounter Type Care Provider Facility Start: 03-07-2023 ambulatory BOONE LOZA [facility] y:[facility] Start: 03-07-2023 End: 03-07-2023 Postop follow up visit related to original px Fabby G Jennifer MBBS Work Phone: Division of [...] Colon & Rectal Surgery [address] [id number] Fabby Cooper MBBS [address] [address] Division of Colon & Rectal Surgery Start: 02-24-2023 Influenza vaccination INFLUENZA VACC INE (#1) [facility] Start: 11-22-2022 End: 11-22-2022 Patient encounter procedure 11/22/2022 Office Visit Colon & Rectal Surgery Fabby Cooper MBBS [address] [id number] Division of Colon & Rectal Surgery Start: 02-24-2022 Influenza vaccination INFLUENZA VACC INE (#1) [facility] Start: 2021 Fasting lipid profile LIPID SCREENIN G [facility] Start: 2021 Lipid panel LIPID SCREENING [facility] Start: 2021 Screening for malign ant neoplasm of breast MAMMOGRAM SCREENING DISCUSSION [facility] Start: 2021 Screening mammography MAMMOGRA M SCREENING DISCUSSION [facility] Start: 03-21-2021 COVID-19 VACCINE (3 - Booster for Pfizer series) COVID-19 VACCINE (3 - Booster for Pfizer series) [facility] Start: 2002 Screening for malign ant neoplasm of cervix CERVICAL CANCER SCREENING DISCUSSION [facility] Start: 2000 Third diphtheria, te tanus and acellular pertussis (DTaP) vaccination TDAP (ADULT) [facility] Start: 11-17-1999 Tetanus vaccination TETANUS [facility] Start: 1996 HIV screening HIV SCREENING DISCUSSION [facility] Start: 1981 Hepatitis C antibody , confirmatory test HEPATITIS C VIRUS SCREENING [facility] Start: 1981 Hepatitis C screening HEPATITI S C VIRUS SCREENING [facility] Start: 1981 Tetanus vaccination TETANUS [facility] SURG PATH REQUEST [facility] Immunizations Immunization Date Immunization Notes Care Provider Fa cility 06-03-2022 influenza virus vaccine, unspecified formulation Fabby ZAZUETA Work Phone: [facility] Payers Date Payer Category Payer Private Health Insurance [facility] [id number] 2021-Present [address] [address] [place] [address] [id number] 2021 Unknown [id number] 1981 Unknown [id number] 1981 Unknown [id number] .[id number] 1981 Unknown [id number] .[id number] 1981 Unknown [id number] ..[id number] 1981 Unknown [id number] .[id number] 1981 Unknown [id number] .[id number] 1981 Unknown [id number] 1981 Unknown [id number] Social History Date Type Detail Facility Start: 03-30-2022 End: 08-16-2022 Tobacco smoking status NHIS Ex-smoker [facility] History of tobacco use Cigarette Smoker O [facility] Start: 03-30-2022 End: 08-16-2022 Tobacco use and exposure Former smokeless tobacco user [facility] Start: 03-30-2022 End: 03-07-2023 Alcohol intake Current drinker of alcohol (finding) [facility] Start: 03-30-2022 History SDOH Alcohol Comment Only occasionally [facility] Start: 03-30-2022 End: 08-16-2022 Tobacco Comment I quit about 15 years ago [facility] Start: 1981 Sex Assigned At Not on file O [facility] History of tobacco use Current smoker [facility] Start: 09-28-2022 End: 02-03-2023 Exposure to SARS-CoV-2 (event) Not sure [facility] Start: 11-22-2022 End: 03-07-2023 History of Social function [facility] Start: 11-22-2022 End: 03-07-2023 Tobacco use panel [facility] Adolescent depressio n screening assessment 0 [facility] Goals Date Patient Goal Desired Activity /State [...] Yu MD documented in this encounter [facility] 02-05-2023 Plan of care note Problem: Patient Care Overview Goal: Plan of Care Review Outcome: Completed Goal: Individualization & Mutuality Outcome: Completed Goal: Discharge Needs Assessment Outcome: Completed Goal: Interdisciplinary Rounds/Family Conf [facility] Miscellaneous Notes Problem: Patient Care [...] and taken down to outpt pharmacy to slat pickler Rx. Then pt taken to main entrance [...] the entire case. 1256: Patient arrives in [facility] PACU from OR via gurney with side rails up x2 with HOB >30 degrees, accompanied by ACRNA: Trell Thao APRN-NICOLÁS Tank Operator: ISMAEL Uriostegui. Patient placed on monitors, VSS. [...] English for sign out. 1518: FYI MD Aadn pt. HR in 40s when sleeping. Asymptomatic. 1540: Called to give my number to the nurse receiving my patient. Will call back when ready for report. 1546: Updated family waiting room. 1555: Handoff to ASHANTI Young. 1642: Received report from ASHANTI Young. 1648: Report given to ASHANTI Love. 1651: Patient discharged from [facility] PACU per protocol. Patient transported via gurney with side rails up x2 with HOB>30 degrees to room 1212 by ASHANTI Briggs, Oji, CERAMIC TILE INSTALLER. Family called to patient's bedside. Mona Coburn Vijayaioana ([id number]) PRE OPERATIVE DIAGNOSIS Rectal adenocarcinoma [C20] POST [...] Anesthesiologist: Jade English MD; Kristi Cardona MD SENIOR TECHNICAL ANALYST: Trell Thao APRN-SENIOR TECHNICAL ANALYST Tank Operator: ISMAEL Uriostegui Dental Technician Apprentice Assisting: Alexa Omalley MD SURGICAL STAFF Insurance Counselor: Sonia Quintana RN Relief Insurance Counselor: Rody Goodman RN Relief Scrub: Jimena Adler Resident Assisting: Martita Moss MD Kersey Department Supervisor: Dick Hess COMPLICATIONS None ESTIMATED BLOOD LOSS [...] Pt has ileostomy. documented in this encounter [facility] 02-05-2023 Nurse Note Pt is being discharged at this time. Pt is AO x 4. Before discharge significant other performed dressing change and all questions were answered. Supplies were sent home with patient. PIV was removed per protocol and clean dry dressing applied. All personal belongings were gathered and taken upon discharge. Pt placed in wheelchair and taken down to outpt pharmacy to slat pickler Rx. Then pt taken to main entrance of hospital. End of care. [facility] 02-05-2023 Hospital course Narrative Discharge Summary [...] as label directs. Follow-up: MARBIN Dominique [address] [facility] [address] [facility] [phone] Follow up in 2 week(s) Upcoming Appointments (up to five)-Some appointments for Medical Center outpatient clinics or diagnostic testing locations are not displayed below Provider Department Dept Phone 03/07/2023 8:15 AM Fabby Cooper Division of Colon & Rectal Surgery Arrive at: Arrive to [facility] Registration [phone] documented in this encounter [facility] 02-04-2023 History of Presen t illness Narrative Summary: [facility] Transfer Note Discharge Planning for Home Health [...] loop ileostomy closure on 02/03/23. Services needed: Retirement Retirement Needs Will need old stoma site packed [...] and will be willing to work with [facility] to obtain education if there are complex teaching services needed for the patient. Physician following for home care orders / phone: Dr. Cooper / phone: [phone] Outpatient PCRM / phone: Jeannine Manuel RN / phone: [phone] oSnia RÍOS, RN, PCRM Phone #: [phone] COLORECTAL SURGERY PROGRESS NOTE 02/04/2023 1 Day [...] sign off at this time. Please call [phone] or page [phone] with any questions or concerns. Alexa Omalley MD Anesthesia PGY1 [facility] 8095 Surgery Post-Op Check Note Mona Singh [...] of needs and discharge planning. KANE Mckee [phone] documented in this encounter [facility] 02-03-2023 Nurse Note 7:54 PM, pt bladder scanned= 202ml, bladder scan-202ml. pt encouraged to drink and will attempt to void at 2200. Text page sent to dr. Ybarra to notify [facility] 02-03-2023 Surgery Postoperative evaluation and management [...] scrubbed and present throughout the entire case. [facility] 02-03-2023 Nurse Note 1555: Handoff received from ASHANTI Briggs. 1603: Attempted to call report to 12 Giovani RN, RN unavailable at this time. 1636: Attempted to call report to 12 Giovani RN, RN not answering phone at this time. 1641: Handoff given to ASHANTI Briggs. documented in this encounter [facility] 02-03-2023 Nurse Surgical operation note 1555: Handoff received from ASHANTI Briggs. 1603: Attempted to call report to 12 Giovani RN, RN unavailable at this time. 1636: Attempted to call report to 12 Giovani RN, RN not answering phone at this time. 1641: Handoff given to ASHANTI Briggs. [facility] 02-03-2023 Nurse Note 1256: Patient arrives in [facility] PACU from OR via gurney with side rails up x2 with HOB >30 degrees, accompanied by ACRNA: Trell Thao APRN-NICOLÁS Tank Operator: ISMAEL Uriostegui. Patient placed on monitors, VSS. [...] to ASHANTI Love. 1651: [facility]. Patient transported via gurney with side rails up x2 with HOB>30 degrees to room 1212 by ASHANTI Briggs, Oji, CERAMIC TILE INSTALLER. Family called to patient's bedside. [facility] 02-03-2023 Hospital Discharg e instructions Ruby Wolff RN - 02/03/2023 1:24 PM EDT COLORECTAL ADDITIONAL CONTACTS For Concerns During Weekend or Evening Hours: -If you have questions or concerns call and ask the dusting and brushing machine operator to page the residential driver superannuation clerk. Reminder: [facility] [employer] messaging goes unmonitored during evenings and weekends. Any concerns or questions during this time, please call using instructions above. Clinic Office Main Number: [phone] Hearing Consultant: Ruby Wolff ([facility]) SW: Megan Coronel ([facility]) ENTEROSTOMAL THERAPY RN + OSTOMY [...] questions or concerns call and ask the dusting and brushing machine operator to have the general surgery chief resident paged. Reminder: [employer] messaging goes unmonitored during evenings and weekends. Any concerns or questions during this time, please call using instructions above. Clinic Office Main Number: [phone] NOTIFY PHYSICIAN: SYMPTOMS WOUND INFECTION - Increase [...] through Care Everywhere.Pain and Pain Control ([facility]) (Thai)documented in this encounter [facility] 02-03-2023 Surgery Postoperative evaluation and management note Mona Singh ([id number]) PRE OPERATIVE DIAGNOSIS Rectal adenocarcinoma [C20] POST [...] Anesthesiologist: Jade English MD; Kristi Cardona MD SENIOR TECHNICAL ANALYST: Trell Thao APRN-SENIOR TECHNICAL ANALYST Tank Operator: ISMAEL Uriostegui Dental Technician Apprentice Assisting: Alexa Omalley MD SURGICAL STAFF Insurance Counselor: Sonia Quintana RN Relief Insurance Counselor: Rody Goodman RN Relief Scrub: Jimena Adler Resident Assisting: Martita Moss MD Kersey Department Supervisor: Dick Hess COMPLICATIONS None ESTIMATED BLOOD LOSS Minimal SPECIMENS see below ID Type Source Tests Collected by Time Destination 1 : Ileostomy Permanent SURG PATH SURG PATH REQUEST MARBIN Dominique 02/03/2023 [id number] Martita Moss MD February 03, 2023 12:59 PM [facility] 02-03-2023 History and physical note Mona [...] length. Will proceed with surgery as planned. [facility] Work Phone: 02-03-2023 History and physical note [...] surgery as planned. documented in this encounter [facility] 02-03-2023 Nurse Note Pt has history of chemotherapy (last tx ~August 2022) and radiation (last tx April 2022). Pt denies hx of seizure or stroke activity. [facility] History of Presen t illness Narrative Images from the original note were not included. WOC/ET Nursing Consult Note: Patient seen for leaking ileostomy. Wonder if convatec esteem [id number] will work? Needs v3 convexity so will order sample of another as well. documented in this encounter [facility] 10-18-2022 History of Presen t illness Narrative Images from the original note were not included. WOC/ET Nursing Consult Note: Patient seen for marlin removal. Deisy marlin removed with ease. Stoma retracted, multiple leaks at home. Placed deep convex alyssia 27251 with belt 4237 on. Peristomal skin dusted [...] I saw and evaluated the patient with CARDIOPULMONARY TECHNOLOGIST. I personally reviewed the chart / imaging [...] 6 weeks and will report progress via [employer]. documented [facility] this encounter [facility] [...] at times. She recently was seen in [place] for genetic testing. Presents today with her [...] surgical intervention after JEREMY completed KIP Tinajero [facility] 03-30-2022 History and physical note I saw and evaluated the patient with CARDIOPULMONARY TECHNOLOGIST. I personally reviewed the chart / imaging [...] was discussed at length with the patient. [facility] Work Phone: 03-30-2022 History and physical note [...] at times. She recently was seen in [place] for genetic testing. Presents today with her [...] I saw and evaluated the patient with CARDIOPULMONARY TECHNOLOGIST. I personally reviewed the chart / imaging [...] with the patient. documented in this encounter [facility] 03-30-2022 Instructions KIP Tinajero - 03/30/2022 9:30 AM EDT Call to schedule an appointment with Dr. Cooper when you are getting near the end of your treatment documented in this encounter [facility] documented in this encounter [facility] Diagnosis Left flank pain- Primary Abdominal pain, unspecified site documented [facility] Diagnosis Ostomy nurse consultation- Primary [facility] Diagnosis Rectal cancer- Primary Malignant neoplasm of rectum Rectal adenocarcinoma Malignant neoplasm of rectum Attention to ileostomy documented [facility] Diagnosis Rectal adenocarcinoma- Primary Malignant neoplasm of rectum documented [facility] this encounter [facility] for referral (narrative)* (Routine) Specialty Diagnoses / Procedures Referred By Nicky dotson Referred To Contact GIOVANI Rodriges [address] [place] [phone] Referral ID Status Reason Start Date Expiration Date Visits Re quested Visits Authorized * (Routine) - New Request Specialty Diagnoses / Procedures Referred By Nicky dotson Referred To Contact Procedures PLATELET MONITORING PER PROTOCOL Fabby Cooper MBBS [address] [address] Referral ID Status Reason Start Date Expiration Date V isits Requested Visits Authorized [id number] New Request 02/03/2023 02/28/2024 1 1 * (Routine) - New Request Specialty Diagnoses / Procedures Referred By Contac t Referred To Contact Procedures DVT/VTE RISK ASSESSMENT Fabby Cooper MBBS [address] [address] Referral ID Status Reason Start Date Expiration Date V isits Requested Visits Authorized [id number] New Request 02/03/2023 02/28/2024 1 1 [facility] Summary Purpose Family History No Family History [...] DATE CREATED AUTHOR AUTHOR'S ORGANIZ ATION 05/28/2023 [facility] Reason for Visit (unrecogniz ed section and content) Specialty Diagnoses / Procedures Referred By Contac t Referred To Contact Colon & Rectal Surgery Diagnoses Malignant neoplasm of rectum Prah, Markus, MB/MAGGI [address] [place] [address] [facility] [address] [place] [address] Referral ID Status Reason Start Date Expiration Date V isits Requested Visits Authorized [id number] Pending Review 03/14/2022 04/08/2023 1 1 Reason Comments Post Op Visit Reason Comments Patient Education leakage Specialty Diagnoses / Procedures Referred By Nicky dotson Referred To Contact Diagnoses Rectal adenocarcinoma Rectal adenocarcinoma [C20] Procedures IN CLOSE ENTEROSTOMY LOOP ILEOSTOMY CLOSURE Fabby Cooper MBBS [address] [place] [address] [facility] [address] [place] [address] Referral ID Status Reason Start Date Expiration Date Visits Re quested Visits Authorized [id number] 1 1 Care Teams (unrecognized sec tion and content) Byproducts Supervisor Relationship Specialty Start Date End Date Boone Loza DO [address] [place] [id number] PCP - General Family Medicine 03/30/22 Markus Boone MB/MAGGI [address] [place] [address] Oncologist Hematology 03/16/22 Jana Figueredo, RN Registered Nurse 03/16/22 Luz Richardson, URBAN PLANNING TEACHER-DIRECTOR DIGITAL STRATEGY [address] [facility] [address] [place] [address] Oncologist Certified Nurse Practitioner 08/17/22 Bryan Reyes, DO [address] [facility] [address] [place] [phone] Radiation Oncologist Radiation Oncology 08/17/22 Jeannine Dominguez, family support worker 10/11/22 Fabby Cooper MBBS [address] [place] [address] [place] [address] Colon Rectal Surgeon Colon And Rectal Surgery 10/13/22 Byproducts Supervisor Relationship Specialty Start Date End Date Boone Loza DO [address] [place] [phone] PCP - General Family Medicine 03/30/22 Markus Boone MB/CHB [address] [place] [address] Oncologist Hematology 03/16/22 Jana Figueredo, RN Registered Nurse 03/16/22 Luz Richardson, URBAN PLANNING TEACHER-DIRECTOR DIGITAL STRATEGY [address] [place] [address] Oncologist Certified Nurse Practitioner 08/17/22 Bryan Reyes DO [address] [facility] [address] [place] [address] Radiation Oncologist Radiation Oncology 08/17/22 Jeannine Dominguez, family support worker 10/11/22 Fabby Cooper MBBS [address] [facility] [address] [place] [address] Colon Rectal Surgeon Colon And Rectal Surgery 10/13/22 Byproducts Supervisor Relationship Specialty Start Date End Date Boone Loza DO [address] [place] [phone] PCP - General Family Medicine 03/30/22 Markus Boone MB/CHB [address] [place], [place] [id number] Oncologist Hematology 03/16/22 Jana Figueredo, RN Registered Nurse 03/16/22 Luz Richardson, URBAN PLANNING TEACHER-DIRECTOR DIGITAL STRATEGY [address] [place], [place] [phone] Oncologist Certified Nurse Practitioner 08/17/22 Bryan Reyes DO [address] [facility] [address] [place] [phone] Radiation Oncologist Radiation Oncology 08/17/22 Fabby Cooper MBBS [address] [place] [address] Colon Rectal Surgeon Colon And Rectal Surgery 10/13/22 Byproducts Supervisor Relationship Specialty Start Date End Date Boone Loza, DO [address] [place] [phone] PCP - General Family Medicine 03/30/22 Markus Boone MB/MAGGI [address] [place], [place] [id number] Oncologist Hematology 03/16/22 Luz Richardson, URBAN PLANNING TEACHER-DIRECTOR DIGITAL STRATEGY [address] [place], [place] [id number] Oncologist Certified Nurse Practitioner 08/17/22 Bryan Reyes, DO [address] [facility] [address] [place] [address] Radiation Oncologist Radiation Oncology 08/17/22 Fabby Cooper MBBS [address] [facility] [address] [place] [address] Colon Rectal Surgeon Colon And Rectal [...] Andrews RN)1136 (Rate/Dose Verify - Provider: Kimmie Adnrews RN)1201 (Paused - Provider: Kimmie Andrews RN)1213 [...] 2 g, Intravenous, Administer over 30 Minutes, CLINICAL LEADER TO PROCEDURE, 1 dose, Starting on Mon02/03/23 [...] at 200 mL/hr, Administer over 30 Minutes, CLINICAL LEADER TO PROCEDURE, 1 dose, Starting on Mon02/03/23 at 0752, Until Discontinued, Surgical Prophylaxis, Initiate antibiotic administration 30-60 minutes prior to surgical incision and complete administration prior to surgical incision., Pre-op/Pre-Proc 1048 (Given - Provider: BARB Rosales) morphine (PF) 200 mcg in sodium chloride (PF) 0.9 % 1 ml (total volume) intrathecal injection (COMPLETED) 200 mcg, Intrathecal, CLINICAL LEADER TO PROCEDURE, 1 dose, Starting on Mon02/03/23 [...] Yolanda Weeks RN)0845 (Given - Provider: Perry Castaneda RN)1541 (Given - Provider: Perry Castaneda RN) [...] BE BASED ON THE PRIMARY CLINICAL RECORDS. [facility]. provides no warranty or guarantee of the accuracy or completeness of information in this document.
== END | disposition home or self-care (01) ==
LOC: RAD 11:57
PROVIDERS: PCP Family Medicine; Referring Provider Internal Medicine Gastroenterology; Visit Provider Internal Medicine Gastroenterology
DX: K59.00 Constipation, unspecified (principal)
CPT/HCPCS: 74018

== ENCOUNTER → 2023-08-30 | Outpatient (CLI) | payer OTHER, SELFPAY ==
--- NOTE | 2023-08-30 12:45 | RAD_ITS ---
INDICATION: SITZ day 5 EXAMINATION/TECHNIQUE: X-RAY - XR Abdomen 1 View COMPARISON: No relevant prior comparison study available FINDINGS: BOWEL GAS PATTERN: Non-obstructive. No bowel or stomach distention. FREE AIR: Not assessed on a single supine view. ORGANOMEGALY: Not seen. CALCIFICATIONS: Pelvic calcifications likely due to phleboliths. LOWER CHEST: No acute pathology. BONES AND SOFT TISSUES: No acute pathology. RAD/Abdomen Single View IMPRESSION: Non-obstructive bowel gas pattern. Electronically Signed: Carlos Gabriel MD at 14:43 EST ,
== END | disposition home or self-care (01) ==
LOC: RAD 12:41
PROVIDERS: PCP Family Medicine; Referring Provider Internal Medicine Gastroenterology; Visit Provider Internal Medicine Gastroenterology
DX: K59.00 Constipation, unspecified (principal)
CPT/HCPCS: 74018

== ENCOUNTER → 2023-09-27 | Outpatient (CLI) | payer OTHER, SELFPAY ==
--- NOTE | 2023-09-27 07:10 | CT_ITS ---
STUDY: CT BRAIN WITH AND WITHOUT CONTRAST REASON FOR EXAM: Female, 42 years old. Migraines RADIATION DOSAGE (If Supplied By Facility): CTDIvol = ( 44.99 ) mGy, DLP = ( 1614.72 ) mGycm TECHNIQUE: Transaxial CT imaging of the brain was performed pre and post contrast administration. The examination was performed with intravenous administration of IV 50mL Isovue-370. Individualized dose optimization techniques were used for this CT. COMPARISON: None. FINDINGS: Normal soft tissue structures. Normal calvarium. Normal size ventricles and extra-axial spaces for the patient''s age. Normal white matter tracts of the cerebral hemispheres. Normal basal ganglia and thalami. Normal brainstem. Normal cerebellum. There is no intracranial hemorrhage. There are no findings of an acute ischemic infarction. Normal visualized paranasal sinuses. CT/Brain/Head W/WO Contrast IMPRESSION: Normal unenhanced and enhanced CT scan of the brain. Electronically Signed: Malcolm Sargent MD at 8:00 EDT ,
== END | disposition home or self-care (01) ==
LOC: CT 07:10
PROVIDERS: PCP Family Medicine; Referring Provider Nurse Practitioner; Visit Provider Nurse Practitioner
DX: G43.909 Migraine, unspecified, not intractable, without status migrainosus (principal)
CPT/HCPCS: 70470; Q9967

== ENCOUNTER → 2023-11-09 | Outpatient (CLI) | payer OTHER, SELFPAY ==
--- NOTE | 2023-11-09 14:32 | CT_ITS ---
STUDY: CT ABDOMEN AND PELVIS WITH CONTRAST REASON FOR EXAM: Female, 42 years old. MONITOR RECTAL CA. Prior radiation and chemotherapy. RADIATION DOSAGE (If Supplied By Facility): CTDIvol = ( 12.53 ) mGy, DLP = ( 822.22 ) mGycm TECHNIQUE: Transaxial images were obtained from the dome of the diaphragm to the symphysis pubis without oral contrast. IV 100mL Isovue-300 was administered. Sagittal and coronal images were reconstructed. Individualized dose optimization techniques were used for this CT. COMPARISON: Comparison is made with prior study April 11, 2023. FINDINGS: The visualized lung bases are unremarkable. The visualized portions of the heart are within normal limits. There is decreased attenuation of the liver consistent with steatosis. Stable 1 cm cyst in the central upper aspect of the liver. Subcentimeter cyst in the right lobe of the liver. Normal gallbladder and extrahepatic biliary system. Normal spleen. Normal pancreas. Normal bilateral adrenal glands. Normal right kidney. Normal left kidney. Normal visualized stomach. Normal small intestine. A surgical anastomosis is seen at the level of the rectum. Moderate amount of fecal material is seen in the colon. Stable mild presacral soft tissue prominence. The appendix is visualized and appears normal. Normal abdominal aorta. Normal inferior vena cava. Normal retroperitoneum. Normal urinary bladder. Normal abdominal wall. Disc space narrowing and degeneration at the L5-S1 level. CT/Abdomen/Pelvis W IV Cont ONLY IMPRESSION: Status post anastomosis and resection at the level of the rectosigmoid colon. Stable hepatic cyst. Electronically Signed: Malcolm Sargent MD at 14:52 EDT ,
[2023-11-09 14:33] LABS: Absolute Lymphocyte Count 1.45 X10^3/uL (0.83-4.51); Absolute Neutrophil Count 2.4 X10^3/uL (2.0-7.7); Basophil# 0.03 X10^3/uL; Basophil% 0.7 % (0-1); Eosinophil# 0.07 X10^3/uL; Eosinophils% 1.6 % (0-5); Hematocrit 35.3 % (37-47); Hemoglobin 11.8 g/dL (12.0-15.0); Lymphocyte # 1.45 X10^3/ul (0.83-4.51); Mean Corp Hgb Conc 33.4 g/dL (32-36); Mean Corpuscular Hgb 31.6 pg (27.0-32.0); Mean Corpuscular Volume 94.6 fL (81-99); Mean Platelet Vol. 8.6 fl (6.2-12.0); Monocyte# 0.32 X10^3/uL; Monocyte% 7.5 % (0-10); NRBC Flagged by Analyzer 0 % (0-5); Neutrophil # 2.39 X10^3/uL (2.7-7.7); Platelet Count 255 K/mm3 (150-450); RBC Distribution Width CV 12.8 % (11.6-14.6); RBC Distribution Width SD 44.4 fl (35.1-43.9); Red Blood Count 3.73 M/mm3 (4.2-5.4); White Blood Count 4.3 K/mm3 (4.4-11.0)
[2023-11-09 15:02] LABS: ALB/GLOB Ratio 1.2 RATIO (0.9-2.4); AST(SGOT) 21 U/L (15-37); Alanine Aminotransfer ALT/SGPT 17 U/L (13-56); Alkaline Phosphatase 95 U/L (45-117); Anion Gap 2 (5-15); BUN 12 mg/dL (7-18); BUN/Creat Ratio 13.7 RATIO (10-20); Calcium,Total 9.6 mg/dL (8.5-10.1); Chloride 104 mmol/L (98-107); Creatinine, Serum 0.87 mg/dL (0.55-1.02); EST Glomerular Filtration Rate 76 mL/min (>60); Est Glom Filt Rate - Afr Amer 91 mL/min (>60); Globulin 3.3 g/dL (2.2-4.2); Glucose 88 mg/dL (74-106); LDH 169 U/L (84-246); Potassium 4.2 mmol/L (3.5-5.1); Protein, Total 7.3 g/dL (6.4-8.2); Sodium Level 136 mmol/L (136-145)
[2023-11-11 04:07] LABS: Carcinoembryonic Antigen 0.9 ng/mL (0.0-4.7)
== END | disposition home or self-care (01) ==
LOC: CT 14:07
PROVIDERS: PCP Family Medicine; Referring Provider Internal Medicine Medical Oncology; Visit Provider Internal Medicine Medical Oncology
DX: C20 Malignant neoplasm of rectum (principal)
CPT/HCPCS: 36415; 74177; 80053; 82378; 83615; 85025; Q9967

== ENCOUNTER 2024-01-29 15:21 | Outpatient (RCR) | payer OTHER, SELFPAY | END 2024-02-24 23:59 | LOC: NS 15:21 | PROVIDERS: PCP Family Medicine; Referring Provider Family Medicine; Visit Provider Family Medicine | DX: Z71.3 Dietary counseling and surveillance (principal); K58.9 Irritable bowel syndrome, unspecified; Z85.048 Personal history of other malignant neoplasm of rectum, rectosigmoid junction, and anus | CPT/HCPCS: 97802 ==

== ENCOUNTER → 2024-03-05 | Outpatient (CLI) | payer OTHER, SELFPAY ==
[2024-03-05 15:47] LABS: Absolute Lymphocyte Count 1.57 X10^3/uL (0.83-4.51); Absolute Neutrophil Count 2.8 X10^3/uL (2.0-7.7); Basophil# 0.02 X10^3/uL; Basophil% 0.4 % (0-1); Eosinophil# 0.07 X10^3/uL; Eosinophils% 1.5 % (0-5); Hematocrit 35.2 % (37-47); Hemoglobin 11.6 g/dL (12.0-15.0); Lymphocyte # 1.57 X10^3/ul (0.83-4.51); Lymphocyte % 32.6 % (19-41); Mean Corpuscular Hgb 31.4 pg (27.0-32.0); Mean Corpuscular Volume 95.4 fL (81-99); Mean Platelet Vol. 9.6 fl (6.2-12.0); Monocyte# 0.33 X10^3/uL; Monocyte% 6.9 % (0-10); NRBC Flagged by Analyzer 0 % (0-5); Neutrophil # 2.82 X10^3/uL (2.7-7.7); Neutrophil % 58.6 % (47-70); Platelet Count 264 K/mm3 (150-450); RBC Distribution Width CV 12.8 % (11.6-14.6); Red Blood Count 3.69 M/mm3 (4.2-5.4); White Blood Count 4.8 K/mm3 (4.4-11.0)
[2024-03-05 16:14] LABS: ALB/GLOB Ratio 1.3 RATIO (0.9-2.4); AST(SGOT) 14 U/L (15-37); Alanine Aminotransfer ALT/SGPT 17 U/L (13-56); Alkaline Phosphatase 80 U/L (45-117); Anion Gap 6 (5-15); BUN 16 mg/dL (7-18); BUN/Creat Ratio 22.6 RATIO (10-20); Calcium,Total 9.5 mg/dL (8.5-10.1); Chloride 104 mmol/L (98-107); Creatinine, Serum 0.71 mg/dL (0.55-1.02); EST Glomerular Filtration Rate 96 mL/min (>60); Est Glom Filt Rate - Afr Amer 116 mL/min (>60); Glucose 87 mg/dL (74-106); Potassium 3.6 mmol/L (3.5-5.1); Sodium Level 138 mmol/L (136-145)
== END | disposition home or self-care (01) ==
LOC: LAB 14:42
PROVIDERS: Student in an Organized Health Care Education/Training Program; PCP Family Medicine; Referring Provider Internal Medicine Gastroenterology; Visit Provider Internal Medicine Gastroenterology
DX: Z85.048 Personal history of other malignant neoplasm of rectum, rectosigmoid junction, and anus (principal)
CPT/HCPCS: 36415; 80053; 85025

== ENCOUNTER → 2024-03-12 | Outpatient (CLI) | payer OTHER, SELFPAY ==
[2024-03-15 19:07] LABS: Calprotectin, Stool 95 ug/g (0-120)
[2024-03-16 00:07] LABS: Pancreatic Elastase, Fecal > 800 (>200)
== END | disposition home or self-care (01) ==
LOC: LABSPEC 13:14
PROVIDERS: PCP Family Medicine; Referring Provider Student in an Organized Health Care Education/Training Program; Visit Provider Student in an Organized Health Care Education/Training Program
DX: Z85.048 Personal history of other malignant neoplasm of rectum, rectosigmoid junction, and anus (principal); K58.9 Irritable bowel syndrome, unspecified
CPT/HCPCS: 82653; 83630; 83993

== ENCOUNTER 2024-03-27 07:00 | Day surgery (SDC) | payer OTHER, SELFPAY ==
[2024-03-27] VITALS (7 sets, daily range): BP systolic 96–120; BP diastolic 57–68; PULSE 61–80; RESP 16; TEMP 36.2–36.4; O2SAT 97–100; BMI 26.1
--- NOTE | 2024-03-27 | COLBX_PTH ---
PATIENT: MONA UPTON LOC: EN U#:[id number] AGE/SX: 43/F ROOM: RE03/27/[address]: Dr. Rao Alvarez DO : 1980 BED: DIS: 03/27/2024 SPEC #: [id number] RECD: 03/27/24 12:46 STATUS: SHERRELL REMagdy #: [id number] DARRELL: 03/27/24 00:[address]: Rao Alvarez DEPT: SURGICAL PATHOLOGY RECD BY: Jai Awad ENTERED: 03/27/24 12:47 SP TYPE: COLON BX OTHR DR: Dr. Ben Loza DO Tissues: COLON BIOPSY Procedures: Surgery Specimen Level IV HEADER OPERATION: Colonoscopy with biopsy PRE-OP DIAGNOSIS: History of rectal cancer, constipation, irritable bowel syndrome TISSUE SUBMITTED: Anastomosis biopsy MICROSCOPIC DIAGNOSIS Anastomotic site, biopsy: Fragments of benign colonic mucosa. AM.mr 03/28/2024 MICROSCOPIC DESCRIPTION Slides are reviewed. GROSS DESCRIPTION Received in fixative is one container labeled with the patient's name and designated Anastomosis biopsy. The specimen consists of multiple irregular fragments of light avalos soft tissue that in aggregate measure 0.5 x 0.5 x 0.1 cm. The specimen is totally submitted in one cassette. 03/27/2024 TC:5 CPT:02503
[2024-03-27] MEDS: Lactated Ringers 1,000 ML 15 ML IV (07:15)
[2024-03-27 07:29] LABS: Internal QC Validated? YES +Cl - CLEAR BKGD; Pregnancy, Urine Negative Negative; Record Kit Lot#,Urine Preg HCG0000772476
--- NOTE | 2024-03-27 07:38 | PCM.PRE.AN2 ---
ASA Classification* ASA Classification ASA Classification: 2 Assessment & Plan Anesthesia* Anesthesia Assessment Anesthesia Assessment: Discussed sedation and/or anesthesia options, risks, benefits, and alternatives with patient/parents/legal guardian/POA. Questions invited. The patient/parents/legal guardian/POA seems to understand and agrees to proceed with anesthesia plan. Reviewed the physical assessment, medical history, allergy history and patient home medications list prior to surgery/procedure/anesthetic and documented any changes. Performed airway and anesthesia risk assessments. Anesthesia Type Anesthesia Type: MAC (see written pre anesthesia record for full assessment) Anesthesia Focused Assessment* Temperature: 97.6 F Pulse Rate: 66 Blood Pressure: 103/61 Respiratory Rate: 16 Pulse Ox: 100 Airway Assessment Mouth opens: >3 cm Mallampati Score: II Focused Labs Anesthesia Preop lab: CBC WBC 4.8 K/mm3 (4.4-11.0) 03/05/24 15:00 RBC 3.69 M/mm3 (4.2-5.4) L 03/05/24 15:00 Hgb 11.6 g/dL (12.0-15.0) L 03/05/24 15:00 Hct 35.2 % (37-47) L 03/05/24 15:00 Plt Count 264 K/mm3 (150-450) 03/05/24 15:00 CHEMISTRY Potassium 3.6 mmol/L (3.5-5.1) 03/05/24 15:00 Sodium 138 mmol/L (136-145) 03/05/24 15:00 Magnesium 1.8 mg/dL (1.6-2.6) 08/30/22 08:07 Phosphorus 3.9 mg/dL (2.5-4.9) 08/30/22 08:07 BUN 16 mg/dL (7-18) 03/05/24 15:00 Creatinine 0.71 mg/dL (0.55-1.02) 03/05/24 15:00 Glucose 87 mg/dL (74-106) 03/05/24 15:00 COAG PT 13.7 SECONDS (11.7-14.9) 11/05/21 19:46 Urine Test Negative Negative 03/27/24 07:15 Pre-Assessment Diagnosis/Proposed Procedure Planned Operative Procedure(s): COLONOSCOPY Anesthesia History 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 When Was Last Pacemaker Check QUESTION #4 FULL TEXT: You/Your Family Experience fever (hyperthermia) with Anesthesia Last Oral Intake Last Oral intake: Last Oral Intake NPO since 04:45 03/27/24 07:21 Meds taken in AM with sips of water? Meds patient instructed to take am of surgery PONV PONV - survival equipment repairer: PONV - survival equipment repairer Female Yes 03/25/24 10:23 HX of Motion Sickness No 03/25/24 10:23 HX of N/V After Surgery No 03/25/24 10:23 Non-Smoker Yes 03/25/24 10:23 Duration of Surgery greater No 03/25/24 10:23 than 60 minutes Number of Risk Factors 2 03/25/24 10:23 PONV Score Moderate Risk 03/25/24 10:23 Height & Weight Height & Weight: Anesthesia: Height & Weight Height 5 ft 6 in 03/27/24 07:21 Weight: 73.482 kg 03/27/24 07:21 Body Mass Index (BMI) 26.1 03/27/24 07:21 Respiratory Assessment Respiratory Assessment - survival equipment repairer: Respiratory Tract Infection Hx - survival equipment repairer Hx Respiratory Tract Infection No 03/25/24 10:23 STOP Sleep Apnea STOP Sleep Apnea - survival equipment repairer: STOP Sleep Apnea - survival equipment repairer Hx Hypertension No 03/25/24 10:23 Hx Sleep Apnea No 03/25/24 10:23 CPAP BIPAP Do you snore loudly (louder No 03/25/24 10:23 than talking or can be heard Do you often feel tired/ No 03/25/24 10:23 fatigued/ sleepy during daytime? Has anyone observed you stop No 03/25/24 10:23 breathing during sleep? STOP Results Negative 03/25/24 10:23 QUESTION #5 FULL TEXT : Do you snore loudly (louder than talking or can be heard through closed doors)? Tobacco Use History Tobacco Use History - survival equipment repairer: Tobacco Use History - survival equipment repairer Tobacco Use Smoking Status Former smoker 03/25/24 10:23 Hx Tobacco Use No 03/25/24 10:23 Years Smoking Packs Smoked per Day Smoking Cessation Date was Yes - quit smoking within 15 03/25/24 10:23 within the last 15 years years Hx Smoking Cessation Date 07/27/11 03/25/24 10:23 Hx Smoking Cessation Counseling Hematologic Medial History Hematologic Hx - survival equipment repairer: Hematologic Medical Hx - training and development specialist Hx of Blood Transfusion No 03/25/24 10:23 Hx of Transfusion in last 3 No 03/25/24 10:23 Months Date of Last Transfusion (if within last 3 months) Ever experience any problems No 03/25/24 10:23 with transfusion(s)? Specify any problems Hx of Preganancy in last 3 No 03/25/24 10:23 Months Nurse Filling Out Transfusion VCHRISTIN 03/25/24 10:23 & Questions: Date: 03/25/24 03/25/24 10:23 Time: 10:25 03/25/24 10:23 Patient unable to answer at this time (ie. confused, unrespo /Reproduction History /Reproductive History - survival equipment repairer: /Reproductive Hx- survival equipment repairer Hx Now No 03/25/24 10:23 Gestational Age (in weeks): EDC: Hx Hx Para Hx Section SAB No 03/25/24 10:23 Active Medications Active Medications: Current Medications Generic Name Dose Route Start Last Admin Trade Name Freq PRN Reason Stop Dose Admin Lactated Ringer's 1,000 mls @ 15 mls/hr 03/27/24 07:15 IV .Q48H JAKUB PFSH Medical History History of steroid therapy History of rectal cancer Encounter for ostomy care education Ostomy nurse consultation Low back pain Ingrown right big toenail RUQ pain Diarrhea due to drug Paronychia of great toe, right Severe headache Hemorrhoid Cancer Hypokalemia Ringworm Headache Muscle cramping Encounter for education Staph infection Wears contact lenses Wears glasses Anemia Back pain Syncope History of GI bleed Gastric reflux Former smoker Asthma History of pain when walking History of edema Vitamin deficiency GERD (gastroesophageal reflux disease) Frequent headaches Seasonal allergies Home Medications ?Medication ?Instructions ?Recorded ?Last Taken ?Type acetaminophen 325 mg tablet 325 mg PO ONCE PRN pain 06/16/22 Unknown History (Tylenol) ibuprofen 200 mg tablet 200 mg PO Q6H PRN pain 11/09/22 Unknown History loperamide 2 mg capsule (Imodium 2 mg PO Q6H PRN loose stool 04/18/23 Unknown History A-D) multivitamin 1 tab PO DAILY 09/12/23 Unknown History ondansetron 4 mg disintegrating 4 mg PO Q8H PRN nausea and 09/12/23 Unknown Rx tablet vomiting #30 tabs ferrous sulfate 27 mg iron tablet 27 mg PO DAILY 11/28/23 03/18/24 History mesalamine 1,000 mg rectal 1 g WA BID PRN rectal pain #30 ea 03/05/24 Unknown Rx suppository Allergy/AdvReac Type Severity Reaction Status Date / Time No Known Allergies Allergy Verified 03/27/24 07:21 Family History Father Alcoholism Anxiety Depression Hypertension Brother Alcoholism Depression Mother Asthma Anxiety Depression Cancer lung Grandfather Diabetes Alcoholism Cancer kidney Hypertension Grandmother Cancer Aunt Thyroid disorder Cancer ovarian Grandfather Colon cancer Surgical History (Updated 03/25/24 @ 10:23 by Cherise Nails) Hx of colonoscopy Hx of surgical procedure History of reversal of ileostomy History of ileostomy History of esophagogastroduodenoscopy (EGD) History of neck surgery Social History Smoking Status: Former smoker alcohol intake: current alcohol intake frequency: holidays/special occasions only details: social substance use type: does not use caffeine: Yes what type of physical activity do you participate in: none and walking seatbelt use: always do you feel safe at home: Yes additional social history: Steven Nieto Patient works at [employer] Review of Systems (Anesthesia) ROS Narrative System reviewed and no additional complaints, except as documented.
--- NOTE | 2024-03-27 08:24 | PCM.HP.BLA ---
History and Physical Date of Admission: 03/27/24 WILL UPTON, is a 43 F who presents to the office today for f/u. [facility] ED 11.05.21 with intermittent rectal bleeding, cramping and bloating for the last month; movement this date exclusively blood. PCP recommended going to ED. Evaluation without acute concern and discharged.? *[facility] established 12.21.21 with iron supplement for the last year. Intermittent BRBPR and black stool since . Has stopped NSAID use. Long-standing difficulty with heartburn and now epigastric burning. PPI has been helpful with nocturnal reflux?EGD and colonoscopy 03.02.22?EGD irregular Zline 40cm; medium hiatal hernia; gastritis.? Colonoscopy 03.02.22 ulcerated rectal mass with oozing; diverticulosis? [facility] established 03.10.22 for management of well-differentiated rectal adenocarcinoma stage IIIA. [facility] established for surgical attention (recommend chemotherapy/radiation prior to surgical intervention). [facility] involved with radiation with adjuvant chemotherapy starting . Surgical intervention of laparoscopic LAR with loop ileostomy 10.07.22.?CT abd/pel 04.11.23?right hepatic 2cm cyst; 1cm accessory spleen; induration of perirectal/lower pelvic fat with associated fluid, new.? GI outpatient:?Colonoscopy 05.23.23?surgical anastomosis of anus/rectum with inflammation, hyperplastic changes; mild inflammation of TI, no path changes. ? ? OV 06.16.23- Pt doing well after colonscopy. Is not having any pain. Reports BM are irregular. Having a BM mostly everyday. Some days are normal but other days can have diarrhea . Was told by surgeon this was normal. Is getting better with time OV 03.05.24 Patient has not been doing well. She is having increasing symptoms of constipation, rectal pain, diarrhea, incontinence and bleeding. She does feel this is related to new stressors in her life as she is going through a separation. In the past mesalamine suppositories have been helpful but she ran out recently. ROS Const Constitutional: No fatigue, fever(s) or weight change ENT ENT: No difficulty swallowing Gastro GI: Positive for abdominal pain, bloating, constipation, diarrhea, excessive flatus and Blood in stool; No belching, change in bowel habits, change in stool character, coffee ground emesis, cramping, heartburn, difficulty swallowing, feeling full early, incontinent of stools, Vomiting blood/hematemesis, loose stools, Black,tarry stools, nausea/dyspepsia, pain with swallowing, vomiting or other Musc Musculoskeletal: No joint pain Skin Skin: No yellowing of the eye or itchy eyes Psych Psychiatric: Positive for anxiety and No depression Endo Endocrine: No fatigue or weight change Aller/Imm Allergy/Immunologic: No itchy eyes Jean Claude/Lymp Hematologic/Lymphatic: No easy bleeding or easy bruising Exam Const General: cooperative and comfortable Nutritional Appearance: average body habitus and well nourished HENMT Head: normal to inspection Ears: hearing grossly normal bilaterally Nose: external nose normal Face and sinus: normal facial exam Eyes General: appearance normal, both eyes and all related structures Neck Neck: normal visual inspection Chest Chest palpation & inspection: normal inspection of the chest Resp Effort & Inspection: normal respiratory effort Cardio Palpation: normal PMI GI Inspection: normal to inspection Palpation: no hepatosplenomegaly Skin General: no rashes or lesions noted Neuro General: patient alert Extrem General: normal to inspection Psych Affect: normal affect Assessment and Plan Assessment and Plan (1) History of rectal cancer: Status: Acute Plan: Patient is here today for f/u. She is not doing well since her last visit. She is under a lot of stress which she feels has been making her symptoms worse. She has not been doing much for her symptoms since she has been out of the mesalamine suppositories. Since she is having both constipation and diarrhea with incontinence I am hesitant to give medication for constipation. I recommended she try fiber supplementation daily or increasing it in her diet. At her last appointment recommendation was to have a colonoscopy in one year so she was scheduled for this today. -She will have colonoscopy -Ordered stool testing -Ordered CBC and CMP -Refilled mesalamine suppositories -She will increase her fiber intake - (2) Constipation: Status: Chronic (3) IBS (irritable bowel syndrome): Status: Acute Orders: Orders Calprotectin, Stool Today Z85.048 - Personal history of other malignant neoplasm of rectum, rectosigmoid junction, and anus Stool Lactoferrin/WBC Today K58.9 - Irritable bowel syndrome without diarrhea, Z85.048 - Personal history of other malignant neoplasm of rectum, rectosigmoid junction, and anus Pancreatic Elastase, Fecal Today Z85.048 - Personal history of other malignant neoplasm of rectum, rectosigmoid junction, and anus CBC W/Diff, Automated Today Z85.048 - Personal history of other malignant neoplasm of rectum, rectosigmoid junction, and anus Comprehensive Metabolic Profil Today Z85.048 - Personal history of other malignant neoplasm of rectum, rectosigmoid junction, and anus Medications: New mesalamine 1 g SD BID PRN 30 ea 3RF rectal pain I have examined the patient and the H&P has been reviewed. There are no clinical changes since date of exam.
--- NOTE | 2024-03-27 08:53 | OP.CCLET_ITS ---
03/27/2024 Ben Loza Re : Colonoscopy procedure for Li Singh Dear Dr. Loza This procedure was performed on Wednesday, March 27, 2024. My impressions and recommendations are as follows: Impressions : - Diverticulosis in the recto-sigmoid colon and in the sigmoid colon. - Patent end-to-end colo-colonic anastomosis, characterized by healthy appearing mucosa. Biopsied. Recommendations : - Discharge patient to home. - Resume previous diet. - Continue present medications. - Await pathology results. - Repeat colonoscopy in 1 year for surveillance. My findings are described in the full procedure note, which is enclosed. If I can be of further assistance, please feel free to contact me at . Sincerely, Rao Alvarez, 03/27/2024 8:52:58 AM This report has been signed electronically.
--- NOTE | 2024-03-27 08:53 | OP.COLON_ITS ---
Patient Name: Li Singh Procedure Date: 03/27/2024 8:29 AM Date of : 1980 Age: 43 Procedure: Colonoscopy Indications: High risk colon cancer surveillance: Personal history of colon cancer Providers: Rao Alvarez DO Referring MD: Rao Alvarez DO Medicines: Monitored Anesthesia Care Patient Profile: This is a 43 year old female. Refer to note in patient chart for documentation of history and physical. Last Colonoscopy: within the past 3 years. Complications: No immediate complications. Procedure: Pre-Anesthesia Assessment: - Prior to the procedure, a History and Physical was performed, and patient medications and allergies were reviewed. The patient is competent. The risks and benefits of the procedure and the sedation options and risks were discussed with the patient. All questions were answered and informed consent was obtained. Patient identification and proposed procedure were verified by the physician in the pre-procedure area. Mental Status Examination: alert and oriented. Airway Examination: normal oropharyngeal airway and neck mobility. Respiratory Examination: clear to auscultation. CV Examination: normal. Prophylactic Antibiotics: The patient does not require prophylactic antibiotics. Prior Anticoagulants: The patient has taken no anticoagulant or antiplatelet agents. ASA Grade Assessment: II - A patient with mild systemic disease. After reviewing the risks and benefits, the patient was deemed in satisfactory condition to undergo the procedure. The anesthesia plan was to use monitored anesthesia care (MAC). Immediately prior to administration of medications, the patient was re-assessed for adequacy to receive sedatives. The heart rate, respiratory rate, oxygen saturations, blood pressure, adequacy of pulmonary ventilation, and response to care were monitored throughout the procedure. The physical status of the patient was re-assessed after the procedure. After I obtained informed consent, the scope was passed under direct vision. Throughout the procedure, the patient's blood pressure, pulse, and oxygen saturations were monitored continuously. The pediatric colonoscope was introduced through the anus and advanced to the cecum, identified by appendiceal orifice and ileocecal valve. The colonoscopy was performed without difficulty. The patient tolerated the procedure well. The quality of the bowel preparation was adequate. Scope In: 8:37:05 AM Scope Withdrawal Time 0 hours 6 minutes 42 seconds Scope Out: 8:46:20 AM Total Procedure Duration Time 0 hours 9 minutes 15 seconds Findings: The perianal and digital rectal examinations were normal. A few small-mouthed diverticula were found in the recto-sigmoid colon and sigmoid colon. There was evidence of a prior end-to-end colo-colonic anastomosis in the rectum. This was patent and was characterized by healthy appearing mucosa. The anastomosis was traversed. Biopsies were taken with a cold forceps for histology. Verification of patient identification for the specimen was done. Estimated blood loss was minimal. Retroflexion in the rectum was not performed due to post-surgical anatomy. Impression: - Diverticulosis in the recto-sigmoid colon and in the sigmoid colon. - Patent end-to-end colo-colonic anastomosis, characterized by healthy appearing mucosa. Biopsied. Recommendation: - Discharge patient to home. - Resume previous diet. - Continue present medications. - Await pathology results. - Repeat colonoscopy in 1 year for surveillance. Procedure Code(s): --- Professional --- 89755, Colonoscopy, flexible; with biopsy, single or multiple CPT copyright 2021 [employer]. All rights reserved. The codes documented in this report are preliminary and upon crossbar frame wirer review may be revised to meet current compliance requirements. Rao Alvarez DO 03/27/2024 8:52:58 AM This report has been signed electronically. Number of Addenda: 0 Note Initiated On: 03/27/2024 8:29 AM
--- NOTE | 2024-03-27 08:54 | PCM.POST.ANE ---
Anesthesia: Postop Eval I Current Vital Signs Temperature: 97.2 F Pulse Rate: 61 Blood Pressure: 120/66 Respiratory Rate: 16 Pulse Ox: 99 Oxygen Delivery Method: Room Air Assessment Airway patent: Yes Spontaneous unlabored respirations: Yes Mental status: Awake and Calm nausea: No Vomiting: No Anesthesia Complication: No Fluid Hydration Crystalloid volume administer (ml): 600 Total IV fluid infused: 600 Progress Note Anesthesia document: Postop Eval 1 completed: Yes
--- NOTE | 2024-03-27 09:08 | PCM.POSTANE2 ---
Anesthesia Postop Eval I Sum Postop Eval Completion status Anesthesia document: Postop Eval 1 completed: Yes Anesthesia Postop Eval I Summary Anesthesia Postop Eval I Summary: Anesthesia Postop Eval I: Assessment Summary Airway patent Yes 03/27/24 08:55 [email or web address] Spontaneous unlabored Yes 03/27/24 08:55 [email or web address] respirations Mental status Awake,Calm 03/27/24 08:55 [email or web address] nausea No 03/27/24 08:55 [email or web address] Vomiting No 03/27/24 08:55 [email or web address] Anesthesia Postop Eval I: Fluid Summary Crystalloid volume administer 600 03/27/24 08:55 [email or web address] (ml) Colloids volume administered ( ml) Blood Product volume administered (ml) Total IV fluid infused 600 03/27/24 08:55 [email or web address] Anesthesia Postop Eval I: Summary Notes Anesthesia Complication No 03/27/24 08:55 [email or web address] Anesthesia Complication Comment: Post-operative progress note Anesthesia: Postop Eval II Evaluation Mental status: Awake Pain Level: 0 nausea: No Vomiting: No
== END 2024-03-27 09:30 | disposition home or self-care (01) ==
LOC: EN 07:02 → AC 07:03
PROVIDERS: Anesthesiology; PCP Family Medicine; Referring Provider Family Medicine; Visit Provider Internal Medicine Gastroenterology
PROC: 0DJD8ZZ Inspection of Lower Intestinal Tract, Via Natural or Artificial Opening Endoscopic (ICD-10-PCS; CPT 45378; principal; 2024-03-27 08:10)
DX: Z12.11 Encounter for screening for malignant neoplasm of colon (principal); K57.30 Diverticulosis of large intestine without perforation or abscess without bleeding; Z85.048 Personal history of other malignant neoplasm of rectum, rectosigmoid junction, and anus; K59.09 Other constipation; K58.9 Irritable bowel syndrome, unspecified; Z98.0 Intestinal bypass and anastomosis status; K21.9 Gastro-esophageal reflux disease without esophagitis
CPT/HCPCS: 45380; 81025; 88305; J7120; J2405

== ENCOUNTER → 2024-05-06 | Outpatient (CLI) | payer OTHER, SELFPAY ==
--- NOTE | 2024-05-06 14:30 | CT_ITS ---
STUDY: CT ABDOMEN AND PELVIS WITH CONTRAST REASON FOR EXAM: Female, 43 years old. HX OF RECTAL CA. Radiation and chemotherapy. History of colostomy and reversal. RADIATION DOSAGE (If Supplied By Facility): CTDIvol = ( 13.03 ) mGy, DLP = ( 665.05 ) mGycm TECHNIQUE: Transaxial images were obtained from the dome of the diaphragm to the symphysis pubis with oral contrast. Oral and amp; IV Readi-CAT and amp; 75mL Isovue-300 was administered. Sagittal and coronal images were reconstructed. Individualized dose optimization techniques were used for this CT. COMPARISON: Comparison is made with prior study November 09, 2023. FINDINGS: The visualized lung bases are unremarkable. The visualized portions of the heart are within normal limits. There is decreased attenuation of the liver consistent with steatosis. Stable 1 cm cyst in the central upper aspect of the right lobe of the liver. Stable tiny subcentimeter cystic changes are also seen in the inferior aspect of the liver. Normal gallbladder and extrahepatic biliary system. Normal spleen. Normal pancreas. Normal bilateral adrenal glands. Normal right kidney. Normal left kidney. Normal visualized stomach. Normal small intestine. Months again, surgical anastomosis is seen in the rectosigmoid junction. Stable mild persistent presacral soft tissues suggests of postoperative changes. The appendix is visualized and appears normal. Normal abdominal aorta. Normal inferior vena cava. Normal retroperitoneum. Normal urinary bladder. Normal abdominal wall. Disc space narrowing at the L5-S1 level. CT/Abdomen/Pelvis WITH Contrast IMPRESSION: Stable examination. Electronically Signed: Malcolm Sargent MD at 15:31 EST ,
[2024-05-06 14:44] LABS: Absolute Lymphocyte Count 1.51 X10^3/uL (0.83-4.51); Absolute Neutrophil Count 2.6 X10^3/uL (2.0-7.7); Basophil# 0.04 X10^3/uL; Basophil% 0.9 % (0-1); Eosinophil# 0.12 X10^3/uL; Eosinophils% 2.6 % (0-5); Hematocrit 35.7 % (37-47); Hemoglobin 12.3 g/dL (12.0-15.0); Lymphocyte # 1.51 X10^3/ul (0.83-4.51); Lymphocyte % 33.1 % (19-41); Mean Corp Hgb Conc 34.5 g/dL (32-36); Mean Corpuscular Hgb 32.8 pg (27.0-32.0); Mean Corpuscular Volume 95.2 fL (81-99); Mean Platelet Vol. 9.6 fl (6.2-12.0); Monocyte# 0.29 X10^3/uL; Monocyte% 6.4 % (0-10); NRBC Flagged by Analyzer 0 % (0-5); Neutrophil # 2.59 X10^3/uL (2.7-7.7); Neutrophil % 56.8 % (47-70); Platelet Count 266 K/mm3 (150-450); RBC Distribution Width CV 12.6 % (11.6-14.6); RBC Distribution Width SD 43.8 fl (35.1-43.9); Red Blood Count 3.75 M/mm3 (4.2-5.4); White Blood Count 4.6 K/mm3 (4.4-11.0)
[2024-05-06 15:28] LABS: ALB/GLOB Ratio 1.2 RATIO (0.9-2.4); AST(SGOT) 27 U/L (15-37); Alanine Aminotransfer ALT/SGPT 35 U/L (13-56); Alkaline Phosphatase 79 U/L (45-117); Anion Gap 7 (5-15); BUN 13 mg/dL (7-18); BUN/Creat Ratio 17.6 RATIO (10-20); Calcium,Total 9.2 mg/dL (8.5-10.1); Chloride 106 mmol/L (98-107); Creatinine, Serum 0.74 mg/dL (0.55-1.02); EST Glomerular Filtration Rate 91 mL/min (>60); Est Glom Filt Rate - Afr Amer 110 mL/min (>60); Globulin 3.2 g/dL (2.2-4.2); Glucose 86 mg/dL (74-106); LDH 181 U/L (84-246); Potassium 3.5 mmol/L (3.5-5.1); Protein, Total 7.2 g/dL (6.4-8.2); Sodium Level 141 mmol/L (136-145)
[2024-05-08 04:08] LABS: Carcinoembryonic Antigen 1.1 ng/mL (0.0-4.7)
== END | disposition home or self-care (01) ==
PROVIDERS: PCP Family Medicine; Referring Provider Internal Medicine Medical Oncology; Visit Provider Internal Medicine Medical Oncology
DX: C20 Malignant neoplasm of rectum (principal); Z85.048 Personal history of other malignant neoplasm of rectum, rectosigmoid junction, and anus
CPT/HCPCS: 36415; 74177; 80053; 82378; 83615; 85025; Q9967

== ENCOUNTER → 2024-10-07 | Outpatient (CLI) | payer OTHER, SELFPAY ==
--- NOTE | 2024-10-07 16:00 | BI_ITS ---
EXAM: SCRN MAMM (CAD)W/JOSIAH BILAT DATE: 10/07/2024 CLINICAL HISTORY: F, Age 43 y/o , SCREEN FOR BREAST CANCER No family history. BREAST CANCER RISK ASSESSMENT: Not assessed. TECHNIQUE: Bilateral screening digital breast tomosynthesis with 2D and 3D images. Computer aided detection. COMPARISON: Prior exam(s) dated June 30, 2022.. FINDINGS: TISSUE DENSITY: The breast tissue is composed of scattered area of fibroglandular density. Bilateral Breast Mammographic Findings: No significant masses, calcifications or other abnormalities are identified. No suspicious masses, areas of developing architectural distortion, or suspicious calcifications. There has been no significant interval change. BI/SCRN MAMM (CAD)W/JOSIAH BILAT IMPRESSION: Right Breast: BIRADS 1 NEGATIVE. Left Breast: BIRADS 1 NEGATIVE. OVERALL FINAL ASSESSMENT: BIRADS 1 NEGATIVE RECOMMENDATION: Routine annual follow-up in 1 Year A letter with findings and recommendations will be mailed to the patient. Reading Location: [place] [id number]
== END | disposition home or self-care (01) ==
LOC: OPBI 15:45
PROVIDERS: PCP Family Medicine; Referring Provider Nurse Practitioner Women's Health; Visit Provider Nurse Practitioner Women's Health
DX: Z12.31 Encounter for screening mammogram for malignant neoplasm of breast (principal)
CPT/HCPCS: 77063; 77067

== ENCOUNTER → 2024-10-10 | Outpatient (CLI) | payer OTHER, SELFPAY ==
--- NOTE | 2024-10-10 12:53 | CT_ITS ---
PROCEDURE: ABDOMEN/PELVIS W IV CONT ONLY 10/10/2024 REASON FOR EXAM: RECTAL CA Six-month follow-up examination. TECHNIQUE: Abdomen and pelvis CT with intravenous contrast. Coronal and Sagittal reconstruction series were provided. PATIENT PREPARATION: Per protocol ORAL CONTRAST TYPE: None. CONTRAST: Isovue-300 VOLUME: 95 mL One or more dose reduction techniques were used (e.g., Automated exposure control, adjustment of the mA and/or kV according to patient size, use of iterative reconstruction technique. RADIATION DOSE SUMMARY: CTDlvol: 11.5 mGy DLP: 721.36 mGycm COMPARISON: Comparison is made with prior study dated May 06, 2024. FINDINGS: Lung bases: Unremarkable Liver: Stable small hepatic cysts. Gallbladder: Unremarkable Spleen: Normal size. Pancreas: Normal size without evidence of mass surrounding inflammation or ductal dilation. Adrenals: Unremarkable Kidneys: Normal renal sizes. No hydronephrosis. Bladder: Unremarkable Reproductive Organs: Normal uterine size and contour. Ovaries are unremarkable. Bowel: Surgical anastomosis seen at the level of the rectum. Appendix: Unremarkable Lymph nodes: Unremarkable. Vasculature: The abdominal aorta and IVC are normal. Peritoneum / Retroperitoneum: Unremarkable Bones: Disc space narrowing and degeneration and spondylosis at the L5-S1 level. CT/Abdomen/Pelvis W IV Cont ONLY IMPRESSION: Stable examination. No acute abnormality is seen. Reading Location: [facility]
[2024-10-10 13:09] LABS: Absolute Lymphocyte Count 1.49 X10^3/uL (0.83-4.51); Basophil# 0.04 X10^3/uL; Eosinophil# 0.07 X10^3/uL; Eosinophils% 1.8 % (0-5); Hematocrit 34.7 % (37-47); Hemoglobin 12.1 g/dL (12.0-15.0); Lymphocyte # 1.49 X10^3/ul (0.83-4.51); Lymphocyte % 38.6 % (19-41); Mean Corp Hgb Conc 34.9 g/dL (32-36); Mean Corpuscular Hgb 32.6 pg (27.0-32.0); Mean Corpuscular Volume 93.5 fL (81-99); Mean Platelet Vol. 9.1 fl (6.2-12.0); Monocyte# 0.25 X10^3/uL; Monocyte% 6.5 % (0-10); NRBC Flagged by Analyzer 0 % (0-5); Neutrophil % 51.8 % (47-70); Platelet Count 252 K/mm3 (150-450); RBC Distribution Width CV 12.4 % (11.6-14.6); RBC Distribution Width SD 42.8 fl (35.1-43.9); Red Blood Count 3.71 M/mm3 (4.2-5.4); White Blood Count 3.9 K/mm3 (4.4-11.0)
[2024-10-10 13:59] LABS: AST(SGOT) 22 U/L (<=31); Alanine Aminotransfer ALT/SGPT 13 U/L (<=34); Albumin, Serum 4.6 g/dL (3.5-5.0); Alkaline Phosphatase 68 U/L (35-104); Anion Gap 10 (5-15); BUN 16 mg/dL (4-19); BUN/Creat Ratio 20.2 RATIO (10-20); Calcium,Total 9.6 mg/dL (7.6-11.0); Chloride 104 mmol/L (98-108); Creatinine, Serum 0.81 mg/dL (0.70-1.20); EST Glomerular Filtration Rate 92 (>60); Ferritin 59 ng/mL (22-378); Globulin 2.3 g/dL (2.2-4.2); Glucose 94 mg/dL (70-99); Iron 95 ug/dL (50-170); Iron Binding Capacity,Total 348 ug/dL (250-450); Iron Binding Capacity,Unsat 253 ug/dL (228-428); LDH 151 U/L (84-246); Protein, Total 6.9 g/dL (5.9-8.4); Sodium Level 140 mmol/L (133-145); Total Bilirubin 0.41 mg/dL (0.00-1.30)
[2024-10-11 04:07] LABS: Carcinoembryonic Antigen 1.2 ng/mL (0.0-4.7)
== END | disposition home or self-care (01) ==
LOC: CT 12:43
PROVIDERS: PCP Family Medicine; Referring Provider Internal Medicine Medical Oncology; Visit Provider Internal Medicine Medical Oncology
DX: C20 Malignant neoplasm of rectum (principal); D64.9 Anemia, unspecified
CPT/HCPCS: 36415; 74177; 80053; 82378; 82728; 83540; 83550; 83615; 85025; Q9967

== ENCOUNTER → 2024-10-30 | Outpatient (CLI) | payer OTHER, SELFPAY ==
[2024-10-30 17:27] LABS: HIV Nonreactive (Nonreactive); Hepatitis B Surface Antigen Nonreactive (Nonreactive); Hepatitis C Antibody Nonreactive (Nonreactive); Syphilis Antibodies Nonreactive (Nonreactive)
[2024-11-01 05:07] LABS: HSV 1 IgG Reactive (Non Reactive); HSV 2 IgG Non Reactive (Non Reactive)
[2024-11-02 06:07] LABS: Chlamydia By Nucleic Acid AMP Negative (Negative); Gonococcus By Nucleic Acid AMP Negative (Negative)
[2024-11-04 18:08] LABS: HPV APTIMA, High Risk Negative (Negative)
== END | disposition home or self-care (01) ==
PROVIDERS: PCP Family Medicine; Referring Provider Nurse Practitioner Family; Visit Provider Nurse Practitioner Family
DX: Z12.4 Encounter for screening for malignant neoplasm of cervix (principal); Z11.3 Encounter for screening for infections with a predominantly sexual mode of transmission; N89.8 Other specified noninflammatory disorders of vagina
CPT/HCPCS: 36415; 86695; 86696; 86703; 86780; 86803; 87070; 87205; 87340; 87491; 87591; 87624; 88175; G0145

== ENCOUNTER → 2025-04-07 | Outpatient (CLI) | payer OTHER, SELFPAY ==
--- NOTE | 2025-04-07 14:52 | CT_ITS ---
PROCEDURE: ABDOMEN/PELVIS W IV CONT ONLY 04/07/2025 REASON FOR EXAM: RECTAL CA TECHNIQUE: Procedure Code: [id number] Modality: CT Procedure: ABDOMEN/PELVIS W IV CONT ONLY Coronal and Sagittal reconstruction series were provided. CONTRAST: Isovue 370 VOLUME: 100 mL One or more dose reduction techniques were used (e.g., Automated exposure control, adjustment of the mA and/or kV according to patient size, use of iterative reconstruction technique. RADIATION DOSE SUMMARY: CTDlvol: 17.42 mGy DLP: 410.17 mGycm COMPARISON: CT abdomen and pelvis with IV contrast, 05/06/2024, 10/10/2024. FINDINGS: Lung bases: The lung bases are clear. There are no pleural effusions. The heart size is normal. There is no pericardial effusion. There is no calcific vascular disease of the coronary arteries evident. Liver: Normal size. No mass. There is a stable 8 mm in diameter cyst in the left hepatic lobe. There is a stable 3 mm cyst in the right hepatic lobe. Gallbladder: Normal. Spleen: Normal size. There is a benign splenule anterior to the spleen. Pancreas: Normal size without evidence of mass surrounding inflammation or ductal dilation. Adrenals: Normal. Kidneys: Normal renal sizes. No hydronephrosis. Bladder: The bladder has a normal unenhanced appearance. Reproductive Organs: The uterus is unremarkable. The ovaries are not identified. There is no free fluid in the pelvis. There is no inguinal lymphadenopathy. Bowel: There is a staple line at the sigmoid rectal junction consistent with partial distal colectomy. The gastrointestinal tract is otherwise unremarkable. Appendix: The appendix is not identified. There is no inflammatory process identified in the right lower quadrant to suggest appendicitis. Lymph nodes: No suspicious lymph node enlargement. Vasculature: The abdominal aorta and IVC are normal. Peritoneum / Retroperitoneum: There has been sampling of left periaortic lymph nodes. There are no abnormal intra or retroperitoneal masses or fluid collections. There are no abdominal wall defects. Bones: There is degenerative disc disease, L5-S1. CT/Abdomen/Pelvis W IV Cont ONLY IMPRESSION: 1. Status post partial distal colectomy. 2. Other findings as noted. There is no significant change since the prior ex am. Reading Location: [place] [id number]
[2025-04-07 15:07] LABS: Hematocrit 33.9 % (37-47); Hemoglobin 11.6 g/dL (12.0-15.0); Immature Granulocytes Count 0.010 X10^3/uL (0.0-0.0); Mean Corp Hgb Conc 34.2 g/dL (32-36); Mean Corpuscular Volume 93.6 fL (81-99); Mean Platelet Vol. 8.9 fl (6.2-12.0); NRBC Flagged by Analyzer 0 % (0-5); Platelet Count 267 K/mm3 (150-450); RBC Distribution Width CV 12.7 % (11.6-14.6); RBC Distribution Width SD 43.7 fl (35.1-43.9); Red Blood Count 3.62 M/mm3 (4.2-5.4); White Blood Count 4.2 K/mm3 (4.4-11.0)
[2025-04-07 15:53] LABS: AST(SGOT) 24 U/L (<=31); Alanine Aminotransfer ALT/SGPT 11 U/L (<=34); Albumin, Serum 4.6 g/dL (3.5-5.0); Alkaline Phosphatase 62 U/L (35-104); Anion Gap 11 (5-15); BUN 11 mg/dL (4-19); BUN/Creat Ratio 17.4 RATIO (10-20); Calcium,Total 9.3 mg/dL (7.6-11.0); Carbon Dioxide 25.8 mmol/L (21.0-32.0); Chloride 104 mmol/L (98-108); Ferritin 55 ng/mL (22-378); Globulin 2.2 g/dL (2.2-4.2); Glucose 84 mg/dL (70-99); Iron 67 ug/dL (50-170); Iron Binding Capacity,Total 335 ug/dL (250-450); Iron Binding Capacity,Unsat 268 ug/dL (228-428); LDH 170 U/L (84-246); Potassium 3.8 mmol/L (3.3-5.1)
== END | disposition home or self-care (01) ==
LOC: CT 14:40
PROVIDERS: PCP Family Medicine; Referring Provider Internal Medicine Medical Oncology; Visit Provider Internal Medicine Medical Oncology
DX: C20 Malignant neoplasm of rectum (principal); R19.5 Other fecal abnormalities
CPT/HCPCS: 36415; 74177; 80053; 82728; 83540; 83550; 83615; 85025; Q9967

== ENCOUNTER 2025-05-14 11:30 | Outpatient (RCR) | payer OTHER, SELFPAY ==
--- NOTE | 2024-10-15 17:42 | HP.PTEVAL ---
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 Date of Evaluation: 10/15/24 Physical Therapist: Francheska Randhawa Visit Plan Frequency: 1-2x /Week Duration: 3 Months Plan: Continue 2 x week. Continue pelvic floor manual therapy . Rectal exam at some point. Work on ileostomy scar right lower abdomen. Correct upslip and low back. Gave her deep breathing for pelvic floor relaxation (had trouble belly breathing) Subjective Subjective: 2021 she was diagnosed with rectal cancer Stage 3. Radiation and chemo and surgery. They removed her rectum and reconstructed it Colectomy Partial Laparoscopic surgery 10/07/22. Temporary ileostomy for 3 months and then they reversed it. She had no control at all and other days it is terrible. She has tried diet control. Fibercon has helped a lot. Can normally start with constipation and then cluster and diahhrrea. She only goes every other day. Coconut water helps. Some times she is in the bathroom most of the evening. An urgency for bowel movements can come on quickly. No control with gas. LARS syndrome. She doesn't have pain with bowel movements. Pain and pressure has gotten better since surgery. Sometimes she feels like she needs to go but she can't go. Sometimes it is the opposite. She can have intermittent cramping vaginally. Pain with intercourse even before the surgery. Deep pain with penetration. 3-4/10. Sometimes more mild at 2/10. She doesn't have any rectal pain anymore. She can get pressure with bloating. No low back pain. She had years of low back pain before the surgery. 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 She is on her feet all day. Her biggest goal is to improve her control with bowels. She gets tenderness in area of right lower abdomen at the ileostomy scar at times. Tender at times. No hernia. Achy 4-5/10. She was having bowel incontinence episodes 2-3 x week but since Fibercon it has only been one time a week. Doctor thought she could do a sacral nerve stimulator (visit in December for consult). She has occasional drops of urine. She just wore a panti liner. Even now, she isn't having much urinary incontinence. She has been in remission since her surgery. She had twins vaginal delivery 22 years ago. Pain Right lower abdomen: Pain Intensity (Out of 10): 5 Pain Intensity Range: 5 Objective Objective: Vaginal exam consent for treatment today- did not complete rectal exam today Pelvic floor muscle exam LAYCOCK 2+/8/2/2 DIFFICULTY RELAXING BETWEEN CONTRACTIONS Moderate pelvic floor tightness bilaterally -tender Difficult to evaluate for rectocele or cystocele as she has difficulty bearing down into pelvic floor CRAD-8 20 MICHELE-6 6 POPDI-6 0 Left upslip Tender at ilieostomy and right lower abdomen Goals Goal 1:: Stefanie will be able to hold back gas to avoid embarrassment. Goal Time Frame: 8-12 Weeks Goal 2:: Stefanie will not have any fecal incontinence episodes over the course of 1 month. Goal Time Frame: 8-12 Weeks Goal 3:: Stefanie will be able to tolerate vaginal penetration without pain. 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 Goal Time Frame: 8-12 Weeks Rehabilitation Potential Physical Therapy Diagnosis: pelvic pain, fecal urgency, costipation, fecal incontinence Rehabilitation Potential: Good Anticipated Interventions Patient/Client Instruction: Educate patient on: Condition and Plan of Care For the Purpose of:: To decrease pain, To improve muscle performance and motor function, To improve ability of physical actions for home/community/work/leisure, To improve health and function and To improve self management Therapeutic Exercise to Include: Strength training, Neuromotor development and Relaxation training Comment: Pelvic floor strengthening to improve control of bowels For the Purpose of:: To decrease pain, To increase tolerance to activity/condition/position, To decrease soft tissue restriction, To improve health and function and To improve self management Manual Therapy Techniques to Include: Trigger point massage, Massage, Mobilization, Functional dry needling and Soft tissue mobilization For the Purpose of:: To decrease pain, To improve muscle performance and motor function, To improve health and function and To improve self management Text: Thank you for the opportunity to evaluate your patient. For Medicare and Medicare HMO plans, please review the plan of care and approve it. It will need to be FAXED BACK to us at [phone] for Medicare purposes. For Medicare only, by signing this I certify the plan of care. Please let me know if there are questions or concerns regarding this plan of care. Physician Signature: Date:
--- NOTE | 2025-05-14 16:50 | HP.PTDCSUM_ITS ---
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 Discharge Date: 05/14/25 Please see the following information for a summary of their discharge status. Subjective Subjective: No significant bowel incontinence since last visit. Overall she feels significant improvement since starting PT. She has improved by 70-75% with her fecal incontinence episodes. She still has some difficulty holding back gas but plans to continue the pelvic floor strengthening at home. Tailbone pain, low back pain today 10 (she fell earlier today on a wet leaf and landed on her tailbone). She feels ready for discharge. Pain Right lower abdomen: Pain Intensity (Out of 10): 3 Overall Improvement % Improvement: 70 Objective Objective/Function: LAYCOCK 08/28// VERY MILD PELVIC FLOOR TIGHTNESS PELVIC FLOOR BILATERALLY - WORSE ON RIGHT SIDE Overall Stefanie's pelvic floor strength and tightness improved nicely with therapy. Her control is significantly improved and she reports her quality of life is greatly improved now that she is not having the bowel incontinence episodes. She is ready for discharge. Goals Goal 1:: Stefanie will be able to hold back gas to avoid embarrassment. 05/14/25 She feels 50% improved with her ability to hold back gas. Goal Progress: Progressing Goal 2:: Stefanie will not have any fecal incontinence episodes over the course of 1 month. 05/14/25 She feels 70-75% improved with her goals. Goal Progress: Progressing Goal 3:: Stefanie will be able to tolerate vaginal penetration without pain. 05/14/25 No comment as she has not had intercourse. 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 05/14/25 She feels 90% improved with her pelvic pain, low back pain. Low back pain, pelvic pain averaging 5-6/10 at most. Most of the time, pain averaging 3/10. Goal Progress: Progressing Plan Plan: D/C from PT and closing her chart. D/C Information Discharge Comments: Patient reports 70-75% improvement overall since starting PT and will be continuing the exercises on her own at this time. d/c sentence: If there are questions or concerns regarding this patient's physical therapy, please feel free to call me at [phone]. Thank you for the referral of this patient. Sincerely, Francheska Randhawa Balance/Gait/Functional tests Improvement % Improvement: 70
== END 2025-05-14 17:25 | disposition home or self-care (01) ==
LOC: PT 11:30
PROVIDERS: PCP Family Medicine
DX: R19.8 Other specified symptoms and signs involving the digestive system and abdomen (principal)
CPT/HCPCS: 97110; 97112; 97140; 97162; 97530